=== PATIENT | male | born 1935 | race Caucasian/White ===

== ENCOUNTER 2017-05-09 11:00 | Inpatient (IN) | payer MEDICARE ==
[~2017-05-09] VITALS: Ht 182.9 cm; Wt 81.3 kg
[~2017-05-09 11:00] MED LIST: GABAPENTIN300 MG PO; HYDROCHLOROTHIA25 MG PO; NIFEDIPINE ER30 M1 PO; NORCO 10-325 T1 EACH PO; POTASSIUM CHLO10 ME1 PO; SIMVASTATIN40 MG PO; TRAZODONE HCL50 MG PO
--- OUTSIDE RECORDS SUMMARY | 2017-05-09 11:02 | XMS REPORT ---
Author Author [facility] Address Unknown Phone Unavailable Care Team Providers Care Harvesting Supervisor Name Role Phone PRINCE PADILLA Unavailable Unavailable Problems This patient has no known problems. Allergies, Adverse Reactions, Alerts This patient has no known allergies or adverse reactions. Medications This patient has no known medications. Results Test Description Test Time Test Comments Text Results Atomic Results Result Comments CT, BRAIN, WITHOUT CONTRAST 2017-01-23 15:19:00 Reason for exam:-> headacheWhat is the patient's sedation requirement?->No Sedation FINAL REPORT CT head without contrast 01/23/2017 3:17 PM CLINICAL HISTORY: headachetrauma TECHNIQUE: Axial noncontrast CT images through the head were obtained. This examination was performed according to our departmental dose optimization program, which includes automated exposure control, adjustment of the mA and/or kV according to patient size, and/or use of iterated reconstruction technique. COMPARISON: None available FINDINGS: There is no hemorrhage, extra-axial collection, mass, or midline shift. 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 There is mild microvascular ischemia in the supratentorial white matter. There is atherosclerotic calcification of the intracranial arterial vasculature. There is generalized parenchymal volume loss. The visualized paranasal sinuses and mastoid air cells are well aerated. The skull is intact. IMPRESSION: No intracranial hemorrhage or mass effect. Chronic appearing findings as discussed. If concern for acute pathology persists, further evaluation with MRI is recommended. Signed: Raffi Laguna Verified Date/Time: 01/23/2017 15:19:20 Reading Location: [facility] C013V Neuro Reading Room , HAND, 3 VIEWS, RIGHT 2017-01-23 14:12:00 Reason for exam:->traumaShould this be performed at the bedside?->No FINAL REPORT INDICATION:Right hand pain after fall. COMPARISON: None. TECHNIQUE: Right hand radiograph three views. FINDINGS / IMPRESSION:No fracture or malalignment is demonstrated. In the soft tissues of the distal thumb there is a 2 mm metallic densities suspicious for foreign body. Joint space loss with mild osteophytosis is noted at the first CMC joint, STT joint, and long finger DIP joint. Signed: Geraldo Mac MDReport Verified Date/Time: 01/23/2017 14:12:23 Reading Location: [facility] C013X Ortho Consult Reading Room , KNEE, COMPLETE (4 VIEWS), LEFT 2017-01-23 14:01:00 Reason for exam:-> FALLShould this be performed at the bedside?->No FINAL REPORT Left femur dated 01/23/2017 Clinical Information: trauma COMMENT: 4 views of the right femur were submitted for interpretation. The right femur is intact. Degenerative changes are seen in the right. The soft tissue of the right thigh is normal. There is diffuse vessel calcification involving the right femoral and popliteal arteries. IMPRESSION: No fracture in the right femur. Left knee dated 01/23/2017 Comment: 4 views of the left knee were submitted for interpretation. No fracture, dislocation, or subluxation seen in the left knee. Mild degenerative changes in the left knee with marginal osteophyte formation. No joint or suprapatellar effusion present. Prepatellar subcutaneous soft tissue emphysema is noted. There is vascular calcification involving the popliteal artery. Impression: Prepatellar subcutaneous soft tissue edema. Left hand dated 01/23/2017 Clinical Information: trauma Comment: 5 views of the left hand were submitted for interpretation. The scaphoid is small in caliber and sclerotic in appearance. There is widening of the scapholunate space. There is generalized osteopenia. Old fracture seen involving the left fifth metacarpal. Soft tissue of the left hand is unremarkable. No soft tissue laceration or radiopaque foreign body noted. Impression: Small sclerotic scaphoid and widening of the scapholunate space suggestive of prior trauma. Pelvis dated 01/23/2017 Comment: Single frontal view has demonstrated intact sacrum, ilium, ischium, and pubic bones. The SI and hip joints are well maintained bilaterally. Impression: No fracture in the pelvis. Signed: Contreras Sahu Verified Date/Time: 01/23/2017 14:01:34 Reading Location: [facility] C013Y CT Body Reading Room , FEMUR, MIN. 2 VIEWS, RIGHT 2017-01-23 14:01:00 Reason for exam:-> traumaShould this be performed at the bedside?->No FINAL REPORT Left femur dated 01/23/2017 Clinical Information: trauma COMMENT: 4 views of the right femur were submitted for interpretation. The right femur is intact. Degenerative changes are seen in the right. The soft tissue of the right thigh is normal. There is diffuse vessel calcification involving the right femoral and popliteal arteries. IMPRESSION: No fracture in the right femur. Left knee dated 01/23/2017 Comment: 4 views of the left knee were submitted for interpretation. No fracture, dislocation, or subluxation seen in the left knee. Mild degenerative changes in the left knee with marginal osteophyte formation. No joint or suprapatellar effusion present. Prepatellar subcutaneous soft tissue emphysema is noted. There is vascular calcification involving the popliteal artery. Impression: Prepatellar subcutaneous soft tissue edema. Left hand dated 01/23/2017 Clinical Information: trauma Comment: 5 views of the left hand were submitted for interpretation. The scaphoid is small in caliber and sclerotic in appearance. There is widening of the scapholunate space. There is generalized osteopenia. Old fracture seen involving the left fifth metacarpal. Soft tissue of the left hand is unremarkable. No soft tissue laceration or radiopaque foreign body noted. Impression: Small sclerotic scaphoid and widening of the scapholunate space suggestive of prior trauma. Pelvis dated 01/23/2017 Comment: Single frontal view has demonstrated intact sacrum, ilium, ischium, and pubic bones. The SI and hip joints are well maintained bilaterally. Impression: No fracture in the pelvis. Signed: Contreras Sahuort Verified Date/Time: 01/23/2017 14:01:34 Reading Location: [facility] C013Y CT Body Reading Room , PELVIS, 1 OR 2 VIEWS 2017-01-23 14:01:00 Reason for exam:->FALLShould this be performed at the bedside?->No FINAL REPORT Left femur dated 01/23/2017 Clinical Information: trauma COMMENT: 4 views of the right femur were submitted for interpretation. The right femur is intact. Degenerative changes are seen in the right. The soft tissue of the right thigh is normal. There is diffuse vessel calcification involving the right femoral and popliteal arteries. IMPRESSION: No fracture in the right femur. Left knee dated 01/23/2017 Comment: 4 views of the left knee were submitted for interpretation. No fracture, dislocation, or subluxation seen in the left knee. Mild degenerative changes in the left knee with marginal osteophyte formation. No joint or suprapatellar effusion present. Prepatellar subcutaneous soft tissue emphysema is noted. There is vascular calcification involving the popliteal artery. Impression: Prepatellar subcutaneous soft tissue edema. Left hand dated 01/23/2017 Clinical Information: trauma Comment: 5 views of the left hand were submitted for interpretation. The scaphoid is small in caliber and sclerotic in appearance. There is widening of the scapholunate space. There is generalized osteopenia. Old fracture seen involving the left fifth metacarpal. Soft tissue of the left hand is unremarkable. No soft tissue laceration or radiopaque foreign body noted. Impression: Small sclerotic scaphoid and widening of the scapholunate space suggestive of prior trauma. Pelvis dated Comment: Single frontal view has demonstrated intact sacrum, ilium, ischium, and pubic bones. The SI and hip joints are well maintained bilaterally. Impression: No fracture in the pelvis. Signed: Contreras Sahu MDReport Verified Date/Time: 01/23/2017 14:01:34 Reading Location: [facility] C013Y CT Body Reading Room , HAND, 3 VIEWS, LEFT 2017-01-23 14:01:00 Reason for exam:->FALL FINAL REPORT Left femur dated 01/23/2017 Clinical Information : trauma COMMENT: 4 views of the right femur were submitted for interpretation. The right femur is intact. Degenerative changes are seen in the right. The soft tissue of the right thigh is normal. There is diffuse vessel calcification involving the right femoral and popliteal arteries. IMPRESSION: No fracture in the right femur. Left knee dated 01/23/2017 Comment: 4 views of the left knee were submitted for interpretation. No fracture, dislocation, or subluxation seen in the left knee. Mild degenerative changes in the left knee with marginal osteophyte formation. No joint or suprapatellar effusion present. Prepatellar subcutaneous soft tissue emphysema is noted. There is vascular calcification involving the popliteal artery. Impression: Prepatellar subcutaneous soft tissue edema. Left hand dated 01/23/2017 Clinical Information: trauma Comment: 5 views of the left hand were submitted for interpretation. The scaphoid is small in caliber and sclerotic in appearance. There is widening of the scapholunate space. There is generalized osteopenia. Old fracture seen involving the left fifth metacarpal. Soft tissue of the left hand is unremarkable. No soft tissue laceration or radiopaque foreign body noted. Impression: Small sclerotic scaphoid and widening of the scapholunate space suggestive of prior trauma. Pelvis dated 01/23/2017 Comment: Single frontal view has demonstrated intact sacrum, ilium, ischium, and pubic bones. The SI and hip joints are well maintained bilaterally. Impression: No fracture in the pelvis. Signed: Contreras Sahu MDRort Verified Date/Time: 01/23/2017 14:01:34 Reading Location: [address] Body Reading Room C METABOLIC PANEL 2016-06-10 05:51:00 SODIUM (BEAKER) (test payo=141) 135 meq/L 136-145 POTASSIUM (BEAKER) (test iqnd=815) 4.5 meq/L 3.5-5.1 CHLORIDE (BEAKER) (test gfvc=156) 101 meq/L 98-107 CO2 (BEAKER) (test eywv=995) 26 meq/L 22-29 BLOOD UREA NITROGEN (BEAKER) (test fgyy=897) 14 mg/dL 7-21 CREATININE (BEAKER) (test qwyl=682) 0.73 mg/dL 0.57-1.25 GLUCOSE RANDOM (BEAKER) (test ukhp=509) 109 mg/dL 70-105 CALCIUM (BEAKER) (test yeue=798) 8.5 mg/dL 8.4-10.2 EGFR (BEAKER) (test harx=1358) 104 mL/min/1.73 sq m ESTIMATED GFR IS NOT ACCURATE CREATININE CLEARANCE IN PREDICTING GLOMERULAR FILTRATION RATE. ESTIMATED GFR IS NOT APPLICABLE FOR DIALYSIS PATIENTS. CBC (HEMOGRAM ONLY)2016-06-09 10:41:00* Test Item Value Reference Range Comments WHITE BLOOD CELL COUNT (BEAKER) (test tqax=143) 85.7 K/ L 4.0-10.0 RED BLOOD CELL COUNT (BEAKER) (test htiu=195) 3.29 M/ L 4.20-5.80 HEMOGLOBIN (BEAKER) (test beys=037) 10.0 GM/DL 13.0-16.8 HEMATOCRIT (BEAKER) (test fbpr=170) 32.0 % 40.0-50.0 MEAN CORPUSCULAR VOLUME (BEAKER) (test ygbw=364) 97.2 fL 82.0-98.0 MEAN CORPUSCULAR HEMOGLOBIN (BEAKER) (test vxkg=525) 30.5 pg 27.0-33.0 MEAN CORPUSCULAR HEMOGLOBIN CONC (BEAKER) (test fdsk=534) 31.3 GM/DL 32.0- 36.0 RED CELL DISTRIBUTION WIDTH (BEAKER) (test kisj=494) 16.1 % 10.3-14.2 PLATELET COUNT (BEAKER) (test jogn=020) 172 K/CU MM 150-430 MEAN PLATELET VOLUME (BEAKER) (test cajs=101) 6.9 fL 6.5-10.5 NUCLEATED RED BLOOD CELLS (BEAKER) (test xbrv=510) 0 /100 WBC 0-0 0.000.560.900.000.000.400.000.000.000.000.000.000.900.000.002.320.000.000.000.00 0.000.000.800.000.002.550.000.000.000.000.000.000.800.000.000.160.000.000.000.00 0.000.000.900.000.001.930.000.000.000.000.000.000.900.000.001.520.000.00[facility] MET[facility] [id number] 05:49:00* Test Item Value Reference Range Comments SODIUM (BEAKER) (test dnkn=867) 132 meq/L 136-145 POTASSIUM (BEAKER) (test evxh=440) 4.8 meq/L 3.5-5.1 CHLORIDE (BEAKER) (test qwdd=845) 100 meq/L 98-107 CO2 (BEAKER) (test utmv=692) 22 meq/L 22-29 BLOOD UREA NITROGEN (BEAKER) (test mzio=899) 9 mg/dL 7-21 CREATININE (BEAKER) (test aygo=702) 0.72 mg/dL 0.57-1.25 GLUCOSE RANDOM (BEAKER) (test dbiy=316) 122 mg/dL 70-105 CALCIUM (BEAKER) (test tcuu=993) 8.3 mg/dL 8.4-10.2 EGFR (BEAKER) (test denf=5101) 105 mL/min/1.73 sq m ESTIMATED GFR IS NOT ACCURATE CREATININE CLEARANCE IN PREDICTING GLOMERULAR FILTRATION RATE. ESTIMATED GFR IS NOT APPLICABLE FOR DIALYSIS PATIENTS. CBC (HEMOGRAM ONLY)2016-06-08 08:35:00* Test Item Value Reference Range Comments WHITE BLOOD CELL COUNT (BEAKER) (test ewql=010) 102.0 K/ L 4.0-10.0 RED BLOOD CELL COUNT (BEAKER) (test ocqm=631) 3.89 M/ L 4.20-5.80 HEMOGLOBIN (BEAKER) (test ozcc=852) 11.3 GM/DL 13.0-16.8 HEMATOCRIT (BEAKER) (test hahf=472) 37.8 % 40.0-50.0 MEAN CORPUSCULAR VOLUME (BEAKER) (test zfhn=799) 97.1 fL 82.0-98.0 MEAN CORPUSCULAR HEMOGLOBIN (BEAKER) (test qqgt=768) 29.0 pg 27.0-33.0 MEAN CORPUSCULAR HEMOGLOBIN CONC (BEAKER) (test jwax=073) 29.8 GM/DL 32.0- 36.0 RED CELL DISTRIBUTION WIDTH (BEAKER) (test soae=060) 15.6 % 10.3-14.2 PLATELET COUNT (BEAKER) (test jhrc=106) 151 K/CU MM 150-430 MEAN PLATELET VOLUME (BEAKER) (test bcfg=273) 7.0 fL 6.5-10.5 NUCLEATED RED BLOOD CELLS (BEAKER) (test ovgs=603) 0 /100 WBC 0-0 0.000.900.900.000.001.300.000.000.000.000.000.900.900.000.000.000.000.00BASIC METABOLIC [id number] 05:46:00* Test Item Value Reference Range Comments SODIUM (BEAKER) (test lrmx=918) 131 meq/L 136-145 POTASSIUM (BEAKER) (test gtkm=744) 5.0 meq/L 3.5-5.1 Specimen slightly hemolyzed CHLORIDE (BEAKER) (test hvfo=906) 99 meq/L 98-107 CO2 (BEAKER) (test xluy=150) 24 meq/L 22-29 BLOOD UREA NITROGEN (BEAKER) (test wkcf=697) 7 mg/dL 7-21 CREATININE (BEAKER) (test lzov=616) 0.73 mg/dL 0.57-1.25 Specimen slightly hemolyzed GLUCOSE RANDOM (BEAKER) (test iyrn=059) 183 mg/dL 70-105 CALCIUM (BEAKER) (test zvyh=852) 8.9 mg/dL 8.4-10.2 EGFR (BEAKER) (test ulem=0159) 104 mL/min/1.73 sq m ESTIMATED GFR IS NOT ACCURATE CREATININE CLEARANCE IN PREDICTING GLOMERULAR FILTRATION RATE. ESTIMATED GFR IS NOT APPLICABLE FOR DIALYSIS PATIENTS. CBC (HEMOGRAM ONLY)2016-06-07 09:34:00* Test Item Value Reference Range Comments WHITE BLOOD CELL COUNT (BEAKER) (test hody=019) 89.0 K/ L 4.0-10.0 RED BLOOD CELL COUNT (BEAKER) (test fekj=971) 3.41 M/ L 4.20-5.80 HEMOGLOBIN (BEAKER) (test arlj=900) 10.6 GM/DL 13.0-16.8 HEMATOCRIT (BEAKER) (test remc=353) 32.9 % 40.0-50.0 MEAN CORPUSCULAR VOLUME (BEAKER) (test tqgl=925) 96.5 fL 82.0-98.0 MEAN CORPUSCULAR HEMOGLOBIN (BEAKER) (test yvky=073) 31.1 pg 27.0-33.0 MEAN CORPUSCULAR HEMOGLOBIN CONC (BEAKER) (test ulsm=888) 32.2 GM/DL 32.0- 36.0 RED CELL DISTRIBUTION WIDTH (BEAKER) (test bnih=221) 15.3 % 10.3-14.2 PLATELET COUNT (BEAKER) (test whgl=020) 136 K/CU MM 150-430 MEAN PLATELET VOLUME (BEAKER) (test kwnv=510) 6.8 fL 6.5-10.5 NUCLEATED RED BLOOD CELLS (BEAKER) (test rode=288) 0 /100 WBC 0-0 0.000.800.000.001.690.000.000.000.000.000.000.800.000.002.220.000.000.000.000.00 0.000.900.000.000.000.000.000.000.000.000.000.900.000.000.000.000.00BASIC METABOLIC [id number] 05:28:00* Test Item Value Reference Range Comments SODIUM (BEAKER) (test krif=450) 132 meq/L 136-145 POTASSIUM (BEAKER) (test xijr=380) 4.9 meq/L 3.5-5.1 CHLORIDE (BEAKER) (test kult=090) 100 meq/L 98-107 CO2 (BEAKER) (test qfnt=251) 25 meq/L 22-29 BLOOD UREA NITROGEN (BEAKER) (test tcee=922) 11 mg/dL 7-21 CREATININE (BEAKER) (test kbwh=047) 0.82 mg/dL 0.57-1.25 GLUCOSE RANDOM (BEAKER) (test lveu=188) 152 mg/dL 70-105 CALCIUM (BEAKER) (test pqam=033) 8.3 mg/dL 8.4-10.2 EGFR (BEAKER) (test knuh=1415) 91 mL/min/1.73 sq m ESTIMATED GFR IS NOT ACCURATE CREATININE CLEARANCE IN PREDICTING GLOMERULAR FILTRATION RATE. ESTIMATED GFR IS NOT APPLICABLE FOR DIALYSIS PATIENTS. HEMOGLOBIN AND [id number] 17:06:00* Test Item Value Reference Range Comments HEMOGLOBIN (BEAKER) (test dhyb=398) 11.0 GM/DL 13.0-16.8 HEMATOCRIT (BEAKER) (test oxev=076) 34.6 % 40.0-50.0 URINALYSIS W/ [id number] 15:13:00* Test Item Value Reference Range Comments COLOR (BEAKER) (test wgzm=644) Yellow CLARITY (BEAKER) (test hxhy=476) Clear SPECIFIC GRAVITY UA (BEAKER) (test wniq=754) 1.011 1.001-1.035 PH UA (BEAKER) (test msai=494) 7.0 5.0-8.0 PROTEIN UA (BEAKER) (test fixq=112) Negative Negative GLUCOSE UA (BEAKER) (test zioi=002) Negative Negative KETONES UA (BEAKER) (test rzcc=900) Negative Negative BILIRUBIN UA (BEAKER) (test inxg=836) Negative Negative BLOOD UA (BEAKER) (test qvvm=472) Negative Negative NITRITE UA (BEAKER) (test zzvs=386) Negative Negative LEUKOCYTE ESTERASE UA (BEAKER) (test jogc=443) Negative Negative UROBILINOGEN UA (BEAKER) (test pzvp=033) 0.2 mg/dL 0.2-1.0 RBC UA (BEAKER) (test amqr=785) 3 /HPF WBC UA (BEAKER) (test zcxf=514) 0 /HPF SOURCE(BEAKER) (test swoi=0957) Urine, Clean Catch CBC W/PLT COUNT & AUTO [id number] 14:23:00* Test Item Value Reference Range Comments WHITE BLOOD CELL COUNT (BEAKER) (test pbna=833) 104.0 K/ L 4.0-10.0 RED BLOOD CELL COUNT (BEAKER) (test ujsh=016) 3.64 M/ L 4.20-5.80 HEMOGLOBIN (BEAKER) (test ntio=324) 11.4 GM/DL 13.0-16.8 HEMATOCRIT (BEAKER) (test hwrj=858) 34.5 % 40.0-50.0 MEAN CORPUSCULAR VOLUME (BEAKER) (test ytor=871) 94.9 fL 82.0-98.0 MEAN CORPUSCULAR HEMOGLOBIN (BEAKER) (test pdjp=230) 31.2 pg 27.0-33.0 MEAN CORPUSCULAR HEMOGLOBIN CONC (BEAKER) (test dsib=415) 32.9 GM/DL 32.0- 36.0 RED CELL DISTRIBUTION WIDTH (BEAKER) (test qwlr=355) 15.0 % 10.3-14.2 PLATELET COUNT (BEAKER) (test zuxr=911) 158 K/CU MM 150-430 MEAN PLATELET VOLUME (BEAKER) (test inet=982) 6.9 fL 6.5-10.5 NUCLEATED RED BLOOD CELLS (BEAKER) (test pepp=127) 0 /100 WBC 0-0 0.000.900.900.000.001.220.000.000.000.000.000.000.900.000.001.130.000.000.000.00 0.000.000.900.000.001.580.000.000.000.000.000.000.900.000.001.600.000.00 (MANUAL DIFFERENTIAL)2016-06-06 14:23:00* Test Item Value Reference Range Comments NEUTROPHILS - REL (DIFF) (BEAKER) (test lnaw=9980) 5 % LYMPHOCYTES - REL (DIFF) (BEAKER) (test vbun=7576) 93 % MONOCYTES - REL (DIFF) (BEAKER) (test rcbt=9595) 1 % EOSINOPHILS - REL (DIFF) (BEAKER) (test ipfp=2325) 1 % NEUTROPHILS - ABS (DIFF) (BEAKER) (test ruja=1738) 5.20 K/ L 1.80-8.00 LYMPHOCYTES - ABS (DIFF) (BEAKER) (test tont=5582) 96.72 K/ L 1.48-4.50 MONOCYTES - ABS (DIFF) (BEAKER) (test utwy=9043) 1.04 K/ L 0.00-1.30 EOSINOPHILS - ABS (DIFF) (BEAKER) (test sopb=3797) 1.04 K/ L 0.00-0.50 TOTAL COUNTED (BEAKER) (test xkel=3186) 100 PLT MORPHOLOGY (BEAKER) (test mhsf=455) Normal RBC MORPHOLOGY (BEAKER) (test szhl=407) Normal ATYPICAL LYMPHS(BEAKER) (test ymzr=4679) Present SMUDGE CELLS (BEAKER) (test khbs=1019) Present BASIC METABOLIC [id number] 13:21:00* Test Item Value Reference Range Comments SODIUM (BEAKER) (test lbtj=222) 136 meq/L 136-145 POTASSIUM (BEAKER) (test yova=519) 4.5 meq/L 3.5-5.1 CHLORIDE (BEAKER) (test poot=767) 100 meq/L 98-107 CO2 (BEAKER) (test vbbh=875) 25 meq/L 22-29 BLOOD UREA NITROGEN (BEAKER) (test oful=989) 14 mg/dL 7-21 CREATININE (BEAKER) (test lqno=987) 0.91 mg/dL 0.57-1.25 GLUCOSE RANDOM (BEAKER) (test cfcn=475) 113 mg/dL 70-105 CALCIUM (BEAKER) (test mmji=214) 9.3 mg/dL 8.4-10.2 EGFR (BEAKER) (test pbvy=8372) 80 mL/min/1.73 sq m ESTIMATED GFR IS NOT ACCURATE CREATININE CLEARANCE IN PREDICTING GLOMERULAR FILTRATION RATE. ESTIMATED GFR IS NOT APPLICABLE FOR DIALYSIS PATIENTS.
[2017-05-09] MEDS ORDERED: MORPHINE SULFATE 2 MG/ML SYR IV STA ×2 (11:38→20:31)
[2017-05-09] MEDS ORDERED: ONDANSETRON HCL INJ 2 MG/ML VIAL IV STA (11:38)
[2017-05-09 11:58] LABS: HEMATOCRIT 31.3 % (38.2-49.6); HEMOGLOBIN 8.7 g/dL (14.0-18.0); LYMPHOCYTES # (AUTO) 96.7 (1.0-3.2); LYMPHOCYTES % 94.8 % (18.0-39.1); MEAN CORPUSCULAR HGB CONC 27.8 g/dL (31-35); MEAN CORPUSCULAR VOLUME 93.4 fL (81-99); MONOCYTES # (AUTO) 0.1 (0.2-0.8); MONOCYTES % 0.1 % (4.4-11.3); PLATELET COUNT 296 x10e3/uL (140-360); RED BLOOD COUNT 3.35 x10e6/uL (4.3-5.7); RED CELL DISTRIBUTION WIDTH 16.7 % (11.7-14.4)
[2017-05-09 12:05] LABS: INR 1.23; PARTIAL THROMBOPLASTIN TIME 26.7 seconds (23.8-35.5); PROTHROMBIN TIME 14.6 seconds (11.9-14.5)
[2017-05-09 12:13] LABS: ALANINE AMINOTRANSFERASE 17 IU/L (0-55); ALBUMIN 3.7 g/dL (3.5-5.0); ALBUMIN/GLOBULIN RATIO 1.5 (0.8-2.0); ALKALINE PHOSPHATASE 118 IU/L (40-150); ANION GAP 12.7 mmol/L (8-16); BLOOD UREA NITROGEN 15 mg/dL (7-26); BUN/CREATININE RATIO 19 (6-25); CALCIUM 8.8 mg/dL (8.4-10.2); CARBON DIOXIDE 27 mmol/L (22-29); CHLORIDE 105 mmol/L (98-107); CREATINE KINASE 110 IU/L (30-200); CREATININE, SERUM 0.78 mg/dL (0.72-1.25); EST GLOMERULAR FILTRATION RATE > 60 ML/MIN (60-); GLUCOSE 121 mg/dL (74-118); POTASSIUM 3.7 mmol/L (3.5-5.1); SODIUM 141 mmol/L (136-145)
[2017-05-09 12:17] LABS: BILIRUBIN,URINE NEGATIVE (NEGATIVE); CLARITY,URINE CLEAR (CLEAR); COLOR,URINE YELLOW (YELLOW); KETONES,URINE NEGATIVE (NEGATIVE); LEUKOCYTE ESTERASE ,URINE NEGATIVE (NEGATIVE); NITRITE,URINE NEGATIVE (NEGATIVE); PROTEIN,URINE DIPSTICK 1+ (NEGATIVE); URINE UROBILINOGEN 4 mg/dL (0.2 - 1)
[2017-05-09 12:34] LABS: WBC,URINE (MAN) 0-5 /HPF (0-5)
--- NOTE | 2017-05-09 12:34 | Diagnostic Imaging Report ---
PROCEDURE: CHEST SINGLE (PORTABLE) 1207 hrs. COMPARISON: Chest x-ray 09/20/14. INDICATIONS: BILATERAL LEG PAIN/SWELLING. TESTICULAR SWELLING FINDINGS: LUNGS: The bilateral airspace opacities are present, right lung more so than the left. The intrapulmonary vasculature is normal. PLEURA: There is blunting of the left lateral costophrenic angle. No pneumothorax. HEART \T\ MEDIASTINUM: The heart top normal in size. There is bilateral hilar prominence, particularly the right lung. BONES \T\ SOFT TISSUES: No lytic or blastic lesions CONCLUSION: Prominent right hilum and patchy airspace opacities in the lungs, right more so than the left. This could represent malignancy or an infectious/inflammatory process. Consider further evaluation with CT of the chest with intravenous contrast. Small left pleural effusion. Dictated by: Luz Maria Ford M.D. on 05/09/2017 at 12:34 Electronically approved by: Luz Maria Ford M.D. on 05/09/2017 at 12:34
[2017-05-09 12:35] LABS: BACTERIA,URINE RARE /HPF; EPITHELIAL CELLS,URINE RARE /LPF
[2017-05-09 13:12] LABS: LYMPHOCYTES % (MANUAL) 92 % (19-48); NEUTROPHILS % (MANUAL) 5 % (40-74)
[2017-05-09 13:13] LABS: HOWELL-JOLLY BODIES FEW; HYPOCHROMASIA MODERATE; PLATELET ESTIMATE ADEQUATE; PLATELET MORPHOLOGY COMMENT FEW LARGE; POIKILOCYTOSIS SLIGHT; RBC MORPHOLOGY COMMENT ABNORMAL
[2017-05-09 13:14] LABS: ANISOCYTOSIS MODERATE
--- NOTE | 2017-05-09 14:22 | Diagnostic Imaging Report ---
PROCEDURE:CT ABDOMEN AND PELVIS WITH CONTRAST COMPARISON:None. INDICATIONS:LOWER ABDOMINAL PAIN TECHNIQUE: Multidetector CT scanning of the abdomen and pelvis was performed after the administration of 100 cc of nonionic contrast. Coronal and sagittal reformations were obtained. Routine protocol performed. FINDINGS: There is beam hardening artifact across the upper abdomen from the patient's arms. Lung bases: Posterior layering pleural effusions measure 5.3 cm on the right and 3.4 cm on the left. There is bibasilar atelectasis. Small foci of pneumonia cannot be excluded. The heart is mildly enlarged. Surgical clips at the GE junction are present. Liver: There is artifact across the dome from the patient's arms. No mass. The portal vein is patent and measures 16 mm in diameter Biliary: The gallbladder is present and grossly normal in appearance. No biliary ductal dilatation. Spleen: Normal size and attenuation without mass Pancreas: Mildly atrophic. No mass or ductal dilatation. Adrenal Glands: No mass Kidneys: Symmetric enhancement. No hydronephrosis. No enhancing mass. Gastrointestinal: Small gastric diverticulum at the fundus. Partial gastrectomy has been performed. There is particulate material in the stomach and also the efferent limb of small bowel. The efferent limb is distended to 6.5 cm. More distal to this is an enteroenterostomy distended with fluid to a diameter of 4.5 cm. There is a knuckle of small bowel that invaginates the inferior aspect of this dilated small bowel loop mimicking intussusception (coronal image 29). Mid and distal small bowel loops are normal in diameter with normal wall thickness. Moderate amount of stool in the large bowel. There are chain sutures in the right colon from primary ileocolic anastomosis. Large bowel brown are not thickened. No pericolonic inflammation. Vasculature: The are calcifications throughout the aorta. No aneurysmal dilatation. Lymph nodes: Paracaval lymph nodes measure 2.2 x 2.6 cm. A left periaortic lymph node measures 2.5 x 2.2 cm. Lymph nodes along the iliac chains are enlarged measuring up to 2.5 cm. There is bulky bilateral inguinal lymphadenopathy with lymph nodes measuring up to 4.7 x 2.6 cm. There are no enlarged mesenteric lymph nodes. Peritoneum/Retroperitoneum: No evidence of free fluid or fluid collection. Bladder: Collapsed around a [place] catheter. No ureteral dilatation. Reproductive organs: Unremarkable . Musculoskeletal: There are mild degenerative changes of the spine without compression deformities or listhesis. There is mild dextroscoliosis of the lumbar spine. There is enlargement and permeative appearance of the posterior right 11th rib without associated fracture. Soft tissues: Marked scrotal edema and diffuse subcutaneous edema of the lower abdomen and pelvis. CONCLUSION: 1. Significant retroperitoneal and inguinal lymphadenopathy of unknown etiology. No splenomegaly. Lymphoma cannot be excluded. Inguinal lymph nodes are large enough for biopsy. Permeative lesion in a right rib is concerning for neoplastic process. 2. Multiple bowel surgeries with patulous small bowel loops in left brittnee-abdomen. One small bowel loop is draped over adjacent normal-appearing small bowel loop. This does not meet the classic definition of intussusception. No evidence of bowel obstruction. 3. Large right and moderate left pleural effusions. 4. Diffuse subcutaneous edema particularly in the pelvis and scrotum. 5. Portal hypertension without CT evidence of cirrhosis. Dictated by: Luz Maria Ford M.D. on 05/09/2017 at 14:22 Electronically approved by: Luz Maria Ford M.D. on 05/09/2017 at 14:22
[2017-05-09] MEDS ORDERED: MORPHINE SULFATE 2 MG/ML SYR IV ONE (14:24)
[2017-05-09] MEDS ORDERED: ONDANSETRON HCL INJ 2 MG/ML VIAL IV ONE (14:24)
--- NOTE | 2017-05-09 14:27 | Diagnostic Imaging Report ---
PROCEDURE:X-RAY LEFT FOOT, COMPLETE COMPARISON:None. INDICATIONS:FOOT WOUND FINDINGS: The area of wound was not indicated or marked. The first and second toes overlap. There is marked hallux valgus. Focal cortical thickening of the mid diaphysis of the second metatarsal is suggestive of a healed fracture deformity. No evidence of acute fracture of the forefoot. Midfoot is intact and normal in appearance. No fracture or dislocation of the hindfoot. Soft tissues: Soft tissue swelling at the dorsum of the foot at the level of the metatarsals. No radiopaque foreign bodies in the soft tissues. CONCLUSION: Compromised study as described above. No conclusive evidence of osteomyelitis. Hallux valgus. Healed fracture deformity of the second metatarsal. Dictated by: Luz Maria Ford M.D. on 05/09/2017 at 14:26 Electronically approved by: Luz Maria Ford M.D. on 05/09/2017 at 14:26
[2017-05-09] MEDS ORDERED: FUROSEMIDE INJ 10 MG/ML 4 ML VIAL IV ONE (15:00)
[2017-05-09] MEDS ORDERED: HYDRALAZINE HCL 20 MG/ML VIAL IV PRN (17:30)
[2017-05-09] MEDS: FAMOTIDINE 20 MG/2 ML VIAL IV SCH (18:00)
[2017-05-09] MEDS ORDERED: MORPHINE SULFATE 2 MG/ML SYR IV PRN (18:45)
[2017-05-09 18:46] VITALS: BP 190/91
[2017-05-09 20:00] VITALS: BP 155/86
[2017-05-09] MEDS: IPRATROPIUM BROMIDE 0.02% 2.5 ML NEB NEB SCH ×2 (20:10→23:20)
[2017-05-09] MEDS ORDERED: IOPAMIDOL 370 MG/ML 200 ML INFUS..BTL INJ ONE (20:30)
[2017-05-09] MEDS ORDERED: SODIUM CHLORIDE 0.9% 50ML 50 ML ONE (20:30)
[2017-05-09] MEDS ORDERED: HEPARIN SOD (PORCINE) 5,000 UNIT/ML VIAL SC SCH (21:00)
[2017-05-09 23:45] VITALS: BP 155/86
[2017-05-10] VITALS (7 sets, daily range): BP systolic 135–177; BP diastolic 72–107
[2017-05-10] MEDS: MORPHINE SULFATE 2 MG/ML SYR IV PRN ×2 (00:24→04:48)
[2017-05-10] MEDS ORDERED: ONDANSETRON HCL INJ 2 MG/ML VIAL IV PRN (03:15)
[2017-05-10] MEDS: IPRATROPIUM BROMIDE 0.02% 2.5 ML NEB NEB SCH ×6 (03:15→22:00)
--- NOTE | 2017-05-10 04:05 | Consultation ---
DATE OF CONSULTATION: May 10, 2017 PULMONARY MEDICINE CONSULTATION REFERRING SOURCE: Mc COVERING PHYSICIAN: Dr. James Harman. HISTORY: Mr. Rodas is a pleasant 81-year-old gentleman with shortness of breath. Patient with [facility] visit due to increasing leg edema. Patient with edema of the scrotum as well. He is having more trouble walking. While symptoms have been going on for about 2 weeks, it has accelerated over last 3 days. He is developing sharp pain due to stretching. Patient came to the emergency room. On exam, he is seen to have the edema of the lower body especially. He had some crackles in the lungs. Due to shortness of breath, he required increasing amounts of oxygen. He was transiently placed on 15 L per minute of oxygen and then later on placed on nonrebreather mask. Chest radiography demonstrates bibasilar opacity as well as right greater than left pleural effusion. Patient subsequently had CT chest that demonstrates enlarged right-sided pleural effusion as well as left moderate-sized pleural effusion as well as possible opacities that cannot be ruled out as there was abdominal CT that only had lower thoracic cuts. Patient with portal hypertension without CT evidence of cirrhosis on that abdominal CT. He also had a lot of lymphadenopathy in the abdomen and pelvic area. He is known to have diagnosis of chronic CLL. He was a minimal smoker in his youth. He did grow up with wood and coal burning stoves until he was age 21, but there was good ventilation for these devices. Patient with allergies, but no definite diagnosis of asthma. I am consulted. PAST MEDICAL HISTORY 1. Hypertension. 2. Dyslipidemia. 3. Neck pain. 4. CLL. 5. Intermittent allergies. MEDICATIONS: List reviewed per the electronic record. ALLERGIES: NO KNOWN DRUG ALLERGIES. SOCIAL HISTORY: No alcohol, no drugs. Patient smoked from age 21 to 27, 1 pack per day. 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 He currently ambulates using a cane with exercise tolerance about 1 home distance. He lives with his . FAMILY HISTORY: Noncontributory. REVIEW OF SYSTEMS: Difficult to get due to early dyspnea. PHYSICAL EXAMINATION VITAL SIGNS: Include heart rate in the 100s and 110s often. Blood pressure sustained to mildly elevated with the example of blood pressure being 191/91. Currently, switched back to 95% oxygen saturation with 4 L per minute nasal cannula. GENERAL: Trouble completing full sentences. Slow affect. Slow latency of thought. HEENT: Normocephalic, atraumatic. NECK: Supple. Throat is midline. LUNGS: Bilateral air entry is good, [id number] wheezing, a few rhonchi. CARDIOVASCULAR: S1, S2. No murmurs, rubs or gallops. ABDOMEN: Soft, nontender. EXTREMITIES: No clubbing. No cyanosis. There is 2+ edema. INTEGUMENT: No rash. No purpura. There is rubor to the bilateral lower extremities. LABS: 3.7 potassium, 15 BUN, 0.8 creatinine, 27 bicarbonate. 102 white count with 5% neutrophils, 92% lymphocytes, 31 hematocrit, 296,000 platelets. BNP is 870. Patient with LFTs mostly unremarkable and they include albumin of 3.7. INR is 1.23. Chest radiography: As above. IMPRESSION 1. Fluid overload. 2. Abnormal chest radiography, suggestive of congestive heart failure. This diagnosis has not been established in the past, will need confirmation. 3. Allergies. 4. Treat for possible asthma. 5. History of hypertension. 6. Dyslipidemia. 7. History of chronic lymphocytic leukemia. 8. Functional immunosuppression. 9. Treat for possible pneumonia. 10. Pleural effusions, substantial. PLAN: At this time, we recommend to get thoracentesis. Treatment with antibiotics for possible pneumonia or sepsis is indicated as we do not have a strong appreciating history of chronic congestive heart failure. Echocardiogram is warranted. Treat as possible asthma exacerbation with initial steroids, but then will rapidly come off. Given his immunosuppression, will need to rely on inhaled corticosteroids. Bronchodilators continue. Patient is recommended for outpatient pulmonary function testing. Afterward, aggressive therapy is also indicated to maintain his strength as well to maintain appropriate vaccines. I thank you very much, Dr. Harman and Dr. Larkin, for allowing me the chance to participate in the care of Mr. Rodas. Do not hesitate to contact me if I can help in any way. Job#: [id number] LILIAN SORTO
[2017-05-10] MEDS: CEFTRIAXONE SOD 1 GM VIAL IV SCH (04:26)
[2017-05-10] MEDS ORDERED: SODIUM CHLORIDE 0.9% 250ML 250 ML ONE (04:48)
[2017-05-10] MEDS: DOXYCYCLINE 100MG/NS 100ML 100 ML IV SCH ×2 (05:00→17:14)
[2017-05-10] MEDS: FAMOTIDINE 20 MG/2 ML VIAL IV SCH ×2 (06:14→17:14)
[2017-05-10 06:50] LABS: HEMATOCRIT 30.4 % (38.2-49.6); HEMOGLOBIN 8.6 g/dL (14.0-18.0); LYMPHOCYTES # (AUTO) 100.2 (1.0-3.2); LYMPHOCYTES % 92.7 % (18.0-39.1); MEAN CORPUSCULAR HGB CONC 28.3 g/dL (31-35); MEAN CORPUSCULAR VOLUME 91.8 fL (81-99); MONOCYTES # (AUTO) 0.2 (0.2-0.8); MONOCYTES % 0.2 % (4.4-11.3); NEUTROPHILS # (AUTO) 7.5 (2.1-6.9); NEUTROPHILS % 6.9 % (38.7-80.0); PLATELET COUNT 250 x10e3/uL (140-360); RED BLOOD COUNT 3.31 x10e6/uL (4.3-5.7); RED CELL DISTRIBUTION WIDTH 16.8 % (11.7-14.4)
[2017-05-10 07:16] LABS: ALANINE AMINOTRANSFERASE 18 IU/L (0-55); ALBUMIN 3.1 g/dL (3.5-5.0); ALBUMIN/GLOBULIN RATIO 1.4 (0.8-2.0); ALKALINE PHOSPHATASE 97 IU/L (40-150); ANION GAP 14.7 mmol/L (8-16); BLOOD UREA NITROGEN 17 mg/dL (7-26); BUN/CREATININE RATIO 24 (6-25); CALCIUM 7.9 mg/dL (8.4-10.2); CARBON DIOXIDE 26 mmol/L (22-29); CHLORIDE 103 mmol/L (98-107); CREATININE, SERUM 0.72 mg/dL (0.72-1.25); EST GLOMERULAR FILTRATION RATE > 60 ML/MIN (60-); GLUCOSE 129 mg/dL (74-118); POTASSIUM 3.7 mmol/L (3.5-5.1); SODIUM 140 mmol/L (136-145)
[2017-05-10] MEDS: BUDESONIDE 0.5MG/2 ML NEB INH SCH ×2 (08:20→18:55)
[2017-05-10 08:58] LABS: LYMPHOCYTES % (MANUAL) 94 % (19-48); NEUTROPHILS % (MANUAL) 6 % (40-74)
[2017-05-10 09:00] LABS: PLATELET ESTIMATE ADEQUATE; PLATELET MORPHOLOGY COMMENT NORMAL; SMUDGE CELLS MODERATE
[2017-05-10 09:01] LABS: RBC MORPHOLOGY COMMENT ABNORMAL
[2017-05-10 09:02] LABS: ANISOCYTOSIS MODERATE; HYPOCHROMASIA SLIGHT; POIKILOCYTOSIS SLIGHT
--- NOTE | 2017-05-10 12:16 | Diagnostic Imaging Report ---
PROCEDURE:CHEST SINGLE (PORTABLE) TECHNIQUE:Portable upright AP chest INDICATION:Status post right thoracentesis COMPARISON:Patients [facility], DX, CHEST SINGLE (PORTABLE), 05/09/2017, 12:07. FINDINGS: See conclusion. CONCLUSION: 1. Interval resolution of right pleural effusion. No pneumothorax. 2. Unchanged pulmonary edema. Moderate left pleural effusion. 3. Stable cardiomediastinal silhouette, with cardiomegaly and central vascular enlargement. 4. Intact skeleton. Dictated by: Joselito Miguel M.D. on 05/10/2017 at 12:16 Electronically approved by: Joselito Miguel M.D. on 05/10/2017 at 12:16
--- NOTE | 2017-05-10 12:20 | Diagnostic Imaging Report ---
Ultrasound-guided Thoracentesis 05/10/2017 Pre-Procedure Diagnosis: Respiratory insufficiency; right pleural effusion Post-procedure Diagnosis:Respiratory insufficiency; right pleural effusion Education And Development Manager: Skip Miguel Dance Studio Manager: None Sedation: None. 1% lidocaine local anesthesia. Estimate blood loss: <5 mL Blood administered: None Complications: None Implants/Grafts: None Specimen: 1150 mL serous pleural fluid. Procedure: Informed consent was obtained and the patient positioned left decubitus in the ultrasound suite. A timeout was performed, followed by preliminary ultrasound of the chest. The back was prepped and draped in standard sterile fashion. Using real-time ultrasound guidance a 5-Dutch one-step centesis needle was advanced into the right thoracic cavity. An image was stored in the electronic medical record. 1150 mL serous fluid was aspirated. At the end of the procedure the catheter was removed and a sterile dressing applied. The patient tolerated the procedure well. No complications. Findings: Large volume right effusion. Impression: Successful ultrasound-guided right thoracentesis with removal of 1150 mL of fluid. Samples were submitted for evaluation if requested by the referring clinician. This report was generated with voice-recognition technology. Errors in electric knife operator can occur. Please interpret accordingly and contact a radiologist if there are any questions regarding the report. Signed by: Dr. Joselito Miguel M.D. on 05/10/2017 12:17 PM
--- NOTE | 2017-05-10 12:20 | Diagnostic Imaging Report ---
Ultrasound-guided Thoracentesis 05/10/2017 Pre-Procedure Diagnosis: Respiratory insufficiency; right pleural effusion Post-procedure Diagnosis:Respiratory insufficiency; right pleural effusion Pharmacy Clerk: Skip Miguel Electro Winning Operator: None Sedation: None. 1% lidocaine local anesthesia. Estimate blood loss: <5 mL Blood administered: None Complications: None Implants/Grafts: None Specimen: 1150 mL serous pleural fluid. Procedure: Informed consent was obtained and the patient positioned left decubitus in the ultrasound suite. A timeout was performed, followed by preliminary ultrasound of the chest. The back was prepped and draped in standard sterile fashion. Using real-time ultrasound guidance a 5-Barb[place] one-step centesis needle was advanced into the right thoracic cavity. An image was stored in the electronic medical record. 1150 mL serous fluid was aspirated. At the end of the procedure the catheter was removed and a sterile dressing applied. The patient tolerated the procedure well. No complications. Findings: Large volume right effusion. Impression: Successful ultrasound-guided right thoracentesis with removal of 1150 mL of fluid. Samples were submitted for evaluation if requested by the referring clinician. This report was generated with voice-recognition technology. Errors in hat cone inspector can occur. Please interpret accordingly and contact a radiologist if there are any questions regarding the report. Signed by: Dr. Joselito Miguel M.D. on 05/10/2017 12:17 PM
[2017-05-10 14:06] LABS: BODY FLUID APPEARANCE SL.CLOUDY; BODY FLUID COLOR YELLOW; BODY FLUID TYPE PLEURAL
[2017-05-10 14:19] LABS: RBC,BODY FLUID 287 cells/uL; WBC,BODY FLUID 32 cells/uL
[2017-05-10 16:57] LABS: EOSINOPHILS,BODY FLUID 2 %; LYMPHOCYTES,BODY FLUID 70 %; MONO/MACROPHG,BODY FLUID 1 %; NEUTROPHILS,BODY FLUID 27 %
[2017-05-10] MEDS: HYDROCODONE/APAP 10MG-325MG TAB PO PRN (17:00)
[2017-05-10] MEDS: TRAZODONE HCL 50 MG TAB PO SCH (20:29)
[2017-05-11] VITALS (8 sets, daily range): BP systolic 139–157; BP diastolic 77–88
[2017-05-11] MEDS: IPRATROPIUM BROMIDE 0.02% 2.5 ML NEB NEB SCH ×6 (02:00→23:00)
[2017-05-11] MEDS: CEFTRIAXONE SOD 1 GM VIAL IV SCH (03:53)
[2017-05-11] MEDS: DOXYCYCLINE 100MG/NS 100ML 100 ML IV SCH ×2 (03:53→14:48)
[2017-05-11] MEDS: HYDROCODONE/APAP 10MG-325MG TAB PO PRN ×4 (03:57→19:18)
[2017-05-11] MEDS: FAMOTIDINE 20 MG/2 ML VIAL IV SCH ×2 (05:26→17:00)
[2017-05-11 06:53] LABS: HEMATOCRIT 26.2 % (38.2-49.6); LYMPHOCYTES # (AUTO) 78.4 (1.0-3.2); LYMPHOCYTES % 93.4 % (18.0-39.1); MEAN CORPUSCULAR HEMOGLOBIN 26.1 pg (28-32); MONOCYTES # (AUTO) 0.1 (0.2-0.8); MONOCYTES % 0.2 % (4.4-11.3); NEUTROPHILS # (AUTO) 5.3 (2.1-6.9); NEUTROPHILS % 6.2 % (38.7-80.0); PLATELET COUNT 192 x10e3/uL (140-360); RED BLOOD COUNT 2.91 x10e6/uL (4.3-5.7); RED CELL DISTRIBUTION WIDTH 16.5 % (11.7-14.4)
[2017-05-11] MEDS: BUDESONIDE 0.5MG/2 ML NEB INH SCH ×2 (07:00→19:15)
[2017-05-11 07:02] LABS: HEMOGLOBIN 7.6 g/dL (14.0-18.0)
[2017-05-11 07:08] LABS: ANION GAP 10.8 mmol/L (8-16); BLOOD UREA NITROGEN 19 mg/dL (7-26); BUN/CREATININE RATIO 27 (6-25); CARBON DIOXIDE 29 mmol/L (22-29); CHLORIDE 101 mmol/L (98-107); CREATININE, SERUM 0.71 mg/dL (0.72-1.25); EST GLOMERULAR FILTRATION RATE > 60 ML/MIN (60-); GLUCOSE 122 mg/dL (74-118); POTASSIUM 3.8 mmol/L (3.5-5.1); SODIUM 137 mmol/L (136-145)
[2017-05-11 08:51] LABS: LYMPHOCYTES % (MANUAL) 89 % (19-48); NEUTROPHILS % (MANUAL) 11 % (40-74)
[2017-05-11 08:54] LABS: PLATELET ESTIMATE ADEQUATE; PLATELET MORPHOLOGY COMMENT NORMAL
[2017-05-11 08:56] LABS: RBC MORPHOLOGY COMMENT ABNORMAL
[2017-05-11 08:57] LABS: ANISOCYTOSIS MARKED; HYPOCHROMASIA SLIGHT; POIKILOCYTOSIS SLIGHT
[2017-05-11 09:04] LABS: SMUDGE CELLS MANY
[2017-05-11] MEDS ORDERED: POTASSIUM CHLORIDE 20 MEQ TAB CR PO STA (12:56)
[2017-05-11] MEDS: FUROSEMIDE INJ 10 MG/ML 4 ML VIAL IV SCH ×2 (13:36→21:38)
--- NOTE | 2017-05-11 15:11 | Progress Note ---
DATE: May 11, 2017 PULMONARY MEDICINE PROGRESS NOTE SUBJECTIVE: Mr. Rodas was seen and examined at bedside. He continues to have some intermittent cough. He was not able to mobilize very well as therapy has not come in yet. However, echocardiogram showed 20% to 25% LVEF with moderate mitral regurgitation. He was not known in the past to have heart issues. The patient furthermore on thoracentesis had 1.15 L removed from the right lung pleural space with total protein 1.3 and LDH pending. Currently, 99% oxygen saturation on 4 L per minute. REVIEW OF SYSTEMS: No headaches, no rash. PHYSICAL EXAMINATION VITAL SIGNS: Afebrile. Vital signs noted per electronic record. GENERAL: In no acute distress, alert and calm. HEENT: Normocephalic, atraumatic. NECK: Supple. Throat is midline. LUNGS: Bilateral air entry, a few rhonchi, decreased breath sounds at bases. CARDIOVASCULAR: S1, S2. No murmurs, rubs or gallops. ABDOMEN: Soft, nontender. EXTREMITIES: No clubbing. No cyanosis. There is 2+ edema. INTEGUMENT: No rash. No purpura. LABS: 84 white count, 26 hematocrit, 192 platelets, 2.8 potassium, 19 BUN, 0.7 creatinine. IMPRESSION AND PLAN 1. New diagnosis of congestive heart failure. 2. Pleural effusions under evaluation, but initial study suggests transudate. 3. Treat for possible pneumonia. 4. Chronic lymphocytic leukemia with presumptive immunosuppressed state. 5. Mild tachycardia at 110 beats per minute last recorded. Check another EKG. Primary doctor to assume care of what is expected to be heart problems now that more information is coming in. Start diuresis. Give potassium supplement. Will follow along closely. DVT prophylaxis will be continued. Job#: [id number]
[2017-05-11] MEDS ORDERED: ENOXAPARIN SOD INJ 40 MG/0.4 ML SYR SC SCH (17:00)
[2017-05-11] MEDS: TRAZODONE HCL 50 MG TAB PO SCH (21:38)
[2017-05-11] MEDS: HEPARIN SOD (PORCINE) 5,000 UNIT/ML VIAL SC SCH (21:38)
[2017-05-12] VITALS (7 sets, daily range): BP systolic 126–155; BP diastolic 67–85
[2017-05-12] MEDS: HYDROCODONE/APAP 10MG-325MG TAB PO PRN ×4 (00:46→17:02)
[2017-05-12] MEDS: IPRATROPIUM BROMIDE 0.02% 2.5 ML NEB NEB SCH ×5 (02:10→19:40)
[2017-05-12] MEDS: DOXYCYCLINE 100MG/NS 100ML 100 ML IV SCH (04:15)
[2017-05-12] MEDS: CEFTRIAXONE SOD 1 GM VIAL IV SCH (04:15)
[2017-05-12] MEDS: FAMOTIDINE 20 MG/2 ML VIAL IV SCH (05:51)
[2017-05-12 06:47] LABS: EOSINOPHILS # (AUTO) 0.1 (0.0-0.4); EOSINOPHILS % 0.1 % (0.0-6.0); LYMPHOCYTES # (AUTO) 87.4 (1.0-3.2); LYMPHOCYTES % 94.3 % (18.0-39.1); MEAN CORPUSCULAR HEMOGLOBIN 26.2 pg (28-32); MEAN CORPUSCULAR HGB CONC 29.4 g/dL (31-35); MEAN CORPUSCULAR VOLUME 89.4 fL (81-99); MONOCYTES # (AUTO) 0.2 (0.2-0.8); MONOCYTES % 0.2 % (4.4-11.3); NEUTROPHILS # (AUTO) 4.8 (2.1-6.9); NEUTROPHILS % 5.3 % (38.7-80.0); PLATELET COUNT 196 x10e3/uL (140-360); RED BLOOD COUNT 3.01 x10e6/uL (4.3-5.7); RED CELL DISTRIBUTION WIDTH 16.7 % (11.7-14.4)
[2017-05-12 06:55] LABS: HEMATOCRIT 26.9 % (38.2-49.6); HEMOGLOBIN 7.9 g/dL (14.0-18.0)
--- NOTE | 2017-05-12 06:56 | Diagnostic Imaging Report ---
CHEST SINGLE (PORTABLE), 05/12/2017 5:00 AM Technique: CHEST SINGLE (PORTABLE) Comparison: None available. Clinical history: CHF Findings: See Impression. Chronic appearing right humeral deformity. Impression: Diffuse bilateral opacities, favor edema with bibasilar atelectasis and moderate effusions. Cardiomediastinal silhouette is obscured. Signed by: Dr Kim Casas MD on 05/12/2017 6:53 AM
[2017-05-12] MEDS: BUDESONIDE 0.5MG/2 ML NEB INH SCH ×2 (07:00→19:40)
[2017-05-12 07:18] LABS: ALANINE AMINOTRANSFERASE 10 IU/L (0-55); ALBUMIN 2.8 g/dL (3.5-5.0); ALBUMIN/GLOBULIN RATIO 1.3 (0.8-2.0); ALKALINE PHOSPHATASE 75 IU/L (40-150); ANION GAP 10.4 mmol/L (8-16); BLOOD UREA NITROGEN 16 mg/dL (7-26); BUN/CREATININE RATIO 22 (6-25); CALCIUM 7.8 mg/dL (8.4-10.2); CARBON DIOXIDE 34 mmol/L (22-29); CHLORIDE 96 mmol/L (98-107); CREATININE, SERUM 0.72 mg/dL (0.72-1.25); EST GLOMERULAR FILTRATION RATE > 60 ML/MIN (60-); GLUCOSE 118 mg/dL (74-118); MAGNESIUM 1.4 MG/DL (1.3-2.1); POTASSIUM 3.4 mmol/L (3.5-5.1); SODIUM 137 mmol/L (136-145)
[2017-05-12 08:03] LABS: LYMPHOCYTES % (MANUAL) 91 % (19-48); NEUTROPHILS % (MANUAL) 9 % (40-74)
[2017-05-12 08:04] LABS: ANISOCYTOSIS SLIGHT; PLATELET ESTIMATE ADEQUATE; RBC MORPHOLOGY COMMENT ABNORMAL
[2017-05-12 08:05] LABS: ELLIPTOCYTE, RBC SLIGHT
[2017-05-12 08:07] LABS: SMUDGE CELLS MANY
[2017-05-12] MEDS: FUROSEMIDE INJ 10 MG/ML 4 ML VIAL IV SCH (08:22)
[2017-05-12] MEDS: HEPARIN SOD (PORCINE) 5,000 UNIT/ML VIAL SC SCH ×2 (08:29→22:37)
[2017-05-12] MEDS ORDERED: POTASSIUM CHLORIDE 20 MEQ TAB CR PO STA (10:28)
[2017-05-12] MEDS ORDERED: MAGNESIUM SULF 1GRAM/DEXTROSE 100 ML IV ONE (10:30)
[2017-05-12] MEDS ORDERED: MAGNESIUM SULFATE 2GM/50ML 50 ML IV ONE (16:15)
[2017-05-12] MEDS ORDERED: METOLAZONE 5 MG TAB PO ONE (16:30)
[2017-05-12] MEDS ORDERED: FUROSEMIDE INJ 10 MG/ML 4 ML VIAL IV ONE (16:30)
[2017-05-12] MEDS ORDERED: POTASSIUM CHLORIDE 20 MEQ TAB CR PO ONE (16:40)
[2017-05-12] MEDS: CARVEDILOL 3.125 MG TAB PO SCH (16:52)
[2017-05-12] MEDS: SPIRONOLACTONE 25 MG TAB PO SCH (17:02)
--- NOTE | 2017-05-12 17:12 | Consultation ---
DATE OF CONSULTATION: May 12, 2017 CARDIOLOGY CONSULTATION REASON FOR CONSULTATION: Congestive heart failure. HISTORY OF PRESENT ILLNESS: Mr. Rodas is an 81-year-old, pleasant gentleman with a past medical history of chronic lymphocytic leukemia. He states he was diagnosed years ago and does not sound to be undergoing any chemotherapy or radiation therapy. He is followed by Dr. Mccormick for hem-onc purposes. His other history includes hypertension, hyperlipidemia, questionable COPD, and questionable cirrhosis. He reports that he was in his usual state of health up until earlier this year where he had a large mass removal at [facility], details of which are not very clear. He has reported several weeks of worsening lower extremity edema, development of new-onset orthopnea and PND. He denies any chest pain or discomfort. He denies any history of coronary artery disease. He reports that he has dyspnea at rest. He came in initially with hypoxic respiratory failure and was initially placed on high-flow oxygen and nonrebreather mask. He was noted to have severe enlarged bilateral pleural effusions and underwent right diagnostic and therapeutic thoracentesis, showing transudative fluid. He was evaluated with lower extremity venous duplex, which showed no signs of DVT for his edema. However, his echocardiogram revealed an EF of about 30% with moderate mitral regurgitation. Cardiology was consulted for further care and management. PAST MEDICAL HISTORY 1. Hypertension. 2. Hyperlipidemia. 3. Chronic lymphocytic leukemia diagnosed many years ago, followed by Dr. Mccormick. According to him, it does not sound like he has gotten therapy for it. PAST SURGICAL HISTORY: History of hernia with ex-lap scar. FAMILY HISTORY: Mother in her 80s due to "old age." Father in his 80s from a massive heart attack. SOCIAL HISTORY: He is a former smoker, quit years ago, apparently about 6-year smoking history. Denies any alcohol or illicit drug use. ALLERGIES: NO KNOWN DRUG ALLERGIES. HOME MEDICATIONS: Include: 1. Hydrochlorothiazide 25 mg daily. 2. [place] 10 per 325 mg q.6 h. p.r.n. 3. Nifedipine 30 mg daily. 4. Potassium chloride 10 mEq daily. 5. Zocor 40 mg nightly. 6. Trazodone 50 mg nightly. REVIEW OF SYSTEMS: Of note he is a very poor historian, and it is very difficult to ascertain history. GENERAL: Positive for fatigue, malaise, weight gain. HEENT: No headache, visual complaint, sore throat, stuffy nose. RESPIRATORY: Positive for nonproductive cough, worsening exertional dyspnea and orthopnea as noted above. CARDIOVASCULAR: As per HPI. Denies any palpitations, syncope, near syncope. GI: Positive for constipation and decreased appetite. No bright red blood per rectum, melena or hematemesis. : He does report dysuria and changes in his urinary stream MUSCULOSKELETAL: Positive for lower back pain and leg swelling. HEMATOLOGY: Positive for CLL and anemia. ENDOCRINE: Denies any diabetes, heat or cold intolerance. NEUROLOGIC: Denies any focal weakness, numbness, tingling, seizures, headache, TIA or stroke. OTHER: Remainder of the review of systems negative or otherwise mentioned. PHYSICAL EXAMINATION VITALS: Height 72 inches, weight 179 pounds, BMI 24.3. Temperature 96.3, pulse 91, respiratory rate 18, blood pressure 138/67, O2 sat 97% on 4 L nasal cannula. GENERAL: This is a disheveled, old-appearing gentleman who looks older than his stated age. He is currently in no apparent distress. HEENT: Normocephalic and atraumatic. Pupils are equal, round and reactive to light. The extraocular movements are intact. Oropharynx is clear. NECK: There are JVD and lymphadenopathy. Faint carotid bruit bilaterally. CARDIOVASCULAR: Regular rate and rhythm. Normal S1 and S2. A 2/6 systolic murmur at the right upper sternal border and 2/6 to 3/6 systolic murmur at the left lower sternal border. LUNGS: Poor air flow and absent lung sounds one-third up the lung oconnell bilaterally. There are some crackles. ABDOMEN: Skinny. Nontender and nondistended. There is an old ex-lap scar. Normoactive bowel sounds. BACK: No costovertebral angle tenderness. EXTREMITIES: Warm with 1 to 2+ bilateral radial pulses, 1+ femoral pulses and absent pedal pulses. There is 3+ edema in the bilateral lower extremities. NEUROLOGIC: Cranial nerves II through XII are intact. Strength is 4+/5 in all 4 extremities. He appears nonfocal. LABS: White count 92.7, hemoglobin 7.9, hematocrit 27, platelets 196. Sodium 137, potassium 3.4, chloride 97, bicarb 34, BUN 16, creatinine 0.72, glucose 118, calcium 7.8, magnesium 1.4, phosphorus 3.0, AST 15, ALT 10, alk phos 75, total protein 4.9, albumin 2.8. LDH was 298. INR was 1.23. UA has 0-5 white cells. Chest x-ray today shows diffuse bilateral opacities consistent with pulmonary effusions. Echocardiogram reviewed, showing EF of 30% with moderate mitral regurgitation. EKG reviewed, revealing normal sinus rhythm, normal axis, no ST-T-wave changes concerning for ischemia. DIAGNOSES 1. Volume overload, new onset. Diagnosis of acute systolic heart failure presenting with severe volume overload in the setting of hypoalbuminemia. 2. Chronic lymphocytic leukemia seems to me fairly advanced. 3. Severe leukocytosis. 4. Severe anemia of chronic disease. 5. Hypertension. 6. Hypercholesterolemia. 7. Bilateral lower extremity edema. 8. Former smoker. 9. Questionable cirrhosis as evidenced on noninvasive imaging. PLAN/RECOMMENDATIONS 1. Agree with Coreg and lisinopril therapy for heart failure management. 2. Aggressive potassium repletion. 3. Will give a dose of metolazone and Lasix for volume optimization. 4. Strict I's and O's and daily weights. 5. Telemetry monitoring. 6. Replete magnesium. 7. Subcutaneous DVT prophylaxis. 8. Will continue to follow this patient with you. Job#: [id number]
--- NOTE | 2017-05-12 19:55 | Progress Note ---
DATE: May 12, 2017 PULMONARY MEDICINE PROGRESS NOTE SUBJECTIVE: Patient noted with negative in and out balance, 1.1 liters in, 4.7 liters out. Chest x-ray, however, is worse with significant new effusions, moderate size, especially on the right. Patient feels about the same today. No bowel movements yet. Eating some. He did not walk in, he states he was not allowed to. He sat in chair. [place] is in place. REVIEW OF SYSTEMS: No bleeding, no rash. OBJECTIVE: VITAL SIGNS: Afebrile, vital signs noted per electronic record. GENERAL: In no acute distress, alert and calm. HEENT: Normocephalic, atraumatic. NECK: Supple. Throat midline. LUNGS: Bilateral air entry, decreased moderate breath sounds at the base. Few rhonchi. CARDIOVASCULAR: S1, S2. No murmurs, rubs, or gallops. ABDOMEN: Soft, nontender. EXTREMITIES: No clubbing, no cyanosis, there is no edema. INTEGUMENT: No rash, no purpura. LABS: 92 white count, 27 hematocrit, 196,000 platelets. 3.4 potassium, 34 bicarbonate, 16 BUN, 0.7 creatinine. Albumin is 2.8. IMPRESSION AND PLAN: 1. Fluid overload. 2. New diagnosis of cardiomyopathy, systolic. 3. Possible pneumonia. 4. Chronic lymphocytic anemia. 5. Anemia of chronic disease. 6. Hypertension. 7. Hyperlipidemia. 8. Hypoalbuminemia, 2.8. 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 Patient will continue to get diuretics. They have been augmented with metolazone today. Continue cardiac medications. Treatment for pneumonia will continue. Will continue to follow the pleural effusions and will reassess if they needed to be drained at some point in near future. Hopefully, we can catch up with medical management of the fluid overload. Further cardiac workup per cardiology. Job#: [id number]
[2017-05-12] MEDS: DOXYCYCLINE HYCLATE TABLET 100 MG TAB PO SCH (22:36)
[2017-05-12] MEDS: TRAZODONE HCL 50 MG TAB PO SCH (22:45)
[2017-05-13] VITALS: BP 138/85
[2017-05-13 04:00] VITALS: BP 141/66
[2017-05-13] MEDS: CEFTRIAXONE SOD 1 GM VIAL IV SCH (04:39)
[2017-05-13] MEDS: HYDROCODONE/APAP 10MG-325MG TAB PO PRN ×5 (04:39→23:38)
--- NOTE | 2017-05-13 06:32 | Diagnostic Imaging Report ---
CHEST SINGLE (PORTABLE), 05/13/2017 5:00 AM Technique: CHEST SINGLE (PORTABLE) Comparison: 05/10/2017 Clinical history: CHF Findings: See Impression. Impression: Diffuse bilateral opacities, favor edema with bibasilar atelectasis and moderate effusions. Cardiomediastinal silhouette is partially obscured, stable. Signed by: Dr Kim Casas MD on 05/13/2017 6:28 AM
[2017-05-13] MEDS: BUDESONIDE 0.5MG/2 ML NEB INH SCH ×2 (07:42→23:25)
[2017-05-13] MEDS: IPRATROPIUM BROMIDE 0.02% 2.5 ML NEB NEB SCH ×3 (07:43→23:25)
[2017-05-13 07:49] LABS: EOSINOPHILS # (AUTO) 0.2 (0.0-0.4); EOSINOPHILS % 0.1 % (0.0-6.0); HEMATOCRIT 31.5 % (38.2-49.6); LYMPHOCYTES # (AUTO) 110.2 (1.0-3.2); LYMPHOCYTES % 95.7 % (18.0-39.1); MEAN CORPUSCULAR HEMOGLOBIN 26.1 pg (28-32); MEAN CORPUSCULAR HGB CONC 29.2 g/dL (31-35); MEAN CORPUSCULAR VOLUME 89.2 fL (81-99); MONOCYTES # (AUTO) 0.1 (0.2-0.8); MONOCYTES % 0.1 % (4.4-11.3); NEUTROPHILS # (AUTO) 4.5 (2.1-6.9); PLATELET COUNT 217 x10e3/uL (140-360); RED BLOOD COUNT 3.53 x10e6/uL (4.3-5.7)
[2017-05-13 07:54] LABS: HEMOGLOBIN 9.2 g/dL (14.0-18.0)
[2017-05-13 08:00] VITALS: BP 144/72
[2017-05-13 08:18] LABS: ALANINE AMINOTRANSFERASE 13 IU/L (0-55); ALBUMIN 2.8 g/dL (3.5-5.0); ALBUMIN/GLOBULIN RATIO 1.1 (0.8-2.0); ALKALINE PHOSPHATASE 90 IU/L (40-150); ANION GAP 12.8 mmol/L (8-16); BLOOD UREA NITROGEN 16 mg/dL (7-26); BUN/CREATININE RATIO 21 (6-25); CALCIUM 8.9 mg/dL (8.4-10.2); CARBON DIOXIDE 34 mmol/L (22-29); CHLORIDE 92 mmol/L (98-107); CREATININE, SERUM 0.78 mg/dL (0.72-1.25); EST GLOMERULAR FILTRATION RATE > 60 ML/MIN (60-); GLUCOSE 107 mg/dL (74-118); MAGNESIUM 1.9 MG/DL (1.3-2.1); POTASSIUM 3.8 mmol/L (3.5-5.1); SODIUM 135 mmol/L (136-145)
[2017-05-13] MEDS: SPIRONOLACTONE 25 MG TAB PO SCH (09:24)
[2017-05-13] MEDS: DOXYCYCLINE HYCLATE TABLET 100 MG TAB PO SCH ×2 (09:25→21:00)
[2017-05-13] MEDS: CARVEDILOL 3.125 MG TAB PO SCH ×2 (09:25→17:00)
[2017-05-13] MEDS: HEPARIN SOD (PORCINE) 5,000 UNIT/ML VIAL SC SCH ×2 (09:26→21:00)
[2017-05-13] MEDS: LISINOPRIL 2.5 MG TAB PO SCH (09:27)
[2017-05-13 10:53] LABS: EOSINOPHILS % (MANUAL) 1 % (0-7); LYMPHOCYTES % (MANUAL) 92 % (19-48); MONOCYTES % (MANUAL) 3 % (3.4-9.0); NEUTROPHILS % (MANUAL) 4 % (40-74)
[2017-05-13 10:54] LABS: SMUDGE CELLS MANY
[2017-05-13 10:55] LABS: PLATELET ESTIMATE ADEQUATE; PLATELET MORPHOLOGY COMMENT NORMAL; RBC MORPHOLOGY COMMENT ABNORMAL
[2017-05-13 10:57] LABS: ANISOCYTOSIS MODERATE; HYPOCHROMASIA SLIGHT; POIKILOCYTOSIS SLIGHT
[2017-05-13 12:00] VITALS: BP 118/69
[2017-05-13] MEDS ORDERED: POTASSIUM CHLORIDE 20 MEQ TAB CR PO STA (12:27)
[2017-05-13] MEDS ORDERED: METOLAZONE 5 MG TAB PO ONE (12:30)
[2017-05-13] MEDS ORDERED: FUROSEMIDE INJ 10 MG/ML 4 ML VIAL IV ONE (12:30)
--- NOTE | 2017-05-13 13:25 | Progress Note ---
DATE: May 13, 2017 PULMONARY MEDICINE PROGRESS NOTE SUBJECTIVE: Mr. Rodas was seen and examined at bedside. He continues to have a lot of excess fluid. Chest x-ray showed moderate to large fluid overload. Good news, the x-ray is minimally better compared to yesterday. The patient also has electrolytes mostly within normal limits for now. He is starting to eat better. He is still not mobilizing very much. REVIEW OF SYSTEMS: No headache. No bleeding. OBJECTIVE VITAL SIGNS: Afebrile, vital signs noted per electronic record. GENERAL: In no acute distress, alert and calm. HEENT: Normocephalic, atraumatic. NECK: Supple. Throat midline. LUNGS: Bilateral air entry, a few rhonchi at the base. CARDIOVASCULAR: S1, S2. No murmurs, rubs, or gallops. ABDOMEN: Soft, nontender. EXTREMITIES: No clubbing, no cyanosis. There is 2+ edema. INTEGUMENT: No rash, no purpura. LABS: 3.8 potassium, 16 BUN, 0.8 creatinine, 115 white cells, 31 hematocrit, 217 platelets. IMPRESSION AND PLAN 1. Moderate to large pleural effusion, rapidly recurred. 2. Pulmonary edema. 3. New diagnosis of systolic cardiomyopathy. 4. Possible pneumonia. 5. Chronic lymphocytic anemia. Continue current treatment. The patient will have further evaluation of x-rays. Continue diuresing. Discussed with cardiology. They will look into giving more Lasix today. Recheck blood work tomorrow. Recheck chest x-ray tomorrow. Follow up I's and O's and kidney function. Will follow closely. Job#: [id number]
[2017-05-13 20:00] VITALS: BP 106/55
[2017-05-13] MEDS: FUROSEMIDE INJ 10 MG/ML 4 ML VIAL IV SCH (21:00)
[2017-05-13] MEDS: TRAZODONE HCL 50 MG TAB PO SCH (21:00)
[2017-05-14] VITALS (8 sets, daily range): BP systolic 91–144; BP diastolic 55–84
[2017-05-14] MEDS: CEFTRIAXONE SOD 1 GM VIAL IV SCH (03:28)
--- NOTE | 2017-05-14 06:37 | Diagnostic Imaging Report ---
CHEST SINGLE (PORTABLE), 05/14/2017 5:00 AM Technique: CHEST SINGLE (PORTABLE) Comparison: 05/13/2017 Clinical history: CHF Findings: See Impression Impression: Improved bilateral opacities, favor edema/atelectasis with small effusions. Stable visualized cardiomediastinal silhouette. Signed by: Dr Kim Casas MD on 05/14/2017 6:33 AM
[2017-05-14] MEDS: IPRATROPIUM BROMIDE 0.02% 2.5 ML NEB NEB SCH ×3 (07:15→23:30)
[2017-05-14] MEDS: BUDESONIDE 0.5MG/2 ML NEB INH SCH ×2 (07:15→23:30)
[2017-05-14 07:56] LABS: EOSINOPHILS # (AUTO) 0.3 (0.0-0.4); EOSINOPHILS % 0.3 % (0.0-6.0); HEMATOCRIT 31.6 % (38.2-49.6); HEMOGLOBIN 9.3 g/dL (14.0-18.0); LYMPHOCYTES # (AUTO) 112.8 (1.0-3.2); LYMPHOCYTES % 95.4 % (18.0-39.1); MEAN CORPUSCULAR HEMOGLOBIN 25.8 pg (28-32); MEAN CORPUSCULAR HGB CONC 29.4 g/dL (31-35); MEAN CORPUSCULAR VOLUME 87.5 fL (81-99); MONOCYTES # (AUTO) 0.3 (0.2-0.8); MONOCYTES % 0.2 % (4.4-11.3); NEUTROPHILS # (AUTO) 4.6 (2.1-6.9); NEUTROPHILS % 3.9 % (38.7-80.0); PLATELET COUNT 242 x10e3/uL (140-360); RED BLOOD COUNT 3.61 x10e6/uL (4.3-5.7); RED CELL DISTRIBUTION WIDTH 17.1 % (11.7-14.4)
[2017-05-14 08:20] LABS: ALANINE AMINOTRANSFERASE 9 IU/L (0-55); ALBUMIN 2.8 g/dL (3.5-5.0); ALBUMIN/GLOBULIN RATIO 1.2 (0.8-2.0); ALKALINE PHOSPHATASE 78 IU/L (40-150); ANION GAP 13.2 mmol/L (8-16); BLOOD UREA NITROGEN 22 mg/dL (7-26); BUN/CREATININE RATIO 25 (6-25); CALCIUM 9.1 mg/dL (8.4-10.2); CARBON DIOXIDE 34 mmol/L (22-29); CHLORIDE 88 mmol/L (98-107); CREATININE, SERUM 0.89 mg/dL (0.72-1.25); EST GLOMERULAR FILTRATION RATE > 60 ML/MIN (60-); GLUCOSE 104 mg/dL (74-118); MAGNESIUM 1.4 MG/DL (1.3-2.1); POTASSIUM 4.2 mmol/L (3.5-5.1); SODIUM 131 mmol/L (136-145)
[2017-05-14] MEDS: FUROSEMIDE INJ 10 MG/ML 4 ML VIAL IV SCH (10:09)
[2017-05-14] MEDS: SPIRONOLACTONE 25 MG TAB PO SCH (10:09)
[2017-05-14] MEDS: DOXYCYCLINE HYCLATE TABLET 100 MG TAB PO SCH ×2 (10:10→20:35)
[2017-05-14] MEDS: LISINOPRIL 2.5 MG TAB PO SCH (10:10)
[2017-05-14] MEDS: CARVEDILOL 3.125 MG TAB PO SCH ×2 (10:10→17:12)
[2017-05-14] MEDS: HEPARIN SOD (PORCINE) 5,000 UNIT/ML VIAL SC SCH ×2 (10:11→20:35)
[2017-05-14] MEDS: HYDROCODONE/APAP 10MG-325MG TAB PO PRN ×3 (10:19→19:33)
[2017-05-14 10:45] LABS: LYMPHOCYTES % (MANUAL) 86 % (19-48); MONOCYTES % (MANUAL) 3 % (3.4-9.0); NEUTROPHILS % (MANUAL) 11 % (40-74)
[2017-05-14 10:46] LABS: PLATELET ESTIMATE ADEQUATE; PLATELET MORPHOLOGY COMMENT NORMAL; RBC MORPHOLOGY COMMENT NORMAL; SMUDGE CELLS MODERATE
--- NOTE | 2017-05-14 13:26 | Progress Note ---
DATE: May 14, 2017 PULMONARY MEDICINE PROGRESS NOTE SUBJECTIVE: Mr. Rodas was seen and examined at bedside. He continues to have slow progress. Oxygen saturation 98%. He is on 4 L per minute by nasal cannula. Patient with 27 L in recorded and 1.4 L out recorded. Patient continues to have slowly improving chest x-ray with improving bilateral opacity and small to moderate pleural effusions present. However, despite the moderate size effusion, he transiently went on room air oxygen more for comfort reasons out without any big change seen. REVIEW OF SYSTEMS: No bleeding. No rash. OBJECTIVE VITALS: Afebrile. Vital signs noted per electronic record. GENERAL: In no acute distress. Alert and calm. HEENT: Normocephalic and atraumatic. NECK: Supple. Throat midline. LUNGS: Bilateral air entry. Decreased breath sounds at the bases. CARDIOVASCULAR: S1 and S2. No murmurs, rubs or gallops. ABDOMEN: Soft and nontender. EXTREMITIES: No clubbing. No cyanosis. There is still 2+ edema. INTEGUMENT: No rash. No purpura. LABS: Sodium 131, potassium 4.2, BUN 22, creatinine 0.89, bicarbonate 34. White count 118, hematocrit 32 and platelets 242,000. IMPRESSION AND PLAN 1. Pulmonary edema. 2. Concomitant moderate pleural effusion, recurrent. 3. Treat for pneumonia. 4. Systolic cardiomyopathy, new diagnosis. 5. Chronic lymphocytic leukemia. 6. Allergies and possible asthma. Continue current treatment at this time. Due to the high infection risk, we appropriately moved him to budesonide inhaled rather than systemic steroids. Continue the bronchodilators. Continue cardiac optimization, including diuretics and beta blockers. The patient is on increased Lasix right now. Will follow along electrolytes closely. Blood pressure transiently went down once to the 90s. For the most part, blood pressure is handling the diuretics. Will follow along closely and continue DVT prophylaxis with heparin subcutaneous treatment. Job#: [id number] DARIN
[2017-05-14] MEDS: TRAZODONE HCL 50 MG TAB PO SCH (20:35)
[2017-05-15] VITALS (8 sets, daily range): BP systolic 103–133; BP diastolic 54–63
[2017-05-15] MEDS: HYDROCODONE/APAP 10MG-325MG TAB PO PRN ×4 (00:01→20:47)
[2017-05-15] MEDS: CEFTRIAXONE SOD 1 GM VIAL IV SCH (03:54)
[2017-05-15] MEDS: BUDESONIDE 0.5MG/2 ML NEB INH SCH ×2 (06:52→19:20)
[2017-05-15] MEDS: IPRATROPIUM BROMIDE 0.02% 2.5 ML NEB NEB SCH ×3 (06:52→23:10)
--- NOTE | 2017-05-15 06:55 | Diagnostic Imaging Report ---
CHEST SINGLE (PORTABLE), 05/15/2017 5:00 AM Technique: CHEST SINGLE (PORTABLE) Comparison: Previous day Clinical history: CHF Findings: See Impression Impression: Mildly improved bibasilar opacities, which could reflect atelectasis and/or edema with small effusions. Stable visualized cardiomediastinal silhouette. Signed by: Dr Kim Casas MD on 05/15/2017 6:51 AM
[2017-05-15] MEDS: CARVEDILOL 3.125 MG TAB PO SCH ×2 (09:01→17:46)
[2017-05-15] MEDS: SPIRONOLACTONE 25 MG TAB PO SCH (09:01)
[2017-05-15] MEDS: LISINOPRIL 2.5 MG TAB PO SCH (09:01)
[2017-05-15] MEDS: HEPARIN SOD (PORCINE) 5,000 UNIT/ML VIAL SC SCH ×2 (09:02→21:00)
[2017-05-15] MEDS: DOXYCYCLINE HYCLATE TABLET 100 MG TAB PO SCH ×2 (09:02→20:47)
[2017-05-15 10:38] LABS: EOSINOPHILS # (AUTO) 0.3 (0.0-0.4); EOSINOPHILS % 0.3 % (0.0-6.0); HEMATOCRIT 30.6 % (38.2-49.6); HEMOGLOBIN 8.7 g/dL (14.0-18.0); LYMPHOCYTES # (AUTO) 114.5 (1.0-3.2); LYMPHOCYTES % 96.9 % (18.0-39.1); MEAN CORPUSCULAR HEMOGLOBIN 25.7 pg (28-32); MEAN CORPUSCULAR HGB CONC 28.4 g/dL (31-35); MEAN CORPUSCULAR VOLUME 90.5 fL (81-99); MONOCYTES # (AUTO) 0.2 (0.2-0.8); MONOCYTES % 0.1 % (4.4-11.3); NEUTROPHILS # (AUTO) 3.1 (2.1-6.9); NEUTROPHILS % 2.6 % (38.7-80.0); PLATELET COUNT 233 x10e3/uL (140-360); RED BLOOD COUNT 3.38 x10e6/uL (4.3-5.7); RED CELL DISTRIBUTION WIDTH 17.6 % (11.7-14.4)
[2017-05-15 11:01] LABS: PHOSPHORUS 4.2 MG/DL (2.3-4.7)
[2017-05-15 11:06] LABS: ALANINE AMINOTRANSFERASE 8 IU/L (0-55); ALBUMIN 2.8 g/dL (3.5-5.0); ALBUMIN/GLOBULIN RATIO 1.2 (0.8-2.0); ALKALINE PHOSPHATASE 81 IU/L (40-150); ANION GAP 13.7 mmol/L (8-16); BLOOD UREA NITROGEN 26 mg/dL (7-26); BUN/CREATININE RATIO 25 (6-25); CALCIUM 9.1 mg/dL (8.4-10.2); CARBON DIOXIDE 32 mmol/L (22-29); CHLORIDE 90 mmol/L (98-107); CREATININE, SERUM 1.04 mg/dL (0.72-1.25); EST GLOMERULAR FILTRATION RATE > 60 ML/MIN (60-); GLUCOSE 193 mg/dL (74-118); POTASSIUM 3.7 mmol/L (3.5-5.1); SODIUM 132 mmol/L (136-145)
[2017-05-15] MEDS ORDERED: POTASSIUM CHLORIDE 20 MEQ TAB CR PO SCH (14:03)
[2017-05-15 14:13] LABS: LYMPHOCYTES % (MANUAL) 96 % (19-48); MONOCYTES % (MANUAL) 1 % (3.4-9.0); NEUTROPHILS % (MANUAL) 3 % (40-74); PLATELET ESTIMATE ADEQUATE; PLATELET MORPHOLOGY COMMENT NORMAL; SMUDGE CELLS MODERATE
[2017-05-15 14:29] LABS: MAGNESIUM 1.6 MG/DL (1.3-2.1)
[2017-05-15] MEDS: FUROSEMIDE 40 MG TAB PO SCH (14:58)
--- NOTE | 2017-05-15 14:58 | Progress Note ---
DATE: May 15, 2017 PULMONARY MEDICINE PROGRESS NOTE SUBJECTIVE: Mr. Rodas was seen and examined at bedside. He continues to have slow improvement. Having bowel movements. He is eating better. He is on room air oxygen. [place] in place and he is diuresing. Recorded 0.9 L in and 3.1 L out recorded from yesterday. Patient continues on Lasix at this time. Creatinine remains stable mostly with 1 for now. Chest x-ray once again shows improvement in the lungs. REVIEW OF SYSTEMS: No bleeding. No double vision. OBJECTIVE VITALS: Afebrile. Vital signs noted per electronic record. GENERAL: In no acute distress. Alert and calm. HEENT: Normocephalic and atraumatic. NECK: Supple. Throat midline. LUNGS: Bilateral air entry. Decreased breath sounds at the base. Rare rhonchi. CARDIOVASCULAR: S1 and S2. No murmurs, rubs or gallops. ABDOMEN: Soft and nontender. EXTREMITIES: No clubbing. No cyanosis. There is decreasing 1-2+ edema. INTEGUMENT: No rash. No purpura. LABS: Potassium 3.7, BUN 26, creatinine 1. White count 118, hematocrit 31, and platelets 233,000. IMPRESSION AND PLAN 1. Pulmonary edema. 2. New diagnosis of systolic cardiomyopathy. 3. Possible pneumonia. 4. Pleural effusions. 5. History of chronic lymphocytic leukemia. At this time, will continue to get the patient a negative balance. Diuretics were decreased, but nevertheless, they are being continued. Will follow along closely. An additional amount of potassium was given today. Repeat chest x-ray in the morning. Repeat electrolytes in the morning. As long as the patient continues to diurese well, he will not need thoracentesis most likely. Will follow along closely. Job#: [id number] DARIN
[2017-05-15] MEDS: TRAZODONE HCL 50 MG TAB PO SCH (20:47)
[2017-05-16] VITALS: BP_SYST 102; BP_SYST 133; BP_DIAS 54; BP_DIAS 58
[2017-05-16 04:00] VITALS: BP 123/60
[2017-05-16] MEDS: CEFTRIAXONE SOD 1 GM VIAL IV SCH (04:50)
--- NOTE | 2017-05-16 06:24 | Diagnostic Imaging Report ---
CHEST SINGLE (PORTABLE), 05/16/2017 5:00 AM Technique: CHEST SINGLE (PORTABLE) Comparison: Previous day Clinical history: CHF Findings: See Impression Impression: Mildly improved bibasilar opacities, likely atelectasis with small effusions. Stable visualized cardiomediastinal silhouette. Signed by: Dr Kim Casas MD on 05/16/2017 6:20 AM
[2017-05-16] MEDS: IPRATROPIUM BROMIDE 0.02% 2.5 ML NEB NEB SCH ×2 (07:00→12:56)
[2017-05-16] MEDS: BUDESONIDE 0.5MG/2 ML NEB INH SCH (07:00)
[2017-05-16 07:10] VITALS: BP_SYST 107; BP_SYST 118; BP_DIAS 57; BP_DIAS 73
[2017-05-16 07:17] LABS: EOSINOPHILS # (AUTO) 0.3 (0.0-0.4); EOSINOPHILS % 0.3 % (0.0-6.0); HEMATOCRIT 32.9 % (38.2-49.6); HEMOGLOBIN 9.5 g/dL (14.0-18.0); LYMPHOCYTES # (AUTO) 123.3 (1.0-3.2); LYMPHOCYTES % 97.1 % (18.0-39.1); MEAN CORPUSCULAR HEMOGLOBIN 25.9 pg (28-32); MEAN CORPUSCULAR HGB CONC 28.9 g/dL (31-35); MEAN CORPUSCULAR VOLUME 89.6 fL (81-99); MONOCYTES # (AUTO) 0.2 (0.2-0.8); MONOCYTES % 0.1 % (4.4-11.3); NEUTROPHILS % 2.4 % (38.7-80.0); PLATELET COUNT 225 x10e3/uL (140-360); RED BLOOD COUNT 3.67 x10e6/uL (4.3-5.7); RED CELL DISTRIBUTION WIDTH 17.7 % (11.7-14.4)
[2017-05-16 07:33] LABS: BLOOD UREA NITROGEN 28 mg/dL (7-26); BUN/CREATININE RATIO 31 (6-25); CALCIUM 9.3 mg/dL (8.4-10.2); CARBON DIOXIDE 27 mmol/L (22-29); CHLORIDE 94 mmol/L (98-107); CREATININE, SERUM 0.91 mg/dL (0.72-1.25); EST GLOMERULAR FILTRATION RATE > 60 ML/MIN (60-); GLUCOSE 93 mg/dL (74-118); MAGNESIUM 1.7 MG/DL (1.3-2.1); SODIUM 132 mmol/L (136-145)
[2017-05-16 07:38] VITALS: BP 107/57
[2017-05-16] MEDS: CARVEDILOL 3.125 MG TAB PO SCH ×2 (09:25→17:41)
[2017-05-16] MEDS: SPIRONOLACTONE 25 MG TAB PO SCH (09:25)
[2017-05-16] MEDS: HYDROCODONE/APAP 10MG-325MG TAB PO PRN ×2 (09:25→13:29)
[2017-05-16] MEDS: FUROSEMIDE 40 MG TAB PO SCH (09:25)
[2017-05-16] MEDS: LISINOPRIL 2.5 MG TAB PO SCH (09:25)
[2017-05-16] MEDS: DOXYCYCLINE HYCLATE TABLET 100 MG TAB PO SCH (09:25)
[2017-05-16] MEDS: HEPARIN SOD (PORCINE) 5,000 UNIT/ML VIAL SC SCH (09:26)
[2017-05-16 09:41] LABS: EOSINOPHILS % (MANUAL) 1 % (0-7); LYMPHOCYTES % (MANUAL) 98 % (19-48); NEUTROPHILS % (MANUAL) 1 % (40-74)
[2017-05-16 09:42] LABS: ANISOCYTOSIS SLIGHT; HYPOCHROMASIA SLIGHT; PLATELET ESTIMATE ADEQUATE; PLATELET MORPHOLOGY COMMENT NORMAL; RBC MORPHOLOGY COMMENT NORMAL; SMUDGE CELLS MANY
[2017-05-16 11:35] VITALS: BP 118/73
--- NOTE | 2017-05-16 12:47 | Discharge Summary ---
PRIMARY CARE DOCTOR: Daron Chavira MD FINAL DIAGNOSIS: Acute systolic congestive heart failure. SECONDARY DIAGNOSES 1. Chronic lymphocytic leukemia. 2. Uncontrolled hypertension, resolved. 3. Chronic anemia, stable. 4. Bilateral leg swelling due to severely enlarged groin lymphadenopathy. No deep vein thrombosis. CONSULTANTS 1. Dr. Álvarez, pulmonology. 2. Dr. Fall, cardiology. PROCEDURES/STUDIES PERFORMED 1. Bilateral lower extremity venous Doppler was negative for DVT. 2. CT of the abdomen and pelvis. 3. Thoracentesis. HISTORY: Per [facility]. HOSPITAL COURSE: The patient was admitted. The patient was diuresed aggressively. Also, a right-sided thoracentesis was done, which revealed transudative pleural effusion. Echocardiogram showed EF of 20% to 25%. Currently, the patient is doing much better now. As far as his CLL, Dr. Isaacs was consulted. However, he was [place]. Dr. Damian Harman was covering. According to the nurse, Dr. Damian Harman saw the patient, and no recommendation was indicated for his severe leukocytosis of 100. However, I do not see a formal note in the chart. I discussed with Dr. Fall and Dr. Álvarez. We will go ahead and send him to [facility] for debility. He needs skilled physical therapy. CONDITION ON DISCHARGE: Stable. DISCHARGE MEDICATIONS: Please see medication reconciliation form. The patient was seen and examined today. It took 35 minutes total to discharge this patient. CHERYL HARMAN M.D. Job#: [id number] cc:DARON CHAVIRA MD
--- NOTE | 2017-05-16 12:55 | Progress Note ---
DATE: May 16, 2017 PULMONARY MEDICINE PROGRESS NOTE SUBJECTIVE: Mr. Rodas was seen and examined at bedside. He continues to have suggestion of steady improvement. The patient is without fever. Currently on 4 L of nasal cannula oxygen flow with 100% oxygen saturation. Limited ins and outs, 0.13 L in and 2.4 L out recorded. Bowel movement times 1. The patient was converted to oral Lasix yesterday. REVIEW OF SYSTEMS: No headache. No rash. OBJECTIVE VITALS: Afebrile. Vital signs noted per electronic record. GENERAL: In no acute distress. Alert, calm, pleasant. HEENT: Normocephalic and atraumatic. NECK: Supple. Throat midline. LUNGS: Bilateral air entry. Decreased breath sounds at the base. A few crackles. CARDIOVASCULAR: S1 and S2. No murmurs, rubs or gallops. ABDOMEN: Soft and nontender. EXTREMITIES: No clubbing, no cyanosis, 2+ edema. INTEGUMENT: No rash. No purpura. LABS: 127 white count, 33 hematocrit, 225 platelets, 4.0 potassium, 27 bicarbonate, 20 BUN, 0.9 creatinine, magnesium 1.7. BNP 351. Chest x-ray with mildly improved vascular opacities once again. IMPRESSION AND PLAN 1. Pneumonia. 2. Fluid overload. 3. Enlarging pleural effusions. 4. Systolic cardiomyopathy. At this time, we will continue current treatment. The patient still has need for more diuresis. He will be arranged for retirement facility so he can get rehab at the same time. We will follow along closely. Continue to follow up intermittent electrolytes. Treatment with cardiology regarding the cardiomyopathy that has been newly diagnosed. Continue bronchodilators. Will follow along closely. Job#: [id number]
[2017-05-16 15:37] VITALS: BP 116/57
== END 2017-05-16 18:48 | DRG 291 ==
LOC: ER 11:00 → ERHOLD 14:10 → MED/SURG3 17:58
PROVIDERS: ADMIT Internal Medicine; ATTEND Internal Medicine
PROC: 0W993ZX Drainage of Right Pleural Cavity, Percutaneous Approach, Diagnostic (ICD-10-PCS; principal; 2017-05-10)
DX: I11.0 Hypertensive heart disease with heart failure (principal); J18.9 Pneumonia, unspecified organism; J96.91 Respiratory failure, unspecified with hypoxia; J90 Pleural effusion, not elsewhere classified; K76.6 Portal hypertension; D80.1 Nonfamilial hypogammaglobulinemia; C91.10 Chronic lymphocytic leukemia of B-cell type not having achieved remission; K74.60 Unspecified cirrhosis of liver; I50.21 Acute systolic (congestive) heart failure; D63.0 Anemia in neoplastic disease; Z87.891 Personal history of nicotine dependence; E78.5 Hyperlipidemia, unspecified; Z66 Do not resuscitate; T78.49XA Other allergy, initial encounter; J45.909 Unspecified asthma, uncomplicated; E88.09 Other disorders of plasma-protein metabolism, not elsewhere classified; R59.1 Generalized enlarged lymph nodes; I34.0 Nonrheumatic mitral (valve) insufficiency
CPT/HCPCS: 32555; 36415; 51700; 71045; 74177; 74470; 80048; 80053; 81001; 82150; 82550; 82553; 82945; 83615; 83735; 83880; 84100; 84157; 84484; 85025; 85379; 85610; 85730; 87040; 87070; 87205; 88112; 88305; 89051; 93005; 93306; 93970; 94640; 96372; 96376; 97139; 99284; J0360; J0696; J1644; J1940; J2270; J2405; J3475; J7050; Q9967

== ENCOUNTER 2017-06-12 14:56 | Inpatient (IN) | payer MEDICARE ==
[~2017-06-12] VITALS: Ht 182.9 cm; Wt 69.4 kg
--- OUTSIDE RECORDS SUMMARY | 2017-06-12 14:58 | XMS REPORT | Clinical Summary ---
Author Author [facility] Address Unknown Phone Unavailable Care Team Providers Care Trans Router Name Role Phone PCP Unavailable Allergies No Known Allergies Current Medications Prescription Sig. Disp. Refills Start End Date Status Date famotidine (PEPCID) 20 MG Take 20 mg by mouth 2 Active tablet (two) times daily. gabapentin (NEURONTIN) Take 900 mg by mouth 3 Active 300 MG capsule (three) times daily . potassium chloride Take 10 mEq by mouth Active (KLOR-CON) 10 MEQ CR daily. tablet simvastatin (ZOCOR) 40 MG Take 40 mg by mouth Active tablet nightly. traZODone (DESYREL) 50 MG Take 50 mg by mouth Active tablet nightly. donepezil (ARICEPT) 10 MG Take 10 mg by mouth Active tablet nightly. hydroCHLOROthiazide Take 25 mg by mouth Active (HYDRODIURIL) 25 MG daily. tablet NIFEdipine (ADALAT CC) 90 Take 90 mg by mouth Active MG 24 hr tablet daily. DULoxetine (CYMBALTA) 20 Take 20 mg by mouth 2 Active MG capsule (two) times daily. triamcinolone (KENALOG) Apply topically 2 (two) Active 0.1 % topical cream times daily as needed to affected area. . HYDROcodone-acetaminophen Take 1 tablet by mouth 06/12/19 Discontin (NORCO 5-325) 5-325 mg every 6 (six) hours as 17 ued per tablet needed for Pain. enoxaparin (LOVENOX) 40 Inject 0.4 mLs (40 mg 0 06/12/19 01/24/20 Discontin mg/0.4 mL Syrg total) subcutaneously 17 17 ued daily. acetaminophen-codeine Take 1-2 tablets by mouth 30 tablet 0 06/12/19 06/22/19 (TYLENOL #3) 300-30 mg every 6 (six) hours as 17 17 per tablet needed for up to 10 days. Max Daily Amount: 8 tablets tamsulosin (FLOMAX) 0.4 Take 1 capsule (0.4 mg 0 06/12/19 01/24/20 Discontin mg Cp24 24 hr capsule total) by mouth daily. 17 17 ued acetaminophen-codeine Take 1-2 tablets by mouth 11/20/19 01/24/20 Discontin (TYLENOL #3) 300-30 mg every 6 (six) hours as 17 17 ued per tablet needed for Pain. acetaminophen-codeine Take 1 tablet by mouth 20 tablet 0 01/24/20 (TYLENOL #3) 300-30 mg every 4 (four) hours as 17 17 per tablet needed for up to 10 days. Max Daily Amount: 6 tablets Active Problems Problem Noted Date Incarcerated left inguinal hernia 06/06/2016 CLL (chronic lymphocytic leukemia) ([facility]) 01/01/2015 Bronchiectasis ([facility]) 01/01/2015 COPD (chronic obstructive pulmonary disease) ([facility]) 01/01/2015 HLD (hyperlipidemia) 01/01/2015 HTN (hypertension) 01/01/2015 Weight loss, abnormal 01/01/2015 Peripheral neuropathy 01/01/2015 PVD (peripheral vascular disease) ([facility]) 01/01/2015 Spinal stenosis 01/01/2015 Fever 01/01/2015 Abscess of groin, left 01/01/2015 Encounters Date Type Specialty Care Team Description 01/23/2017 Emergency Emergency Medicine Eduardo Peraza MD Fall, initial encounter (Primary Dx);Injury of head, initial encounter;Injury of right hand, initial encounter;Injury of left knee, initial encounter;Injury of right hip, initial encounter;CLL (chronic lymphocytic leukemia) ([facility]) 06/22/2016 Orders Only Mable Styles 06/06/2016 [facility] General Internal Medicine Renny Back Incarcerated left - Encounter MD Tonny inguinal hernia (Primary 06/11/2016 Jorge A Tejeda, DO Dx) Maura Allan MD after 06/11/2016 Social History Tobacco Use Types Packs/Day Years Used Date Former Smoker Comments: quit 50 years ago Alcohol Use Drinks/Week oz/Week Comments No Sex Assigned at Date Recorded Not on file Last Filed Vital Signs Vital Sign Reading Time Taken Blood Pressure 150/80 01/23/2017 3:30 PM [facility] [employer] Pulse 72 01/23/2017 3:30 PM [facility] [employer] Temperature 37 C (98.6 F) 01/23/2017 11:24 AM [facility] [employer] Respiratory Rate 18 01/23/2017 11:24 AM [facility] [employer] Oxygen Saturation 97% 01/23/2017 3:30 PM [facility] [employer] Inhaled Oxygen - - Concentration Weight - - Height - - Body Mass Index - - Plan of Treatment Not on file Implants Implanted Type Area Mixing Technician Device Expiration Model / Identifier Date Serial / Lot Mesh Otto Flat Sht 1x4in [id number] - Mesh Left: CR BARD:DAVOL [id number] 04/27/2019 [id number] / [id number] Groin [id number] / Implanted: Qty: 1 on 06/06/2016 by [id number] Contreras Renee MD Results * CT brain without IV contrast (01/23/2017 3:00 PM) Specimen Performing Laboratory [facility] Narrative FINAL REPORT CT head without contrast 01/23/2017 3:17 PM CLINICAL HISTORY: headache trauma TECHNIQUE: Axial noncontrast CT images through the [...] with MRI is recommended. Signed: Raffi Laguna MD Report Verified Date/Time:01/23/2017 15:19:20 Reading Location: [address] Neuro Reading Room Procedure Note Interface, External Ris In - 01/23/2017 3:21 PM [facility] [employer] FINAL REPORT CT head without contrast 01/23/2017 3:17 PM CLINICAL HISTORY: headache trauma TECHNIQUE: Axial noncontrast CT images through the [...] with MRI is recommended. Signed: Raffi Laguna MD Report Verified Date/Time: 01/23/2017 15:19:20 Reading Location: [facility] C013V Neuro Reading Room * XR hand 3 views right (01/23/2017 1:45 PM) Specimen Performing Laboratory [facility] Narrative FINAL REPORT INDICATION: Right hand pain after fall. COMPARISON: None. TECHNIQUE: Right hand radiograph three views. FINDINGS / IMPRESSION: No fracture or malalignment is demonstrated. In the soft tissues of the distal thumb there is a 2 mm metallic densities suspicious for foreign body. Joint space loss with mild osteophytosis is noted at the first CMC joint, STT joint, and long finger DIP joint. Signed: Geraldo Mac MD Report Verified Date/Time:01/23/2017 14:12:23 Reading Location: [facility] B1 C013X Ortho Consult Reading Room Procedure Note Interface, External Ris In - 01/23/2017 2:56 PM [facility] [employer] FINAL REPORT INDICATION: Right hand pain after fall. COMPARISON: None. TECHNIQUE: Right hand radiograph three views. FINDINGS / IMPRESSION: No fracture or malalignment is demonstrated. In the soft tissues of the distal thumb there is a 2 mm metallic densities suspicious for foreign body. Joint space loss with mild osteophytosis is noted at the first CMC joint, STT joint, and long finger DIP joint. Signed: Geraldo Mac MD Report Verified Date/Time: 01/23/2017 14:12:23 Reading Location: [facility] C013X Ortho Consult Reading Room * XR knee complete 4 views left (01/23/2017 1:07 PM) Specimen Performing Laboratory [facility] Narrative FINAL REPORT Left femur dated 01/23/2017 Clinical [...] fracture in the pelvis. Signed: Contreras Sahu MD Report Verified Date/Time:01/23/2017 14:01:34 Reading Location: [facility] C013Y CT Body Reading Room Procedure Note Interface, External Ris In - 01/23/2017 2:03 PM [facility] [employer] FINAL REPORT Left femur dated 01/23/2017 Clinical [...] fracture in the pelvis. Signed: Contreras Sahu MD Report Verified Date/Time: 01/23/2017 14:01:34 Reading Location: [facility] B1 C013Y CT Body Reading Room * XR femur 2 views right (01/23/2017 1:07 PM) Specimen Performing Laboratory GE RIS Narrative FINAL REPORT Left femur dated 01/23/2017 Clinical [...] fracture in the pelvis. Signed: Contreras Sahu MD Report Verified Date/Time:01/23/2017 14:01:34 Reading Location: [address] Body Reading Room Procedure Note Interface, External Ris In - 01/23/2017 2:03 PM [facility] [employer] FINAL REPORT Left femur dated 01/23/2017 Clinical [...] fracture in the pelvis. Signed: Contreras Sahu MD Report Verified Date/Time: 01/23/2017 14:01:34 Reading Location: [facility] B1 C013Y CT Body Reading Room * XR hand 3 views left (01/23/2017 1:07 PM) Specimen Performing Laboratory GE RIS Narrative FINAL REPORT Left femur dated 01/23/2017 Clinical [...] fracture in the pelvis. Signed: Contreras Sahu MD Report Verified Date/Time:01/23/2017 14:01:34 Reading Location: [facility] C013Y CT Body Reading Room Procedure Note Interface, External Ris In - 01/23/2017 2:03 PM [facility] [employer] FINAL REPORT Left femur dated 01/23/2017 Clinical [...] fracture in the pelvis. Signed: Contreras Sahu MD Report Verified Date/Time: 01/23/2017 14:01:34 Reading Location: [facility] C0[facility] CT Body Reading Room * XR pelvis 1 or 2 views (01/23/2017 1:07 PM) Specimen Performing Laboratory GE RIS Narrative FINAL REPORT Left femur dated 01/23/2017 Clinical [...] fracture in the pelvis. Signed: Contreras Sahu MD Report Verified Date/Time:01/23/2017 14:01:34 Reading Location: [facility] C013Y CT Body Reading Room Procedure Note Interface, External Ris In - 01/23/2017 2:03 PM [facility] [employer] FINAL REPORT Left femur dated 01/23/2017 Clinical [...] fracture in the pelvis. Signed: Contreras Sahu MD Report Verified Date/Time: 01/23/2017 14:01:34 Reading Location: [facility] B1 C013Y CT Body Reading Room * RHYTHM STRIP - SCAN (06/14/2016 2:50 PM) after 06/11/2016
--- OUTSIDE RECORDS SUMMARY | 2017-06-12 14:59 | XMS REPORT | Continuity of Care Document ---
Author Author [facility] Organization [facility] Address [address] [place] [address] Phone Unavailable Care Team Providers Care Sr. Director Name Role Phone NO, PCP PCP Unavailable Insurance Providers Guarantor Heather Rodas Address [address] [place] [address] [facility] Medicare Advantage Policy Number [id number] Subscriber's Name Heather Rodas R Relationship 18 Self / Same As Patient Group Name RETIRED Effective Date 10 Advance Directives Directive Response Recorded Date/Time Does the patient have an advance directive? No 05/09/17 11:42pm If yes, is advance directive on file with [facility]? No 05/09/17 11:42pm If not on file with [facility] will patient provide a copy? No 05/09/17 11:42pm Do you have a Directive to Physician? No 05/09/17 11:44am Do you have a Medical Power of Casing Machine Operator? No 05/09/17 11:44am Do you have an out of hospital Do Not Resuscitate Order? No 05/09/17 11:44am Do you have any special needs we should be aware of? No 05/09/17 11:44am Do you have a support person here with you today? Yes 05/09/17 11:44am Did patient receive Notice of Privacy Practices? Yes 05/09/17 11:44am Did patient receive patient rights and responsibilities? Yes 05/09/17 11:44am Problems Medical Problem Onset Date Status Abdominal pain Unknown Alteration consciousness 09/20/2014 Acute CLL (chronic lymphocytic leukemia) Unknown Fracture of hip, closed 09/20/2014 Acute Leukocytosis Unknown Peripheral edema Unknown Medications Current Home Medications Medication Dose Units Route Directions Days Qty Instructions Start Date Gabapentin 300 Mg Capsule 300 Mg Oral Three Times A Day 60 Cap Hydrochlorothiazide 25 Mg Tablet 25 Mg Oral Daily 30 Tab Hydrocodone Bit/Acetaminophen (Bucklin 10-325 Tablet) 1 Each Tablet Oral Every 6 Hours as needed for Neck Pain Nifedipine (Nifedipine Er) 30 Mg Tab.er.24 90 Mg Oral Daily Potassium Chloride 10 Meq Tab.er.prt 10 Meq Oral Daily Simvastatin 40 Mg Tablet 40 Mg Oral Daily 30 Tab Trazodone Hcl 50 Mg Tablet 50 Mg Oral Bedtime 30 Tab Social History Social History Problem Response Recorded Date/Time Onset Date Status Hx Psychiatric Problems No 05/09/2017 11:42pm Not Applicable Not Applicable Hx Eating Disorder No 05/09/2017 11:42pm Not Applicable Not Applicable Hx Substance Use Disorder No 05/09/2017 11:42pm Not Applicable Not Applicable Hx Depression No 05/09/2017 11:42pm Not Applicable Not Applicable Hx Alcohol Use No 05/09/2017 11:42pm Not Applicable Not Applicable Hx Substance Use Treatment No 05/09/2017 11:42pm Not Applicable Not Applicable Hx Physical Abuse No 05/09/2017 11:42pm Not Applicable Not Applicable Smoking Status Start Date Stop Date Unknown if ever smoked Hospital Discharge Instructions No hospital discharge instruction information available. Plan of Care Discharge Date 05/16/17 6:48pm Disposition TRANSFER NURSING HOME Prescriptions See Medication Section Functional Status Query Response Date Recorded FUNCTIONAL STATUS . May 10, 2017 10:46am Ambulation Ability Maximum Assistance May 09, 2017 11:45pm Toileting Ability Maximum Assistance May 16, 2017 9:42am Allergies, Adverse Reactions, Alerts No known allergies. Immunizations No immunization information available. Vital Signs Acute Vital Signs Vital Response Date/Time Temperature (Fahrenheit) 96.4 degrees F (97.6 - 99.5) 05/16/2017 3:37pm Pulse Pulse Rate (adult) 82 bpm (60 - 90) 05/16/2017 3:37pm Respiratory Rate 18 bpm (12 - 24) 05/16/2017 3:37pm Blood Pressure 116/57 mm Hg 05/16/2017 3:37pm Height 6 ft 0 in 05/09/2017 6:24pm Weight 179.19 lb 05/10/2017 12:00am Body Mass Index 24.3 kg/m^2 05/11/2017 12:00am Results Laboratory Results Test Name Result Units Flags Reference Collection Date/Time Result Date/ Time Comments White Blood Count 127.00 x10e3/uL *H 4.8-10.8 05/16/2017 6:29am 2017 7:37am Results called to KWAME ALVAREZ RN at 0734 on 05/16/17 by Eric Rice. CHARITY OK. This test has been rerun and double checked for accuracy. Red Blood Count 3.67 x10e6/uL L 4.3-5.7 05/16/2017 6:29am 05/16/2017 7: 37am Hemoglobin 9.5 g/dL L 14.0-18.0 05/16/2017 6:am 05/16/2017 7:37am Hematocrit 32.9 % L 38.2-49.6 05/16/2017 6:05/16/2017 7:37am Mean Corpuscular Volume 89.6 fL 81-99 05/16/2017 6:am 05/16/2017 7: 37am Mean Corpuscular Hemoglobin 25.9 pg L 28-32 05/16/2017 6:am 2017 7:37am Mean Corpuscular Hemoglobin Concent 28.9 g/dL L 31-35 05/16/2017 6:05/16/2017 7:37am Red Cell Distribution Width 17.7 % H 11.7-14.4 05/16/2017 6:am 2017 7:37am Platelet Count 225 x10e3/uL 140-360 05/16/2017 6:am 05/16/2017 7: 37am Neutrophils (%) (Auto) 2.4 % L 38.7-80.0 05/16/2017 6:am 05/16/2017 7: 37am Lymphocytes (%) (Auto) 97.1 % H 18.0-39.1 05/16/2017 6:05/16/2017 7 :37am Monocytes (%) (Auto) 0.1 % L 4.4-11.3 05/16/2017 6:05/16/2017 7: 37am Eosinophils (%) (Auto) 0.3 % 0.0-6.0 05/16/2017 6:05/16/2017 7: 37am Basophils (%) (Auto) 0.0 % 0.0-1.0 05/16/2017 6:05/16/2017 7:37am IM GRANULOCYTES % 0.1 % 0.0-1.0 05/16/2017 6:05/16/2017 7:37am Neutrophils # (Auto) 3.0 2.1-6.9 05/16/2017 6:05/16/2017 7:37am Lymphocytes # (Auto) 123.3 H 1.0-3.2 05/16/2017 6:05/16/2017 7: 37am Monocytes # (Auto) 0.2 0.2-0.8 05/16/2017 6:05/16/2017 7:37am Eosinophils # (Auto) 0.3 0.0-0.4 05/16/2017 6:05/16/2017 7:37am Basophils # (Auto) 0.0 0.0-0.1 05/16/2017 6:05/16/2017 7:37am Absolute Immature Granulocyte (auto 0.13 x10e3/uL H 0-0.1 05/16/2017 6: 05/16/2017 7:37am Differential Total Cells Counted 100 05/16/2017 6:05/16/2017 9 :43am Neutrophils % (Manual) 1 % L 40-74 05/16/2017 6:05/16/2017 9:43am Lymphocytes % (Manual) 98 % H 19-48 05/16/2017 6:05/16/2017 9:43am Monocytes % (Manual) 1 % L 3.4-9.0 05/15/2017 10:00am 05/15/2017 2:13pm Eosinophils % (Manual) 1 % 0-7 05/16/2017 6:29am 05/16/2017 9:43am Reactive Lymphocytes 3 05/09/2017 11:35am 05/09/2017 1:14pm Smudge Cells MANY 05/16/2017 6:29am 05/16/2017 9:43am Platelet Estimate ADEQUATE 05/16/2017 6:29am 05/16/2017 9:43am Platelet Morphology Comment NORMAL 05/16/2017 6:29am 05/16/2017 9: 43am Hypochromasia SLIGHT 05/16/2017 6:29am 05/16/2017 9:43am Poikilocytosis SLIGHT 05/13/2017 7:20am 05/13/2017 10:58am Anisocytosis SLIGHT 05/16/2017 6:29am 05/16/2017 9:43am Macrocytosis SLIGHT 05/12/2017 6:31am 05/12/2017 8:07am [place] Bodies FEW 05/09/2017 11:35am 05/09/2017 1:14pm Elliptocytes SLIGHT 05/12/2017 6:31am 05/12/2017 8:07am Red Cell Morphology Comment NORMAL 05/16/2017 6:29am 05/16/2017 9: 43am Prothrombin Time 14.6 seconds H 11.9-14.5 05/09/2017 11:35am 05/09/2017 12:05pm Prothromb Time International Ratio 1.23 05/09/2017 11:35am 2017 12:05pm Oral Anticoagulant Therapy INR Values: 1. Low Intensity Therapy 1.5 - 2.0 2. Moderate Intensity Therapy 2.0 - 3.0 3. High Intensity Therapy(1) 2.5 - 3.5 4. High Intensity Therapy(2) 3.0 - 4.0 5. Panic Value INR > 5.0 Activated Partial Thromboplast Time 26.7 seconds 23.8-35.5 05/09/2017 11 :35am 05/09/2017 12:07pm D-Dimer Quantitative (PE/DVT) 1.12 ug/mLFEU H 0.00-0.45 05/09/2017 11: 35am 05/09/2017 12:18pm Urine Color YELLOW YELLOW 05/09/2017 12:01pm 05/09/2017 12:17pm Urine Clarity CLEAR CLEAR 05/09/2017 12:01pm 05/09/2017 12:17pm Urine Specific Roberts 1.025 1.010-1.025 05/09/2017 12:01pm 2017 12:17pm Urine pH 5 5 - 7 05/09/2017 12:01pm 05/09/2017 12:17pm Urine Leukocyte Esterase NEGATIVE NEGATIVE 05/09/2017 12:01pm 2017 12:17pm Urine Nitrite NEGATIVE NEGATIVE 05/09/2017 12:01pm 05/09/2017 12: 17pm Urine Protein 1+ H NEGATIVE 05/09/2017 12:01pm 05/09/2017 12:17pm Urine Glucose (UA) NEGATIVE NEGATIVE 05/09/2017 12:01pm 05/09/2017 12 :17pm Urine Ketones NEGATIVE NEGATIVE 05/09/2017 12:01pm 05/09/2017 12: 17pm Urine Urobilinogen 4 mg/dL H 0.2 - 1 05/09/2017 12:01pm 05/09/2017 12: 17pm Urine Bilirubin NEGATIVE NEGATIVE 05/09/2017 12:01pm 05/09/2017 12: 17pm Urine Blood 2+ H NEGATIVE 05/09/2017 12:01pm 05/09/2017 12:17pm Urine WBC 0-5 /HPF 0-5 05/09/2017 12:01pm 05/09/2017 12:35pm Urine RBC 6-10 /HPF H 0-5 05/09/2017 12:01pm 05/09/2017 12:35pm Urine Bacteria RARE /HPF NONE 05/09/2017 12:01pm 05/09/2017 12:35pm Urine Epithelial Cells RARE /LPF NONE 05/09/2017 12:01pm 05/09/2017 12: 35pm Sodium Level 132 mmol/L L 136-145 05/16/2017 6:29am 05/16/2017 7:34am Potassium Level 4.0 mmol/L 3.5-5.1 05/16/2017 6:29am 05/16/2017 7:34am Chloride Level 94 mmol/L L 98-107 05/16/2017 6:29am 05/16/2017 7:34am Carbon Dioxide Level 27 mmol/L 22-29 05/16/2017 6:29am 05/16/2017 7: 34am Anion Gap 15.0 mmol/L 8-16 05/16/2017 6:05/16/2017 7:34am Blood Urea Nitrogen 28 mg/dL H 7-05/16/2017 6:05/16/2017 7:34am Creatinine 0.91 mg/dL 0.72-1.25 05/16/2017 6:2905/16/2017 7:34am BUN/Creatinine Ratio 31 H 6-05/16/2017 6:05/16/2017 7:34am Estimat Glomerular Filtration Rate > 60 ML/MIN 60- 05/16/2017 6: 7:34am Ranges were taken from the National Kidney Disease Education Program and the National Kidney Foundation literature. Reference ranges: 60 or greater: Normal 16-59 (for 3 consecutive months): Chronic kidney disease 15 or less: Kidney failure Glucose Level 93 mg/dL 74-118 05/16/2017 6:05/16/2017 7:34am Calcium Level 9.3 mg/dL 8.4-10.2 05/16/2017 6:05/16/2017 7:34am Phosphorus Level 4.2 MG/DL 2.3-4.7 05/15/2017 10:00am 05/15/2017 11: 06am Magnesium Level 1.7 MG/DL 1.3-2.1 05/16/2017 6:05/16/2017 7:34am Total Bilirubin 0.4 mg/dL 0.2-1.2 05/15/2017 10:00am 05/15/2017 11: 08am Aspartate Amino Transf (AST/SGOT) 11 IU/L 5-34 05/15/2017 10:0005/15 11:08am Alanine Aminotransferase (ALT/SGPT) 8 IU/L 0-55 05/15/2017 10:00am 11:08am Lactate Dehydrogenase 298 IU/L H 125-220 05/10/2017 6:27am 05/10/2017 11 :14am Total Protein 5.2 g/dL L 6.5-8.1 05/15/2017 10:00am 05/15/2017 11:08am Albumin 2.8 g/dL L 3.5-5.0 05/15/2017 10:00am 05/15/2017 11:08am Globulin 2.4 g/dL 2.3-3.5 05/15/2017 10:00am 05/15/2017 11:08am Albumin/Globulin Ratio 1.2 0.8-2.0 05/15/2017 10:00am 05/15/2017 11: 08am Alkaline Phosphatase 81 IU/L 40-150 05/15/2017 10:00am 05/15/2017 11: 08am B-Type Natriuretic Peptide 351.3 pg/mL H 0-100 05/15/2017 10:00am 2017 11:25am Creatine Kinase 110 IU/L 30-200 05/09/2017 11:35am 05/09/2017 12:16pm Creatine Kinase MB 2.80 ng/mL 0-5.0 05/09/2017 11:35am 05/09/2017 12: 22pm Troponin I 0.043 ng/mL 0-0.300 05/09/2017 11:35am 05/09/2017 12:22pm Body Fluid Type PLEURAL 05/10/2017 11:41am 05/10/2017 2:06pm Body Fluid Color YELLOW 05/10/2017 11:4105/10/2017 2:06pm Body Fluid Appearance SL.CLOUDY 05/10/2017 11:41am 05/10/2017 2: 06pm Body Fluid WBC 32 cells/uL 05/10/2017 11:41am 05/10/2017 2:19pm Body Fluid RBC 287 cells/uL 05/10/2017 11:41am 05/10/2017 2:19pm Body Fluid Neutrophils 27 % 05/10/2017 11:4105/10/2017 4:57pm Body Fluid Lymphocytes 70 % 05/10/2017 11:4105/10/2017 4:57pm Body Fluid Monocytes 1 % 05/10/2017 11:4105/10/2017 4:57pm Body Fluid Eosinophils 2 % 05/10/2017 11:41am 05/10/2017 4:57pm Body Fluid Total Cells Counted 100 05/10/2017 11:4105/10/2017 4: 57pm Body Fluid Glucose 148 mg/dL 05/10/2017 11:41am 05/12/2017 12:26pm Body Fluid Total Protein 1.3 g/dL 05/10/2017 11:41am 05/10/2017 2: 21pm Body Fluid Amylase 13 05/10/2017 11:41am 05/12/2017 12:26pm No reference range has been established for this specimen type. Microbiology Results Procedure Source Organism/Result Collection Date/Time Result Date/Time Result Status Blood Culture Blood NO GROWTH AFTER 5 DAYS, FINAL REPORT 05/09/2017 2:45pm 05/14/2017 3:01pm Final Procedures Procedure Status Date Provider(s) Computed tomography of abdomen and pelvis with contrast Active 05/09/17 MANDO FRASER NP Thoracentesis with ultrasound guidance Active 05/10/17 MOESS KOENIG MD Encounters Encounter Location Arrival/Admit Date Discharge/Depart Date Attending Provider Discharged Inpatient [facility] 05/09/17 2:10pm 05/16/17 6:48pm CHERYL COUCH MD
--- OUTSIDE RECORDS SUMMARY | 2017-06-12 15:00 | XMS REPORT | Clinical Summary ---
Author Author DAISY [facility] Address Unknown Phone Unavailable Care Team Providers Care Program Control Analyst Name Role Phone PCP Unavailable Allergies No [...] inguinal hernia 06/06/2016 CLL (chronic lymphocytic leukemia) ([facility]) 01/01/2015 Bronchiectasis ([facility]) 01/01/2015 COPD (chronic obstructive pulmonary disease) ([facility]) 01/01/2015 HLD (hyperlipidemia) 01/01/2015 HTN (hypertension) 01/01/2015 Weight loss, abnormal 01/01/2015 Peripheral neuropathy 01/01/2015 PVD (peripheral vascular disease) ([facility]) 01/01/2015 Spinal stenosis 01/01/2015 Fever 01/01/2015 Abscess of groin, left 01/01/2015 Encounters Date Type Specialty Care Team Description 01/23/2017 Emergency Emergency Medicine Eduardo Peraza MD Fall, initial encounter (Primary Dx);Injury of head, initial encounter;Injury of right hand, initial encounter;Injury of left knee, initial encounter;Injury of right hip, initial encounter;CLL (chronic lymphocytic leukemia) ([facility]) 06/22/2016 Orders Only Mable Styles 06/06/2016 [facility] General Internal Medicine Renny Back Incarcerated left [...] Taken Blood Pressure 150/80 01/23/2017 3:30 PM BOX HINGE AND LOCK ATTACHER Pulse 72 01/23/2017 3:30 PM BOX HINGE AND LOCK ATTACHER Temperature 37 C (98.6 F) 01/23/2017 11:24 AM BOX HINGE AND LOCK ATTACHER Respiratory Rate 18 01/23/2017 11:24 AM BOX HINGE AND LOCK ATTACHER Oxygen Saturation 97% 01/23/2017 3:30 PM BOX HINGE AND LOCK ATTACHER Inhaled Oxygen - - Concentration Weight - - Height - - Body Mass Index - - Plan of Treatment Not on file Implants Implanted Type Area Refrigerator Repair Technician Device Expiration Model / Identifier Date Serial / Lot Mesh Otto Flat Sht 1x4in [id number] - Mesh Left: CR BARD:DAVOL [id number] 04/27/2019 [id number] / [id number] Groin [id number] / Implanted: Qty: 1 on 06/06/2016 by [id number] Contreras Renee MD Results * CT brain [...] MD Report Verified Date/Time:01/23/2017 15:19:20 Reading Location: [address] Neuro Reading Room Procedure Note Interface, External Ris In - 01/23/2017 3:21 PM BOX HINGE AND LOCK ATTACHER FINAL REPORT CT head without contrast 01/23/2017 [...] Report Verified Date/Time: 01/23/2017 15:19:20 Reading Location: [facility] C013V Neuro Reading Room * XR hand [...] MD Report Verified Date/Time:01/23/2017 14:12:23 Reading Location: [facility] B1 C013X Ortho Consult Reading Room Procedure Note Interface, External Ris In - 01/23/2017 2:56 PM BOX HINGE AND LOCK ATTACHER FINAL REPORT INDICATION: Right hand pain after [...] Report Verified Date/Time: 01/23/2017 14:12:23 Reading Location: [facility] C013X Ortho Consult Reading Room * XR [...] MD Report Verified Date/Time:01/23/2017 14:01:34 Reading Location: [facility] C013Y CT Body Reading Room Procedure Note Interface, External Ris In - 01/23/2017 2:03 PM BOX HINGE AND LOCK ATTACHER FINAL REPORT Left femur dated 01/23/2017 Clinical [...] Report Verified Date/Time: 01/23/2017 14:01:34 Reading Location: [facility] B1 C013Y CT Body Reading Room * [...] MD Report Verified Date/Time:01/23/2017 14:01:34 Reading Location: [address] Body Reading Room Procedure Note Interface, External Ris In - 01/23/2017 2:03 PM BOX HINGE AND LOCK ATTACHER FINAL REPORT Left femur dated 01/23/2017 Clinical [...] Report Verified Date/Time: 01/23/2017 14:01:34 Reading Location: [facility] B1 C013Y CT Body Reading Room * [...] MD Report Verified Date/Time:01/23/2017 14:01:34 Reading Location: [facility] C013Y CT Body Reading Room Procedure Note Interface, External Ris In - 01/23/2017 2:03 PM BOX HINGE AND LOCK ATTACHER FINAL REPORT Left femur dated 01/23/2017 Clinical [...] Report Verified Date/Time: 01/23/2017 14:01:34 Reading Location: [facility] [place] * XR pelvis [...] MD Report Verified Date/Time:01/23/2017 14:01:34 Reading Location: [facility] C013Y CT Body Reading Room Procedure Note Interface, External Ris In - 01/23/2017 2:03 PM BOX HINGE AND LOCK ATTACHER FINAL REPORT Left femur dated 01/23/2017 Clinical [...] Report Verified Date/Time: 01/23/2017 14:01:34 Reading Location: [facility] B1 C013Y CT Body Reading Room * RHYTHM STRIP - SCAN (06/14/2016 2:50 PM) after 06/11/2016
[2017-06-12] MEDS ORDERED: CYMBALTA20 MG PO (15:28)
[2017-06-12] MEDS ORDERED: TRAZODONE HCL50 MG PO (15:28)
[2017-06-12] MEDS ORDERED: DONEPEZIL HCL10 MG PO (15:28)
[2017-06-12] MEDS ORDERED: FAMOTIDINE20 MG PO (15:28)
[2017-06-12] MEDS ORDERED: FUROSEMIDE INJ 10 MG/ML 4 ML VIAL IV SCH (15:30)
[2017-06-12] MEDS ORDERED: ASPIRIN 81 MG CHEW TAB PO ONE (15:30)
--- NOTE | 2017-06-12 15:57 | Diagnostic Imaging Report ---
EXAM: XR CHEST 1 VIEW DATE: 06/12/2017 3:17 PM INDICATION: Shortness of breath COMPARISON: 05/16/2017 FINDINGS: Lines and Tubes: None Heart and Mediastinum: Heart is slightly more prominent. Pulmonary arteries more prominent. Lungs and Pleura: Density overlying the right apex has the appearance of the skin fold. Small effusions and patchy basilar opacities more conspicuous. Bones and Soft Tissues: Right glenohumeral joint arthritis. IMPRESSION: 1. Mild increased conspicuity of cardiac silhouette, hilar regions, or opacities, and small effusion suggest volume overload. Follow-up recommended. Signed by: Dr. Simba Montgomery MD on 06/12/2017 3:54 PM
[2017-06-12 16:09] LABS: EOSINOPHILS # (AUTO) 0.1 (0.0-0.4); EOSINOPHILS % 0.1 % (0.0-6.0); HEMATOCRIT 29.8 % (38.2-49.6); HEMOGLOBIN 8.4 g/dL (14.0-18.0); LYMPHOCYTES % 96.7 % (18.0-39.1); MEAN CORPUSCULAR HEMOGLOBIN 25.1 pg (28-32); MEAN CORPUSCULAR HGB CONC 28.2 g/dL (31-35); MONOCYTES # (AUTO) 0.2 (0.2-0.8); MONOCYTES % 0.2 % (4.4-11.3); NEUTROPHILS # (AUTO) 3.5 (2.1-6.9); NEUTROPHILS % 2.9 % (38.7-80.0); PLATELET COUNT 275 x10e3/uL (140-360); RED BLOOD COUNT 3.35 x10e6/uL (4.3-5.7); RED CELL DISTRIBUTION WIDTH 18.4 % (11.7-14.4)
[2017-06-12 16:13] LABS: INR 1.31; PROTHROMBIN TIME 15.3 seconds (11.9-14.5)
[2017-06-12] MEDS ORDERED: ONDANSETRON HCL INJ 2 MG/ML VIAL IV STA (16:16)
[2017-06-12] MEDS ORDERED: MORPHINE SULFATE 2 MG/ML SYR IV SCH (16:16)
[2017-06-12 16:24] LABS: CLARITY,URINE CLEAR (CLEAR); COLOR,URINE YELLOW (YELLOW); KETONES,URINE 1+ (NEGATIVE); LEUKOCYTE ESTERASE ,URINE NEGATIVE (NEGATIVE); NITRITE,URINE NEGATIVE (NEGATIVE); PROTEIN,URINE DIPSTICK NEGATIVE (NEGATIVE)
[2017-06-12 16:25] LABS: BILIRUBIN,URINE NEGATIVE (NEGATIVE); URINE UROBILINOGEN 0.2 mg/dL (0.2 - 1)
[2017-06-12 16:28] LABS: ALANINE AMINOTRANSFERASE 16 IU/L (0-55); ALBUMIN 3.6 g/dL (3.5-5.0); ALBUMIN/GLOBULIN RATIO 1.4 (0.8-2.0); ALKALINE PHOSPHATASE 108 IU/L (40-150); ANION GAP 16.1 mmol/L (8-16); BLOOD UREA NITROGEN 18 mg/dL (7-26); BUN/CREATININE RATIO 22 (6-25); CARBON DIOXIDE 25 mmol/L (22-29); CHLORIDE 96 mmol/L (98-107); CREATINE KINASE 80 IU/L (30-200); CREATININE, SERUM 0.82 mg/dL (0.72-1.25); EST GLOMERULAR FILTRATION RATE > 60 ML/MIN (60-); GLUCOSE 113 mg/dL (74-118); POTASSIUM 4.1 mmol/L (3.5-5.1); SODIUM 133 mmol/L (136-145)
[2017-06-12 16:40] LABS: EPITHELIAL CELLS,URINE RARE /LPF; WBC,URINE (MAN) 0-5 /HPF (0-5)
[2017-06-12 16:44] LABS: LYMPHOCYTES % (MANUAL) 97 % (19-48); MONOCYTES % (MANUAL) 2 % (3.4-9.0); NEUTROPHILS % (MANUAL) 1 % (40-74)
[2017-06-12 16:45] LABS: SMUDGE CELLS MANY
[2017-06-12 16:47] LABS: PLATELET ESTIMATE ADEQUATE; PLATELET MORPHOLOGY COMMENT NORMAL; RBC MORPHOLOGY COMMENT ABNORMAL
[2017-06-12 16:50] LABS: ANISOCYTOSIS MARKED; HYPOCHROMASIA MARKED; POIKILOCYTOSIS SLIGHT
[2017-06-12] MEDS ORDERED: SODIUM CHLORIDE FLUSH 10 ML SYR INJ PRN (17:45)
--- OUTSIDE RECORDS SUMMARY | 2017-06-12 17:49 | XMS REPORT | Clinical Summary ---
Author Author DAISY [facility]St[facility] Address Unknown Phone Unavailable Care Team Providers Care Methods Engineer Name Role Phone PCP Unavailable Allergies No [...] inguinal hernia 06/06/2016 CLL (chronic lymphocytic leukemia) ([facility]) 01/01/2015 Bronchiectasis ([facility]) 01/01/2015 COPD (chronic obstructive pulmonary disease) ([facility]) 01/01/2015 HLD (hyperlipidemia) 01/01/2015 HTN (hypertension) 01/01/2015 Weight loss, abnormal 01/01/2015 Peripheral neuropathy 01/01/2015 PVD (peripheral vascular disease) ([facility]) 01/01/2015 Spinal stenosis 01/01/2015 Fever 01/01/2015 Abscess of groin, left 01/01/2015 Encounters Date Type Specialty Care Team Description 01/23/2017 Emergency Emergency Medicine Eduardo Peraza MD Fall, initial encounter (Primary Dx);Injury of head, initial encounter;Injury of right hand, initial encounter;Injury of left knee, initial encounter;Injury of right hip, initial encounter;CLL (chronic lymphocytic leukemia) ([facility]) 06/22/2016 Orders Only Mable Styles 06/06/2016 [facility] General Internal Medicine Renny Back Incarcerated left [...] Taken Blood Pressure 150/80 01/23/2017 3:30 PM DISC JOCKEY Pulse 72 01/23/2017 3:30 PM DISC JOCKEY Temperature 37 C (98.6 F) 01/23/2017 11:24 AM DISC JOCKEY Respiratory Rate 18 01/23/2017 11:24 AM DISC JOCKEY Oxygen Saturation 97% 01/23/2017 3:30 PM DISC JOCKEY Inhaled Oxygen - - Concentration Weight - - Height - - Body Mass Index - - Plan of Treatment Not on file Implants Implanted Type Area Sales Exhibitor Device Expiration Model / Identifier Date Serial / Lot Mesh Otto Flat Sht 1x4in [id number] - Mesh Left: CR BARD:DAVOL [id number] 04/27/2019 [id number] / [id number] Groin [id number] / Implanted: Qty: 1 on 06/06/2016 by [id number] Contreras Renee MD Results * CT brain [...] MD Report Verified Date/Time:01/23/2017 15:19:20 Reading Location: [address] Neuro Reading Room Procedure Note Interface, External Ris In - 01/23/2017 3:21 PM DISC JOCKEY FINAL REPORT CT head without contrast 01/23/2017 [...] Report Verified Date/Time: 01/23/2017 15:19:20 Reading Location: [facility] C013V Neuro Reading Room * XR [...] MD Report Verified Date/Time:01/23/2017 14:12:23 Reading Location: [facility] B1 C013X Ortho Consult Reading Room Procedure Note Interface, External Ris In - 01/23/2017 2:56 PM DISC JOCKEY FINAL REPORT INDICATION: Right hand pain after [...] Report Verified Date/Time: 01/23/2017 14:12:23 Reading Location: [facility] C013X Ortho Consult Reading Room * [...] MD Report Verified Date/Time:01/23/2017 14:01:34 Reading Location: [facility] C013Y CT Body Reading Room Procedure Note Interface, External Ris In - 01/23/2017 2:03 PM DISC JOCKEY FINAL REPORT Left femur dated 01/23/2017 Clinical [...] Report Verified Date/Time: 01/23/2017 14:01:34 Reading Location: [facility] B1 C013Y CT Body Reading Room * [...] MD Report Verified Date/Time:01/23/2017 14:01:34 Reading Location: [address] Body Reading Room Procedure Note Interface, External Ris In - 01/23/2017 2:03 PM DISC JOCKEY FINAL REPORT Left femur dated 01/23/2017 Clinical [...] Report Verified Date/Time: 01/23/2017 14:01:34 Reading Location: [facility] B1 C013Y CT Body Reading Room * [...] MD Report Verified Date/Time:01/23/2017 14:01:34 Reading Location: [facility] C013Y CT Body Reading Room Procedure Note Interface, External Ris In - 01/23/2017 2:03 PM DISC JOCKEY FINAL REPORT Left femur dated 01/23/2017 Clinical [...] Report Verified Date/Time: 01/23/2017 14:01:34 Reading Location: [facility] C0[facility] CT Body Reading Room * XR [...] MD Report Verified Date/Time:01/23/2017 14:01:34 Reading Location: [facility] C013Y CT Body Reading Room Procedure Note Interface, External Ris In - 01/23/2017 2:03 PM DISC JOCKEY FINAL REPORT Left femur dated 01/23/2017 Clinical [...] Report Verified Date/Time: 01/23/2017 14:01:34 Reading Location: [facility] B1 C013Y CT Body Reading Room * RHYTHM STRIP - SCAN (06/14/2016 2:50 PM) after 06/11/2016
[2017-06-12 20:00] VITALS: BP 153/84
[2017-06-12] MEDS: TRAZODONE HCL 50 MG TAB PO SCH (21:53)
[2017-06-12] MEDS: HYDROCODONE/APAP 10MG-325MG TAB PO PRN (21:54)
[2017-06-12] MEDS ORDERED: DONEPEZIL HCL 5 MG TAB PEG ONE (23:00)
[2017-06-12 23:18] VITALS: BP 153/84
[2017-06-13] VITALS (8 sets, daily range): BP systolic 101–135; BP diastolic 57–71
[2017-06-13 03:33] LABS: CREATINE KINASE MB 2.2 ng/mL (0-5.0)
[2017-06-13] MEDS: HYDROCODONE/APAP 10MG-325MG TAB PO PRN ×4 (04:00→17:00)
[2017-06-13 07:02] LABS: EOSINOPHILS # (AUTO) 0.2 (0.0-0.4); EOSINOPHILS % 0.2 % (0.0-6.0); HEMATOCRIT 25.9 % (38.2-49.6); HEMOGLOBIN 7.4 g/dL (14.0-18.0); LYMPHOCYTES # (AUTO) 86.8 (1.0-3.2); LYMPHOCYTES % 95.8 % (18.0-39.1); MEAN CORPUSCULAR HGB CONC 28.6 g/dL (31-35); MEAN CORPUSCULAR VOLUME 87.5 fL (81-99); MONOCYTES # (AUTO) 0.4 (0.2-0.8); MONOCYTES % 0.5 % (4.4-11.3); NEUTROPHILS # (AUTO) 3.1 (2.1-6.9); NEUTROPHILS % 3.4 % (38.7-80.0); PLATELET COUNT 240 x10e3/uL (140-360); RED BLOOD COUNT 2.96 x10e6/uL (4.3-5.7); RED CELL DISTRIBUTION WIDTH 18.3 % (11.7-14.4)
[2017-06-13 07:19] LABS: ANION GAP 10.5 mmol/L (8-16); BLOOD UREA NITROGEN 17 mg/dL (7-26); BUN/CREATININE RATIO 21 (6-25); CALCIUM 8.5 mg/dL (8.4-10.2); CARBON DIOXIDE 31 mmol/L (22-29); CHLORIDE 98 mmol/L (98-107); CREATININE, SERUM 0.82 mg/dL (0.72-1.25); EST GLOMERULAR FILTRATION RATE > 60 ML/MIN (60-); GLUCOSE 100 mg/dL (74-118); POTASSIUM 3.5 mmol/L (3.5-5.1); SODIUM 136 mmol/L (136-145)
[2017-06-13] MEDS: DONEPEZIL HCL 5 MG TAB PO SCH (08:11)
[2017-06-13] MEDS: GABAPENTIN 300 MG CAP PO SCH ×3 (08:11→20:23)
[2017-06-13] MEDS: FAMOTIDINE 20 MG TAB PO SCH ×2 (08:11→16:20)
[2017-06-13] MEDS: SIMVASTATIN 40 MG TAB PO SCH (08:12)
[2017-06-13] MEDS: FUROSEMIDE INJ 10 MG/ML 4 ML VIAL IV SCH ×2 (08:18→16:20)
[2017-06-13] MEDS ORDERED: HYDROCHLOROTHIAZIDE 25 MG TAB PO SCH (09:00)
[2017-06-13] MEDS ORDERED: DONEPEZIL HCL 5 MG TAB PEG SCH (09:00)
[2017-06-13] MEDS ORDERED: NIFEDIPINE CR 30 MG TAB PO SCH (09:00)
[2017-06-13] MEDS: DULOXETINE HCL 20 MG DELAYED RELEASE PO SCH ×2 (09:20→16:20)
[2017-06-13] MEDS: METOPROLOL SUCCINATE 25 MG TAB XL PO SCH ×2 (09:45→12:35)
[2017-06-13] MEDS ORDERED: LISINOPRIL 2.5 MG TAB PO SCH ×2 (09:45→17:00)
[2017-06-13] MEDS: LISINOPRIL 10 MG TAB PO SCH (16:02)
[2017-06-13] MEDS: TRAZODONE HCL 50 MG TAB PO SCH (20:23)
[2017-06-14] VITALS (8 sets, daily range): BP systolic 82–119; BP diastolic 47–57
[2017-06-14] MEDS: HYDROCODONE/APAP 10MG-325MG TAB PO PRN ×3 (05:00→21:25)
--- NOTE | 2017-06-14 05:54 | Diagnostic Imaging Report ---
CHEST SINGLE (PORTABLE), 06/14/2017 5:29 AM Technique: CHEST SINGLE (PORTABLE) Comparison: 06/12/2017 Clinical history: Congestive heart failure Findings: See Impression Impression: 1. Stable cardiomediastinal silhouette. 2. Persistent small left greater than right effusions with associated atelectasis. No overt edema. Signed by: Dr Kim Casas MD on 06/14/2017 5:51 AM
[2017-06-14 06:53] LABS: EOSINOPHILS # (AUTO) 0.2 (0.0-0.4); EOSINOPHILS % 0.2 % (0.0-6.0); HEMATOCRIT 25.6 % (38.2-49.6); HEMOGLOBIN 7.4 g/dL (14.0-18.0); LYMPHOCYTES # (AUTO) 87.4 (1.0-3.2); LYMPHOCYTES % 95.8 % (18.0-39.1); MEAN CORPUSCULAR HEMOGLOBIN 25.3 pg (28-32); MEAN CORPUSCULAR HGB CONC 28.9 g/dL (31-35); MEAN CORPUSCULAR VOLUME 87.7 fL (81-99); MONOCYTES # (AUTO) 1.1 (0.2-0.8); MONOCYTES % 1.2 % (4.4-11.3); NEUTROPHILS # (AUTO) 2.4 (2.1-6.9); NEUTROPHILS % 2.7 % (38.7-80.0); PLATELET COUNT 260 x10e3/uL (140-360); RED BLOOD COUNT 2.92 x10e6/uL (4.3-5.7); RED CELL DISTRIBUTION WIDTH 18.3 % (11.7-14.4)
[2017-06-14 07:15] LABS: ANION GAP 12.7 mmol/L (8-16); BLOOD UREA NITROGEN 16 mg/dL (7-26); BUN/CREATININE RATIO 18 (6-25); CALCIUM 8.5 mg/dL (8.4-10.2); CARBON DIOXIDE 32 mmol/L (22-29); CHLORIDE 95 mmol/L (98-107); CREATININE, SERUM 0.91 mg/dL (0.72-1.25); EST GLOMERULAR FILTRATION RATE > 60 ML/MIN (60-); GLUCOSE 106 mg/dL (74-118); IRON 25 ug/dL (65-175); MAGNESIUM 1.6 MG/DL (1.3-2.1); POTASSIUM 3.7 mmol/L (3.5-5.1); SODIUM 136 mmol/L (136-145)
[2017-06-14 08:50] LABS: ANISOCYTOSIS SLIGHT; HYPOCHROMASIA MODERATE; LYMPHOCYTES % (MANUAL) 83 % (19-48); MONOCYTES % (MANUAL) 1 % (3.4-9.0); NEUTROPHILS % (MANUAL) 16 % (40-74); PLATELET ESTIMATE ADEQUATE; POIKILOCYTOSIS SLIGHT
[2017-06-14 08:51] LABS: PLATELET MORPHOLOGY COMMENT FEW LARGE; RBC MORPHOLOGY COMMENT ABNORMAL
[2017-06-14] MEDS ORDERED: ASPIRIN 325 MG TAB PO SCH (09:00)
[2017-06-14] MEDS: SIMVASTATIN 40 MG TAB PO SCH (09:00)
[2017-06-14] MEDS: GABAPENTIN 300 MG CAP PO SCH ×3 (09:16→20:57)
[2017-06-14] MEDS: FUROSEMIDE INJ 10 MG/ML 4 ML VIAL IV SCH (09:16)
[2017-06-14] MEDS: DONEPEZIL HCL 5 MG TAB PO SCH (09:16)
[2017-06-14] MEDS: FAMOTIDINE 20 MG TAB PO SCH ×2 (09:16→17:00)
[2017-06-14] MEDS: ASPIRIN 81 MG ENTERIC COATED PO SCH (09:16)
[2017-06-14] MEDS: DULOXETINE HCL 20 MG DELAYED RELEASE PO SCH ×2 (09:16→17:00)
[2017-06-14] MEDS: LISINOPRIL 10 MG TAB PO SCH (09:22)
[2017-06-14] MEDS: METOPROLOL SUCCINATE 25 MG TAB XL PO SCH (09:31)
[2017-06-14] MEDS: TRAZODONE HCL 50 MG TAB PO SCH (20:57)
[2017-06-15] VITALS: BP 99/51
[2017-06-15 04:20] VITALS: BP 92/50
--- NOTE | 2017-06-15 06:23 | Diagnostic Imaging Report ---
CHEST SINGLE (PORTABLE), 06/15/2017 5:29 AM Technique: CHEST SINGLE (PORTABLE) Comparison: 06/14/2017 Clinical history: Congestive heart failure Findings: See Impression Impression: 1. Stable cardiomediastinal silhouette. 2. Unchanged vascular congestion with small effusions and associated atelectasis. Signed by: Dr Kim Casas MD on 06/15/2017 6:20 AM
[2017-06-15 06:53] LABS: EOSINOPHILS # (AUTO) 0.3 (0.0-0.4); EOSINOPHILS % 0.3 % (0.0-6.0); HEMATOCRIT 26.7 % (38.2-49.6); HEMOGLOBIN 7.5 g/dL (14.0-18.0); LYMPHOCYTES # (AUTO) 84.6 (1.0-3.2); MEAN CORPUSCULAR HEMOGLOBIN 25.2 pg (28-32); MEAN CORPUSCULAR HGB CONC 28.1 g/dL (31-35); MEAN CORPUSCULAR VOLUME 89.6 fL (81-99); MONOCYTES # (AUTO) 0.1 (0.2-0.8); MONOCYTES % 0.1 % (4.4-11.3); NEUTROPHILS # (AUTO) 2.2 (2.1-6.9); NEUTROPHILS % 2.5 % (38.7-80.0); PLATELET COUNT 227 x10e3/uL (140-360); RED BLOOD COUNT 2.98 x10e6/uL (4.3-5.7); RED CELL DISTRIBUTION WIDTH 18.5 % (11.7-14.4)
[2017-06-15 07:30] LABS: % IRON SATURATION 4 % (15-50); ANION GAP 10.2 mmol/L (8-16); BLOOD UREA NITROGEN 21 mg/dL (7-26); BUN/CREATININE RATIO 25 (6-25); CALCIUM 8.6 mg/dL (8.4-10.2); CARBON DIOXIDE 35 mmol/L (22-29); CHLORIDE 93 mmol/L (98-107); CREATININE, SERUM 0.84 mg/dL (0.72-1.25); EST GLOMERULAR FILTRATION RATE > 60 ML/MIN (60-); GLUCOSE 110 mg/dL (74-118); IRON 23 ug/dL (65-175); MAGNESIUM 1.8 MG/DL (1.3-2.1); POTASSIUM 3.2 mmol/L (3.5-5.1); SODIUM 135 mmol/L (136-145); TOTAL IRON BINDING CAPACITY 550 ug/dL (261-478); TRANSFERRIN 393 mg/dL (174-364)
[2017-06-15 08:57] VITALS: BP 111/76
[2017-06-15] MEDS ORDERED: FAMOTIDINE 20 MG TAB PO SCH (09:00)
[2017-06-15] MEDS ORDERED: LISINOPRIL 10 MG TAB PO SCH (09:00)
[2017-06-15] MEDS ORDERED: FUROSEMIDE INJ 10 MG/ML 4 ML VIAL IV SCH (09:00)
[2017-06-15] MEDS ORDERED: DULOXETINE HCL 20 MG DELAYED RELEASE PO SCH (09:00)
[2017-06-15] MEDS ORDERED: NEOMYCIN/POLYMYX/BACITR OINT 0.9 GM PKT ONE (09:47)
[2017-06-15] MEDS: GABAPENTIN 300 MG CAP PO SCH ×2 (09:55→15:59)
[2017-06-15] MEDS: ASPIRIN 81 MG ENTERIC COATED PO SCH (09:55)
[2017-06-15] MEDS: DONEPEZIL HCL 5 MG TAB PO SCH (09:55)
[2017-06-15] MEDS: METOPROLOL SUCCINATE 25 MG TAB XL PO SCH (09:55)
[2017-06-15] MEDS ORDERED: POTASSIUM CHLORIDE 20 MEQ TAB CR PO STA (10:53)
[2017-06-15] MEDS: HYDROCODONE/APAP 10MG-325MG TAB PO PRN (10:56)
[2017-06-15] MEDS ORDERED: POTASSIUM CHLORIDE 10 MEQ TABCR ONE (11:04)
[2017-06-15 11:07] VITALS: BP 111/76
--- NOTE | 2017-06-15 11:49 | Discharge Summary ---
PRIMARY CARE DOCTOR: Dr. Daron Chavira FINAL DIAGNOSIS: Acute systolic congestive heart failure with ejection fraction of 30%. SECONDARY DIAGNOSES 1. Chronic anemia with stable hemoglobin of 9.5. 2. Iron deficiency anemia. 3. Chronic lymphocytic leukemia. 4. Deconditioned, better. BRASSWIND INSTRUMENT REPAIRER: None. PROCEDURES/STUDIES PERFORMED: None. HISTORY: Per H and P. HOSPITAL COURSE: The patient was put on IV Lasix. He diuresed well. Now he is back to his baseline. His scrotal edema is improved as well. However, this is partially due to his inguinal lymphadenopathy due to his CLL. Given the fact that his EF is 30%, I went ahead and changed his home nifedipine XL and hydrochlorothiazide to Toprol-XL and lisinopril. The patient will be on low-dose p.o. Lasix at home as well. He will also be on a baby aspirin a day. I have notified his primary care doctor of this hospitalization. The patient was seen and examined today. It took 32 minutes total to discharge this patient. CONDITION ON DISCHARGE: Improved. DISCHARGE MEDICATIONS: Please see medication reconciliation form. CHERYL COUCH M.D. Job#: [id number] cc:DARON CHAVIRA MD
[2017-06-15 12:10] VITALS: BP 133/59
[2017-06-15] MEDS ORDERED: LISINOPRIL10 MG PO (12:45)
[2017-06-15] MEDS ORDERED: LASIX20 MG PO (12:45)
[2017-06-15] MEDS ORDERED: TOPROL XL25 MG PO (12:45)
[2017-06-15 13:19] LABS: BLAST CELLS % MANUAL 3; EOSINOPHILS % (MANUAL) 1 % (0-7); LYMPHOCYTES % (MANUAL) 92 % (19-48); NEUTROPHILS % (MANUAL) 4 % (40-74)
[2017-06-15 13:21] LABS: ANISOCYTOSIS SLIGHT; HYPOCHROMASIA MODERATE; PLATELET ESTIMATE ADEQUATE; PLATELET MORPHOLOGY COMMENT FEW GIANT; RBC MORPHOLOGY COMMENT ABNORMAL; STOMATOCYTES MODERATE
[2017-06-15 13:22] LABS: POIKILOCYTOSIS SLIGHT
[2017-06-15] MEDS ORDERED: SIMVASTATIN 40 MG TAB PO SCH (21:00)
== END 2017-06-15 16:35 | disposition home or self-care (01) | DRG 292 ==
LOC: ER 14:57 → ERHOLD 17:47 → MED/SURG 18:20
PROVIDERS: ADMIT Internal Medicine; ATTEND Internal Medicine
DX: I11.0 Hypertensive heart disease with heart failure (principal); E87.1 Hypo-osmolality and hyponatremia; C91.10 Chronic lymphocytic leukemia of B-cell type not having achieved remission; E86.0 Dehydration; D64.9 Anemia, unspecified; I50.23 Acute on chronic systolic (congestive) heart failure
CPT/HCPCS: 36415; 51700; 71045; 80048; 80053; 81001; 82550; 82553; 83540; 83735; 83880; 84466; 84484; 85025; 85610; 85730; 87086; 93005; 97139; 99284; J1940; J2270; J2405

== ENCOUNTER 2017-06-25 08:43 | Inpatient (IN) | payer MEDICARE ==
[~2017-06-25] VITALS: Ht 182.9 cm; Wt 68.5 kg
[~2017-06-25 08:43] MED LIST changes: +CYMBALTA20 MG PO; +DONEPEZIL HCL10 MG PO; +FAMOTIDINE20 MG PO; +LASIX20 MG PO; +LISINOPRIL10 MG PO; +TOPROL XL25 MG PO
--- OUTSIDE RECORDS SUMMARY | 2017-06-25 08:45 | XMS REPORT | Continuity of Care Document ---
Author Author [facility] Organization [facility] Address [address] [place] [address] Phone Unavailable Care Team Providers Care Corporate Services Manager Name Role Phone NO, PCP PCP Unavailable Insurance Providers Guarantor Heather Rodas R Address [address] [place] [address] [facility] Medicare Advantage Policy Number [id number] Subscriber's Name Heather Rodas R Relationship 18 Self / Same As Patient Group Name RETIRED Effective Date 10 Advance Directives Directive Response Recorded Date/Time Does the patient have an advance directive? No 06/12/17 11:11pm If yes, is advance directive on file with [facility]? No 06/12/17 11:11pm If not on file with [facility] will patient provide a copy? No 06/12/17 11:11pm Do you have a Directive to Physician? No 06/12/17 4:19pm Do you have a Medical Power of Recordak Operator? No 06/12/17 4:19pm Do you have an out of hospital Do Not Resuscitate Order? No 06/12/17 4:19pm Do you have any special needs we should be aware of? No 06/12/17 4:19pm Do you have a support person here with you today? Yes 06/12/17 4:19pm Did patient receive Notice of Privacy Practices? Yes 06/12/17 4:19pm Did patient receive patient rights and responsibilities? Yes 06/12/17 4:19pm Problems Medical Problem Onset Date Status Abdominal pain Unknown Alteration consciousness 09/20/2014 Acute CLL (chronic lymphocytic leukemia) Unknown Fracture of hip, closed 09/20/2014 Acute Leukocytosis Unknown Peripheral edema Unknown Medications Current Home Medications Medication Dose Units Route Directions Days Qty Instructions Start Date Donepezil Hcl 10 Mg Tablet 10 Mg Oral Daily Duloxetine Hcl (Cymbalta) 20 Mg Capcr 20 Mg Oral Twice A Day 30 Cap Famotidine 20 Mg Tab 20 Mg Oral Twice A Day 30 Tab Furosemide (Lasix) 20 Mg Tablet 20 Mg Oral Daily 30 Tab Gabapentin 300 Mg Capsule 300 Mg Oral Three Times A Day 60 Cap Hydrocodone Bit/Acetaminophen (Heiskell 10-325 Tablet) 1 Each Tablet 1 Tab Oral Every 4 Hours as needed for Neck Pain Lisinopril 10 Mg Tablet 5 Mg Oral Daily 30 Tab Metoprolol Succinate (Toprol Xl) 25 Mg Tab.er.24h 25 Mg Oral Daily 30 Tab Potassium Chloride 10 Meq Tab.er.prt 20 Meq Oral Daily Simvastatin 40 Mg Tablet 40 Mg Oral Daily 30 Tab Trazodone Hcl 50 Mg Tablet 50 Mg Oral Bedtime 30 Tab Past Home Medications Medication Directions Ordered Status Hydrochlorothiazide 25 Mg Tablet, 25 Mg Oral Daily Discontinued Nifedipine (Nifedipine Er) 30 Mg Tab.er.24, 90 Mg Oral Daily Discontinued Trazodone Hcl 50 Mg Tablet, 50 Mg Oral Bedtime Discontinued Social History Social History Problem Response Recorded Date/Time Onset Date Status Hx Psychiatric Problems No 06/12/2017 11:11pm Not Applicable Not Applicable Hx Eating Disorder No 06/12/2017 11:11pm Not Applicable Not Applicable Hx Substance Use Disorder No 06/12/2017 11:11pm Not Applicable Not Applicable Hx Depression No 06/12/2017 11:11pm Not Applicable Not Applicable Hx Alcohol Use No 06/12/2017 11:11pm Not Applicable Not Applicable Hx Substance Use Treatment No 06/12/2017 11:11pm Not Applicable Not Applicable Hx Physical Abuse No 06/12/2017 11:11pm Not Applicable Not Applicable Smoking Status Start Date Stop Date Never Smoker Hospital Discharge Instructions No hospital discharge instruction information available. Plan of Care Discharge Date 06/15/17 4:35pm Disposition HOME, SELF-CARE Instructions/Education Provided Congestive Heart Failure Prescriptions See Medication Section Additional Instructions/Education DIET TOLERATED ACTIVITY TOLERATED FOLLOW UP WITH DR ALEXANDRE (PRIMARY CARE PROVIDER) MONITOR WEIGHT AND BLOOD PRESSURE ABBIE CHAVES Functional Status Query Response Date Recorded FUNCTIONAL STATUS . June 13, 2017 4:07pm Assistive Devices None June 12, 2017 11:18pm Ambulation Ability Minimum Assistance June 12, 2017 11:18pm Toileting Ability Minimum Assistance June 14, 2017 7:01pm Allergies, Adverse Reactions, Alerts No known allergies. Immunizations No immunization information available. Vital Signs Acute Vital Signs Vital Response Date/Time Temperature (Fahrenheit) 97.6 degrees F (97.6 - 99.5) 06/15/2017 12:10pm Pulse Pulse Rate (adult) 75 bpm (60 - 90) 06/15/2017 1:05pm Respiratory Rate 18 bpm (12 - 24) 06/15/2017 1:05pm Blood Pressure 133/59 mm Hg 06/15/2017 12:10pm Height 6 ft 0 in 06/12/2017 3:10pm Weight 153 lb 06/12/2017 3:10pm Body Mass Index 20.8 kg/m^2 06/13/2017 6:14am Results Laboratory Results Test Name Result Units Flags Reference Collection Date/Time Result Date/ Time Comments Reactive Lymphocytes 3 05/09/2017 11:35am 05/09/2017 1:14pm Macrocytosis SLIGHT 05/12/2017 6:31am 05/12/2017 8:07am Mitchell-Alfarata Bodies FEW 05/09/2017 11:35am 05/09/2017 1:14pm Elliptocytes SLIGHT 05/12/2017 6:31am 05/12/2017 8:07am D-Dimer Quantitative (PE/DVT) 1.12 ug/mLFEU H 0.00-0.45 05/09/2017 11: 35am 05/09/2017 12:18pm Phosphorus Level 4.2 MG/DL 2.3-4.7 05/15/2017 10:00am 05/15/2017 11: 06am Lactate Dehydrogenase 298 IU/L H 125-220 05/10/2017 6:27am 05/10/2017 11 :14am Body Fluid Type PLEURAL 05/10/2017 11:41am 05/10/2017 2:06pm Body Fluid Color YELLOW 05/10/2017 11:41am 05/10/2017 2:06pm Body Fluid Appearance SL.CLOUDY 05/10/2017 11:41am 05/10/2017 2: 06pm Body Fluid WBC 32 cells/uL 05/10/2017 11:41am 05/10/2017 2:19pm Body Fluid RBC 287 cells/uL 05/10/2017 11:41am 05/10/2017 2:19pm Body Fluid Neutrophils 27 % 05/10/2017 11:41am 05/10/2017 4:57pm Body Fluid Lymphocytes 70 % 05/10/2017 11:4105/10/2017 4:57pm Body Fluid Monocytes 1 % 05/10/2017 11:4105/10/2017 4:57pm Body Fluid Eosinophils 2 % 05/10/2017 11:4105/10/2017 4:57pm Body Fluid Total Cells Counted 100 05/10/2017 11:41am 05/10/2017 4: 57pm Body Fluid Glucose 148 mg/dL 05/10/2017 11:41am 05/12/2017 12:26pm Body Fluid Total Protein 1.3 g/dL 05/10/2017 11:41am 05/10/2017 2: 21pm Body Fluid Lactate Dehydrogenase 53 IU/L 05/10/2017 11:41am 2017 10:57am No reference range has been established for this specimen type. Body Fluid Amylase 13 05/10/2017 11:4105/12/2017 12:26pm No reference range has been established for this specimen type. White Blood Count 87.23 x10e3/uL *H 4.8-10.8 06/15/2017 6:35am 2017 6:58am Results called to [Vaibhav Fischer RN] at 0656 on 06/15/17 by Uyen Wilkins. RB OK. Red Blood Count 2.98 x10e6/uL L 4.3-5.7 06/15/2017 6:35am 06/15/2017 6: 58am Hemoglobin 7.5 g/dL L 14.0-18.0 06/15/2017 6:35am 06/15/2017 6:58am Hematocrit 26.7 % L 38.2-49.6 06/15/2017 6:35am 06/15/2017 6:58am Mean Corpuscular Volume 89.6 fL 81-99 06/15/2017 6:35am 06/15/2017 6: 58am Mean Corpuscular Hemoglobin 25.2 pg L 28-32 06/15/2017 6:35am 2017 6:58am Mean Corpuscular Hemoglobin Concent 28.1 g/dL L 31-35 06/15/2017 6:35am 06/15/2017 6:58am Red Cell Distribution Width 18.5 % H 11.7-14.4 06/15/2017 6:35am 2017 6:58am Platelet Count 227 x10e3/uL 140-360 06/15/2017 6:35am 06/15/2017 6: 58am Neutrophils (%) (Auto) 2.5 % L 38.7-80.0 06/15/2017 6:35am 06/15/2017 6: 58am Lymphocytes (%) (Auto) 97.0 % H 18.0-39.1 06/15/2017 6:35am 06/15/2017 6 :58am Monocytes (%) (Auto) 0.1 % L 4.4-11.3 06/15/2017 6:35am 06/15/2017 6: 58am Eosinophils (%) (Auto) 0.3 % 0.0-6.0 06/15/2017 6:35am 06/15/2017 6: 58am Basophils (%) (Auto) 0.0 % 0.0-1.0 06/15/2017 6:35am 06/15/2017 6:58am IM GRANULOCYTES % 0.1 % 0.0-1.0 06/15/2017 6:35am 06/15/2017 6:58am Neutrophils # (Auto) 2.2 2.1-6.9 06/15/2017 6:35am 06/15/2017 6:58am Lymphocytes # (Auto) 84.6 H 1.0-3.2 06/15/2017 6:35am 06/15/2017 6: 58am Monocytes # (Auto) 0.1 L 0.2-0.8 06/15/2017 6:35am 06/15/2017 6:58am Eosinophils # (Auto) 0.3 0.0-0.4 06/15/2017 6:35am 06/15/2017 6:58am Basophils # (Auto) 0.0 0.0-0.1 06/15/2017 6:35am 06/15/2017 6:58am Absolute Immature Granulocyte (auto 0.07 x10e3/uL 0-0.1 06/15/2017 6: 35am 06/15/2017 6:58am Differential Total Cells Counted 100 06/15/2017 6:35am 06/15/2017 1 :22pm Neutrophils % (Manual) 4 % L 40-74 06/15/2017 6:35am 06/15/2017 1:22pm Lymphocytes % (Manual) 92 % H 19-48 06/15/2017 6:35am 06/15/2017 1:22pm Monocytes % (Manual) 1 % L 3.4-9.0 06/14/2017 6:20am 06/14/2017 8:51am Eosinophils % (Manual) 1 % 0-7 06/15/2017 6:35am 06/15/2017 1:22pm Blast Cells % 3 06/15/2017 6:35am 06/15/2017 1:22pm Smudge Cells MANY 06/12/2017 3:35pm 06/12/2017 4:51pm Platelet Estimate ADEQUATE 06/15/2017 6:35am 06/15/2017 1:22pm Platelet Morphology Comment FEW GIANT 06/15/2017 6:35am 06/15/2017 1:22pm Hypochromasia MODERATE 06/15/2017 6:35am 06/15/2017 1:22pm Poikilocytosis SLIGHT 06/15/2017 6:35am 06/15/2017 1:22pm Anisocytosis SLIGHT 06/15/2017 6:35am 06/15/2017 1:22pm Stomatocytes MODERATE 06/15/2017 6:35am 06/15/2017 1:22pm Red Cell Morphology Comment ABNORMAL 06/15/2017 6:35am 06/15/2017 1 :22pm Prothrombin Time 15.3 seconds H 11.9-14.5 06/12/2017 3:35pm 06/12/2017 4 :26pm Prothromb Time International Ratio 1.31 06/12/2017 3:35pm 2017 4:26pm Oral Anticoagulant Therapy INR Values: 1. Low Intensity Therapy 1.5 - 2.0 2. Moderate Intensity Therapy 2.0 - 3.0 3. High Intensity Therapy(1) 2.5 - 3.5 4. High Intensity Therapy(2) 3.0 - 4.0 5. Panic Value INR > 5.0 Activated Partial Thromboplast Time 31.0 seconds 23.8-35.5 06/12/2017 3: 35pm 06/12/2017 4:26pm Urine Color YELLOW YELLOW 06/12/2017 3:53pm 06/12/2017 4:25pm Urine Clarity CLEAR CLEAR 06/12/2017 3:53pm 06/12/2017 4:25pm Urine Specific [place] 1.020 1.010-1.025 06/12/2017 3:53pm 2017 4:25pm Urine pH 5 5 - 7 06/12/2017 3:53pm 06/12/2017 4:25pm Urine Leukocyte Esterase NEGATIVE NEGATIVE 06/12/2017 3:53pm 2017 4:25pm Urine Nitrite NEGATIVE NEGATIVE 06/12/2017 3:53pm 06/12/2017 4:25pm Urine Protein NEGATIVE NEGATIVE 06/12/2017 3:53pm 06/12/2017 4:25pm Urine Glucose (UA) NEGATIVE NEGATIVE 06/12/2017 3:53pm 06/12/2017 4: 25pm Urine Ketones 1+ H NEGATIVE 06/12/2017 3:53pm 06/12/2017 4:25pm Urine Urobilinogen 0.2 mg/dL 0.2 - 1 06/12/2017 3:53pm 06/12/2017 4: 25pm Urine Bilirubin NEGATIVE NEGATIVE 06/12/2017 3:53pm 06/12/2017 4: 25pm Urine Blood TRACE H NEGATIVE 06/12/2017 3:53pm 06/12/2017 4:25pm Urine WBC 0-5 /HPF 0-5 06/12/2017 3:53pm 06/12/2017 4:40pm Urine RBC 6-10 /HPF H 0-5 06/12/2017 3:53pm 06/12/2017 4:40pm Urine Bacteria NONE /HPF NONE 06/12/2017 3:53pm 06/12/2017 4:40pm Urine Epithelial Cells RARE /LPF NONE 06/12/2017 3:53pm 06/12/2017 4: 40pm Sodium Level 135 mmol/L L 136-145 06/15/2017 6:3506/15/2017 7:31am Potassium Level 3.2 mmol/L L 3.5-5.1 06/15/2017 6:35am 06/15/2017 7: 31am Chloride Level 93 mmol/L L 98-107 06/15/2017 6:35am 06/15/2017 7:31am Carbon Dioxide Level 35 mmol/L H 22-29 06/15/2017 6:35am 06/15/2017 7: 31am Anion Gap 10.2 mmol/L 8-06/15/2017 6:35am 06/15/2017 7:31am Blood Urea Nitrogen 21 mg/dL 7-06/15/2017 6:3506/15/2017 7:31am Creatinine 0.84 mg/dL 0.72-1.25 06/15/2017 6:3506/15/2017 7:31am BUN/Creatinine Ratio 25 6-06/15/2017 6:35am 06/15/2017 7:31am Estimat Glomerular Filtration Rate > 60 ML/MIN 60- 06/15/2017 6:35 7:31am Ranges were taken from the National Kidney Disease Education Program and the National Kid[employer] Foundation literature. Reference ranges: 60 or greater: Normal 16-59 (for 3 consecutive months): Chronic kidney disease 15 or less: Kidney failure Glucose Level 110 mg/dL 74-118 06/15/2017 6:3506/15/2017 7:31am Calcium Level 8.6 mg/dL 8.4-10.2 06/15/2017 6:3506/15/2017 7:31am Magnesium Level 1.8 MG/DL 1.3-2.1 06/15/2017 6:3506/15/2017 7:31am Iron Level 23 ug/dL L 65-175 06/15/2017 6:3506/15/2017 7:31am Total Iron Binding Capacity 550 ug/dL H 261-478 06/15/2017 6:35am 2017 7:31am Percent Iron Saturation 4 % L 15-50 06/15/2017 6:35am 06/15/2017 7:31am Transferrin 393 mg/dL H 174-364 06/15/2017 6:35am 06/15/2017 7:31am Total Bilirubin 1.0 mg/dL 0.2-1.2 06/12/2017 3:35pm 06/12/2017 4:29pm Aspartate Amino Transf (AST/SGOT) 21 IU/L 5-34 06/12/2017 3:35pm 2017 4:29pm Alanine Aminotransferase (ALT/SGPT) 16 IU/L 0-55 06/12/2017 3:35pm 4:29pm Total Protein 6.2 g/dL L 6.5-8.1 06/12/2017 3:35pm 06/12/2017 4:29pm Albumin 3.6 g/dL 3.5-5.0 06/12/2017 3:35pm 06/12/2017 4:29pm Globulin 2.6 g/dL 2.3-3.5 06/12/2017 3:35pm 06/12/2017 4:29pm Albumin/Globulin Ratio 1.4 0.8-2.0 06/12/2017 3:35pm 06/12/2017 4: 29pm Alkaline Phosphatase 108 IU/L 40-150 06/12/2017 3:35pm 06/12/2017 4: 29pm B-Type Natriuretic Peptide 610.6 pg/mL H 0-100 06/14/2017 6:20am 2017 7:53am Creatine Kinase 59 IU/L 30-200 06/13/2017 6:30am 06/13/2017 8:21am Creatine Kinase MB 2.00 ng/mL 0-5.0 06/13/2017 6:30am 06/13/2017 8: 30am Troponin I 0.040 ng/mL 0-0.300 06/13/2017 6:30am 06/13/2017 8:30am Microbiology Results Procedure Source Organism/Result Collection Date/Time Result Date/Time Result Status Blood Culture Blood NO GROWTH AFTER 5 DAYS, FINAL REPORT 05/09/2017 2:45pm 05/14/2017 3:01pm Final Procedures Procedure Status Date Provider(s) DRAINAGE OF RIGHT PLEURAL CAVITY, PERC APPROACH, DIAGN Completed 05/10/17 JABIER MARQUEZ MD Computed tomography of abdomen and pelvis with contrast Active 05/09/17 MANDO FRASER NP Thoracentesis with ultrasound guidance Active 05/10/17 MOSES KOENIG MD, ABIM Encounters Encounter Location Arrival/Admit Date Discharge/Depart Date Attending Provider Discharged Inpatient [facility] 06/12/17 5:47pm 06/15/17 4:35pm CHERYL COUCH MD Discharged Inpatient [facility] 05/09/17 2:10pm 05/16/17 6:48pm CHERYL COUCH MD
--- OUTSIDE RECORDS SUMMARY | 2017-06-25 08:45 | XMS REPORT | Clinical Summary ---
Author Author DAISY [facility] Address Unknown Phone Unavailable Care Team Providers Care Usability Specialist Name Role Phone PCP Unavailable Allergies No [...] daily as needed to affected area. . enoxaparin (LOVENOX) 40 Inject 0.4 mLs (40 mg 0 06/12/19 01/24/20 Discontin mg/0.4 mL Syrg total) subcutaneously 17 17 ued daily. tamsulosin (FLOMAX) 0.4 Take 1 capsule (0.4 [...] inguinal hernia 06/06/2016 CLL (chronic lymphocytic leukemia) ([facility]) 01/01/2015 Bronchiectasis ([facility]) 01/01/2015 COPD (chronic obstructive pulmonary disease) ([facility]) 01/01/2015 HLD (hyperlipidemia) 01/01/2015 HTN (hypertension) 01/01/2015 Weight loss, abnormal 01/01/2015 Peripheral neuropathy 01/01/2015 PVD (peripheral vascular disease) ([facility]) 01/01/2015 Spinal stenosis 01/01/2015 Fever 01/01/2015 Abscess of groin, left 01/01/2015 Encounters Date Type Specialty Care Team Description 01/23/2017 [facility], initial encounter (Primary Dx);Injury of head, initial encounter;Injury of right hand, initial encounter;Injury of left knee, initial encounter;Injury of right hip, initial encounter;CLL (chronic lymphocytic leukemia) ([facility]) after 06/24/2016 Social History Tobacco Use Types Packs/Day Years Used Date Former Smoker Comments: quit 50 years ago Alcohol Use Drinks/Week oz/Week Comments No Sex Assigned at Date Recorded Not on file Last Filed Vital Signs Vital Sign Reading Time Taken Blood Pressure 150/80 01/23/2017 3:30 PM PHP MAGENTO DEVELOPER Pulse 72 01/23/2017 3:30 PM PHP MAGENTO DEVELOPER Temperature 37 C (98.6 F) 01/23/2017 11:24 AM PHP MAGENTO DEVELOPER Respiratory Rate 18 01/23/2017 11:24 AM PHP MAGENTO DEVELOPER Oxygen Saturation 97% 01/23/2017 3:30 PM PHP MAGENTO DEVELOPER Inhaled Oxygen - - Concentration Weight - - Height - - Body Mass Index - - Plan of Treatment Not on file Implants Implanted Type Area Fleet Sales Associate Device Expiration Model / Identifier Date Serial / Lot Mesh Otto Flat Sht 1x4in [id number] - Mesh Left: CR BARD:DAVOL [id number] 04/27/2019 [id number] / [id number] Groin [id number] / Implanted: Qty: 1 on 06/06/2016 by [id number] Contreras Renee MD Results * CT brain [...] MD Report Verified Date/Time:01/23/2017 15:19:20 Reading Location: [address] Neuro Reading Room Procedure Note Interface, External Ris In - 01/23/2017 3:21 PM PHP MAGENTO DEVELOPER FINAL REPORT CT head without contrast 01/23/2017 [...] Report Verified Date/Time: 01/23/2017 15:19:20 Reading Location: [facility] C013V Neuro Reading Room * XR [...] MD Report Verified Date/Time:01/23/2017 14:12:23 Reading Location: [facility] C013X Ortho Consult Reading Room Procedure Note Interface, External Ris In - 01/23/2017 2:56 PM PHP MAGENTO DEVELOPER FINAL REPORT INDICATION: Right hand pain after [...] Report Verified Date/Time: 01/23/2017 14:12:23 Reading Location: [facility] C013X Ortho Consult Reading Room * [...] MD Report Verified Date/Time:01/23/2017 14:01:34 Reading Location: [address] Body Reading Room Procedure Note Interface, External Ris In - 01/23/2017 2:03 PM PHP MAGENTO DEVELOPER FINAL REPORT Left femur dated 01/23/2017 Clinical [...] Report Verified Date/Time: 01/23/2017 14:01:34 Reading Location: [facility] C013Y CT Body Reading Room * XR [...] MD Report Verified Date/Time:01/23/2017 14:01:34 Reading Location: [facility] C013Y CT Body Reading Room Procedure Note Interface, External Ris In - 01/23/2017 2:03 PM PHP MAGENTO DEVELOPER FINAL REPORT Left femur dated 01/23/2017 Clinical [...] Report Verified Date/Time: 01/23/2017 14:01:34 Reading Location: [facility] C0Y CT Body Reading Room * XR hand [...] MD Report Verified Date/Time:01/23/2017 14:01:34 Reading Location: [facility] C0Y CT Body Reading Room Procedure Note Interface, External Ris In - 01/23/2017 2:03 PM PHP MAGENTO DEVELOPER FINAL REPORT Left femur dated 01/23/2017 Clinical [...] Report Verified Date/Time: 01/23/2017 14:01:34 Reading Location: [facility] C013Y CT Body Reading Room * XR pelvis [...] MD Report Verified Date/Time:01/23/2017 14:01:34 Reading Location: [address] Body Reading Room Procedure Note Interface, External Ris In - 01/23/2017 2:03 PM PHP MAGENTO DEVELOPER FINAL REPORT Left femur dated 01/23/2017 Clinical [...] Report Verified Date/Time: 01/23/2017 14:01:34 Reading Location: [facility] C013Y CT Body Reading Room after 06/24/2016
[2017-06-25] MEDS ORDERED: ASPIR 8181 MG PO (09:04)
[2017-06-25 09:31] LABS: HEMATOCRIT 27.7 % (38.2-49.6); LYMPHOCYTES # (AUTO) 117.6 (1.0-3.2); LYMPHOCYTES % 94.2 % (18.0-39.1); MEAN CORPUSCULAR HEMOGLOBIN 24.9 pg (28-32); MEAN CORPUSCULAR HGB CONC 28.9 g/dL (31-35); MEAN CORPUSCULAR VOLUME 86.3 fL (81-99); MONOCYTES # (AUTO) 0.2 (0.2-0.8); MONOCYTES % 0.2 % (4.4-11.3); NEUTROPHILS # (AUTO) 6.7 (2.1-6.9); NEUTROPHILS % 5.4 % (38.7-80.0); PLATELET COUNT 215 x10e3/uL (140-360); RED BLOOD COUNT 3.21 x10e6/uL (4.3-5.7); RED CELL DISTRIBUTION WIDTH 19.8 % (11.7-14.4)
[2017-06-25 09:44] LABS: ALANINE AMINOTRANSFERASE 16 IU/L (0-55); ALBUMIN 3.1 g/dL (3.5-5.0); ALBUMIN/GLOBULIN RATIO 1.2 (0.8-2.0); ALKALINE PHOSPHATASE 103 IU/L (40-150); ANION GAP 14.7 mmol/L (8-16); BLOOD UREA NITROGEN 16 mg/dL (7-26); BUN/CREATININE RATIO 20 (6-25); CALCIUM 8.8 mg/dL (8.4-10.2); CARBON DIOXIDE 26 mmol/L (22-29); CHLORIDE 94 mmol/L (98-107); CREATINE KINASE 161 IU/L (30-200); CREATININE, SERUM 0.81 mg/dL (0.72-1.25); EST GLOMERULAR FILTRATION RATE > 60 ML/MIN (60-); GLUCOSE 121 mg/dL (74-118); MAGNESIUM 1.5 MG/DL (1.3-2.1); POTASSIUM 3.7 mmol/L (3.5-5.1); SODIUM 131 mmol/L (136-145)
[2017-06-25 09:57] LABS: INR 1.23; PROTHROMBIN TIME 14.6 seconds (11.9-14.5)
--- NOTE | 2017-06-25 09:57 | Diagnostic Imaging Report ---
EXAMINATION: Chest, CHEST SINGLE (PORTABLE) INDICATION: Chest pain COMPARISON: Chest portable 06/15/2017 FINDINGS: LINES: None. Heart: Normal cardiac silhouette. Vascular: The pulmonary vasculature is within normal limits. Atherosclerotic calcifications of the aortic arch. Mediastinum: No mediastinal, hilar, or axillary mass or lymphadenopathy. Lungs: No parenchymal mass. Bibasilar atelectasis. Pleura: Small left pleural effusion. No pneumothorax. Bones: No acute osseous abnormality. Degenerative changes of the thoracic spine. Soft tissues: Normal. Impression: Small left pleural effusion. Signed by: Dr. Edison Sigala M.D. on 06/25/2017 9:54 AM
[2017-06-25 09:58] LABS: PARTIAL THROMBOPLASTIN TIME 32.8 seconds (23.8-35.5)
[2017-06-25] MEDS ORDERED: FUROSEMIDE INJ 10 MG/ML 4 ML VIAL IV ONE (10:00)
[2017-06-25 10:23] LABS: MONOCYTES % (MANUAL) 1 % (3.4-9.0)
[2017-06-25 10:24] LABS: LYMPHOCYTES % (MANUAL) 88 % (19-48); NEUTROPHILS % (MANUAL) 5 % (40-74); PLATELET ESTIMATE ADEQUATE; SMUDGE CELLS 6
[2017-06-25 10:25] LABS: HYPOCHROMASIA SLIGHT; PLATELET MORPHOLOGY COMMENT NORMAL; RBC MORPHOLOGY COMMENT NORMAL
[2017-06-25] MEDS ORDERED: FAMOTIDINE 20 MG/2 ML VIAL IV SCH (11:00)
--- OUTSIDE RECORDS SUMMARY | 2017-06-25 11:12 | XMS REPORT | Clinical Summary ---
Author Author [facility]Y [facility] Address Unknown Phone Unavailable Care Team Providers Care Carpenter Assistant Name Role Phone PCP Unavailable Allergies No [...] inguinal hernia 06/06/2016 CLL (chronic lymphocytic leukemia) ([facility]) 01/01/2015 Bronchiectasis ([facility]) 01/01/2015 COPD (chronic obstructive pulmonary disease) ([facility]) 01/01/2015 HLD (hyperlipidemia) 01/01/2015 HTN (hypertension) 01/01/2015 Weight loss, abnormal 01/01/2015 Peripheral neuropathy 01/01/2015 PVD (peripheral vascular disease) ([facility]) 01/01/2015 Spinal stenosis 01/01/2015 Fever 01/01/2015 Abscess of groin, left 01/01/2015 Encounters Date Type Specialty Care Team Description 01/23/2017 [facility] Fall, initial encounter (Primary Dx);Injury of head, initial encounter;Injury of right hand, initial encounter;Injury of left knee, initial encounter;Injury of right hip, initial encounter;CLL (chronic lymphocytic leukemia) ([facility]) after 06/24/2016 Social History Tobacco Use Types Packs/Day Years Used Date Former Smoker Comments: quit 50 years ago Alcohol Use Drinks/Week oz/Week Comments No Sex Assigned at Date Recorded Not on file Last Filed Vital Signs Vital Sign Reading Time Taken Blood Pressure 150/80 01/23/2017 3:30 PM DIPLOMATIC COURIER Pulse 72 01/23/2017 3:30 PM DIPLOMATIC COURIER Temperature 37 C (98.6 F) 01/23/2017 11:24 AM DIPLOMATIC COURIER Respiratory Rate 18 01/23/2017 11:24 AM DIPLOMATIC COURIER Oxygen Saturation 97% 01/23/2017 3:30 PM DIPLOMATIC COURIER Inhaled Oxygen - - Concentration Weight - - Height - - Body Mass Index - - Plan of Treatment Not on file Implants Implanted Type Area Deicer Repairer Pneumatic Device Expiration Model / Identifier Date Serial / Lot Mesh Otto Flat Sht 1x4in [id number] - Mesh Left: CR BARD:DAVOL [id number] 04/27/2019 [id number] / [id number] Groin [id number] / Implanted: Qty: 1 on 06/06/2016 by [id number] Contreras Renee MD Results * CT brain [...] MD Report Verified Date/Time:01/23/2017 15:19:20 Reading Location: [address] Neuro Reading Room Procedure Note Interface, External Ris In - 01/23/2017 3:21 PM DIPLOMATIC COURIER FINAL REPORT CT head without contrast 01/23/2017 [...] Report Verified Date/Time: 01/23/2017 15:19:20 Reading Location: [facility] C013V Neuro Reading Room * XR [...] MD Report Verified Date/Time:01/23/2017 14:12:23 Reading Location: [facility] C013X Ortho Consult Reading Room Procedure Note Interface, External Ris In - 01/23/2017 2:56 PM DIPLOMATIC COURIER FINAL REPORT INDICATION: Right hand pain after [...] Report Verified Date/Time: 01/23/2017 14:12:23 Reading Location: [facility] C013X Ortho Consult Reading Room * [...] MD Report Verified Date/Time:01/23/2017 14:01:34 Reading Location: [address] Body Reading Room Procedure Note Interface, External Ris In - 01/23/2017 2:03 PM DIPLOMATIC COURIER FINAL REPORT Left femur dated 01/23/2017 Clinical [...] Report Verified Date/Time: 01/23/2017 14:01:34 Reading Location: [facility] C013Y CT Body Reading Room * [...] MD Report Verified Date/Time:01/23/2017 14:01:34 Reading Location: [facility] C013Y CT Body Reading Room Procedure Note Interface, External Ris In - 01/23/2017 2:03 PM DIPLOMATIC COURIER FINAL REPORT Left femur dated 01/23/2017 Clinical [...] Report Verified Date/Time: 01/23/2017 14:01:34 Reading Location: [facility] C0Y CT Body Reading Room * [...] MD Report Verified Date/Time:01/23/2017 14:01:34 Reading Location: [facility] C0Y CT Body Reading Room Procedure Note Interface, External Ris In - 01/23/2017 2:03 PM DIPLOMATIC COURIER FINAL REPORT Left femur dated 01/23/2017 Clinical [...] Report Verified Date/Time: 01/23/2017 14:01:34 Reading Location: [facility] C013[facility] CT Body Reading Room [...] MD Report Verified Date/Time:01/23/2017 14:01:34 Reading Location: [address] Body Reading Room Procedure Note Interface, External Ris In - 01/23/2017 2:03 PM DIPLOMATIC COURIER FINAL REPORT Left femur dated 01/23/2017 Clinical [...] Report Verified Date/Time: 01/23/2017 14:01:34 Reading Location: [facility] C013[facility] CT Body Reading Room after 06/24/2016
[2017-06-25] MEDS: HYDROCODONE/APAP 5MG-325MG TAB PO PRN ×2 (15:46→22:15)
[2017-06-25] MEDS ORDERED: HYDRALAZINE HCL 20 MG/ML VIAL IV PRN (16:15)
[2017-06-25] MEDS: FUROSEMIDE INJ 10 MG/ML 2 ML VIAL IV SCH (17:00)
[2017-06-25] MEDS ORDERED: FUROSEMIDE INJ 10 MG/ML 2 ML VIAL IV SCH (17:00)
[2017-06-25 18:26] VITALS: BP 138/65
[2017-06-25 18:39] VITALS: BP 138/65
[2017-06-25] MEDS ORDERED: SODIUM CHLORIDE 0.9% 250ML 250 ML IV ONE (19:00)
[2017-06-25 20:00] VITALS: BP_SYST 146; BP_DIAS 53; BP_DIAS 83
[2017-06-25] MEDS: HEPARIN SOD (PORCINE) 5,000 UNIT/ML VIAL SC SCH (21:00)
[2017-06-25] MEDS: SIMVASTATIN 40 MG TAB PO SCH (21:29)
[2017-06-25] MEDS: ALLOPURINOL 300 MG TAB PO SCH (21:29)
[2017-06-26] VITALS (9 sets, daily range): BP systolic 135–169; BP diastolic 71–84
[2017-06-26] MEDS ORDERED: SODIUM CHLORIDE 0.9% 250ML 250 ML ONE ×2 (00:24→10:36)
[2017-06-26] MEDS: FUROSEMIDE INJ 10 MG/ML 2 ML VIAL IV PRN ×2 (05:30→13:36)
[2017-06-26] MEDS: HYDROCODONE/APAP 5MG-325MG TAB PO PRN ×3 (08:00→20:07)
[2017-06-26] MEDS: HYDROXYUREA 500 MG CAPSULE PO SCH ×2 (08:53→17:01)
[2017-06-26] MEDS: DONEPEZIL HCL 5 MG TAB PO SCH (08:53)
[2017-06-26] MEDS: METOPROLOL SUCCINATE 25 MG TAB XL PO SCH (08:53)
[2017-06-26] MEDS: LISINOPRIL 10 MG TAB PO SCH (08:53)
[2017-06-26] MEDS: ASPIRIN 81 MG ENTERIC COATED PO SCH (08:53)
[2017-06-26] MEDS: HEPARIN SOD (PORCINE) 5,000 UNIT/ML VIAL SC SCH ×2 (08:54→21:10)
[2017-06-26] MEDS: FUROSEMIDE INJ 10 MG/ML 2 ML VIAL IV SCH ×2 (09:00→17:01)
[2017-06-26 10:20] LABS: EOSINOPHILS # (AUTO) 0.1 (0.0-0.4); EOSINOPHILS % 0.1 % (0.0-6.0); HEMATOCRIT 30.4 % (38.2-49.6); HEMOGLOBIN 8.9 g/dL (14.0-18.0); LYMPHOCYTES # (AUTO) 106.4 (1.0-3.2); LYMPHOCYTES % 94.1 % (18.0-39.1); MEAN CORPUSCULAR HGB CONC 29.3 g/dL (31-35); MEAN CORPUSCULAR VOLUME 85.4 fL (81-99); MONOCYTES # (AUTO) 0.2 (0.2-0.8); MONOCYTES % 0.2 % (4.4-11.3); NEUTROPHILS # (AUTO) 6.2 (2.1-6.9); NEUTROPHILS % 5.4 % (38.7-80.0); PLATELET COUNT 193 x10e3/uL (140-360); RED BLOOD COUNT 3.56 x10e6/uL (4.3-5.7); RED CELL DISTRIBUTION WIDTH 19.9 % (11.7-14.4)
[2017-06-26 10:44] LABS: ALANINE AMINOTRANSFERASE 12 IU/L (0-55); ALBUMIN 2.5 g/dL (3.5-5.0); ALBUMIN/GLOBULIN RATIO 1.1 (0.8-2.0); ALKALINE PHOSPHATASE 80 IU/L (40-150); ANION GAP 10.9 mmol/L (8-16); BLOOD UREA NITROGEN 12 mg/dL (7-26); BUN/CREATININE RATIO 16 (6-25); CALCIUM 8.2 mg/dL (8.4-10.2); CARBON DIOXIDE 31 mmol/L (22-29); CHLORIDE 92 mmol/L (98-107); CHOLESTEROL 74 MD/DL (0-199); CREATININE, SERUM 0.75 mg/dL (0.72-1.25); EST GLOMERULAR FILTRATION RATE > 60 ML/MIN (60-); GLUCOSE 173 mg/dL (74-118); HDL CHOLESTEROL 25 MG/DL (40-60); LDL CHOLESTEROL 40 MG/DL (60-130); SODIUM 131 mmol/L (136-145); TRIGLYCERIDES 46 MG/DL (0-149)
[2017-06-26 10:56] LABS: POTASSIUM 2.9 mmol/L (3.5-5.1)
[2017-06-26 12:10] LABS: LYMPHOCYTES % (MANUAL) 94 % (19-48); NEUTROPHILS % (MANUAL) 6 % (40-74); PLATELET ESTIMATE ADEQUATE; PLATELET MORPHOLOGY COMMENT NORMAL; RBC MORPHOLOGY COMMENT NORMAL
[2017-06-26] MEDS ORDERED: POTASSIUM CHLORIDE 20 MEQ TAB CR PO ONE ×3 (13:00→14:15)
[2017-06-26] MEDS ORDERED: MAGNESIUM SULFATE 2GM/50ML 50 ML IV ONE (13:00)
[2017-06-26 16:17] LABS: CLARITY,URINE CLEAR (CLEAR); COLOR,URINE YELLOW (YELLOW); LEUKOCYTE ESTERASE ,URINE NEGATIVE (NEGATIVE); NITRITE,URINE NEGATIVE (NEGATIVE)
[2017-06-26 16:18] LABS: BILIRUBIN,URINE NEGATIVE (NEGATIVE); KETONES,URINE NEGATIVE (NEGATIVE); PROTEIN,URINE DIPSTICK NEGATIVE (NEGATIVE); URINE UROBILINOGEN 1 mg/dL (0.2 - 1)
[2017-06-26 16:21] LABS: BACTERIA,URINE FEW /HPF; EPITHELIAL CELLS,URINE FEW /LPF; RBC,URINE 0-5 /HPF (0-5); WBC,URINE (MAN) 0-5 /HPF (0-5)
[2017-06-26] MEDS: SIMVASTATIN 40 MG TAB PO SCH (20:07)
[2017-06-26] MEDS: ALLOPURINOL 300 MG TAB PO SCH (20:07)
[2017-06-27] VITALS (9 sets, daily range): BP systolic 128–149; BP diastolic 61–80
[2017-06-27] MEDS: HYDROCODONE/APAP 5MG-325MG TAB PO PRN ×3 (03:33→19:48)
[2017-06-27 06:51] LABS: EOSINOPHILS # (AUTO) 0.1 (0.0-0.4); EOSINOPHILS % 0.1 % (0.0-6.0); HEMATOCRIT 30.3 % (38.2-49.6); LYMPHOCYTES # (AUTO) 94.1 (1.0-3.2); LYMPHOCYTES % 94.4 % (18.0-39.1); MEAN CORPUSCULAR HEMOGLOBIN 25.8 pg (28-32); MEAN CORPUSCULAR HGB CONC 29.7 g/dL (31-35); MEAN CORPUSCULAR VOLUME 86.8 fL (81-99); MONOCYTES # (AUTO) 0.2 (0.2-0.8); MONOCYTES % 0.2 % (4.4-11.3); NEUTROPHILS # (AUTO) 5.1 (2.1-6.9); NEUTROPHILS % 5.1 % (38.7-80.0); PLATELET COUNT 180 x10e3/uL (140-360); RED BLOOD COUNT 3.49 x10e6/uL (4.3-5.7); RED CELL DISTRIBUTION WIDTH 18.8 % (11.7-14.4)
[2017-06-27 07:17] LABS: ANION GAP 12.2 mmol/L (8-16); BLOOD UREA NITROGEN 12 mg/dL (7-26); BUN/CREATININE RATIO 16 (6-25); CALCIUM 8.1 mg/dL (8.4-10.2); CARBON DIOXIDE 31 mmol/L (22-29); CHLORIDE 92 mmol/L (98-107); CREATININE, SERUM 0.74 mg/dL (0.72-1.25); EST GLOMERULAR FILTRATION RATE > 60 ML/MIN (60-); GLUCOSE 106 mg/dL (74-118); MAGNESIUM 1.5 MG/DL (1.3-2.1); POTASSIUM 3.2 mmol/L (3.5-5.1); SODIUM 132 mmol/L (136-145)
[2017-06-27] MEDS: DONEPEZIL HCL 5 MG TAB PO SCH (09:42)
[2017-06-27] MEDS: HYDROXYUREA 500 MG CAPSULE PO SCH ×2 (09:42→16:47)
[2017-06-27] MEDS: LISINOPRIL 10 MG TAB PO SCH (09:42)
[2017-06-27] MEDS: FUROSEMIDE INJ 10 MG/ML 2 ML VIAL IV SCH ×2 (09:42→16:47)
[2017-06-27] MEDS: ASPIRIN 81 MG ENTERIC COATED PO SCH (09:42)
[2017-06-27] MEDS: METOPROLOL SUCCINATE 25 MG TAB XL PO SCH (09:43)
[2017-06-27] MEDS: HEPARIN SOD (PORCINE) 5,000 UNIT/ML VIAL SC SCH ×2 (09:43→21:00)
--- NOTE | 2017-06-27 10:02 | Consultation ---
DATE OF CONSULTATION: June 27, 2017 REASON FOR CONSULTATION: Chronic lymphatic leukemia with leukocytosis and anemia. This is an 81-year-old gentleman who was seen initially in the clinic in 2016 with leukocytosis. The patient was diagnosed with chronic lymphocytic leukemia. He was not followed in the clinic. His other medical conditions include congestive heart failure, hypertension, hip fracture, dementia, and hyperlipidemia. He is currently in the hospital with leukocytosis, scrotal pain and swelling, and worsening lethargy. At the time of admission, the patient's white cell count was very elevated. He is also complaining of bilateral lower extremity edema. No fever or chills reported. The patient also has symptomatic anemia. No active GI bleed noted. The patient received blood transfusion, and also started on hydroxyurea with allopurinol. Symptomatically doing better. His counts are trending downward. His current white cell count is 99. So far, tolerating medication very well. His coagulation profile was normal. Kidney function was normal. PAST MEDICAL HISTORY 1. Hypertension. 2. CHF. 3. Dementia. 4. Chronic lymphocytic leukemia. 5. Hip fracture. ALLERGIES: REVIEWED AND INCLUDE NKA. MEDICATIONS: List reviewed. SOCIAL HISTORY: The patient with no smoking, alcohol or drugs. The patient lives with family. REVIEW OF SYSTEMS: A 12-point reviewed as per HPI. FAMILY HISTORY: Reviewed and noncontributory. PHYSICAL EXAMINATION VITALS: Stable. HEENT: Normocephalic and atraumatic. Sclerae pink. Conjunctivae clear. NECK: Supple. CHEST: Clear to auscultation. CARDIOVASCULAR: Regular rate and rhythm. ABDOMEN: Soft and nontender. EXTREMITIES: The patient has 2+ edema. BACK ORDER CLERK: Intact. LABS AND IMAGING: Reviewed. ASSESSMENT AND PLAN: The patient has a history of multiple medical conditions. Currently, in the hospital with scrotal pain, swelling and bilateral lower extremity edema. The patient has a history of chronic systolic biventricular congestive heart failure. Currently, started on Lasix. Symptomatically, doing good. The patient also has leukocytosis with lymphocytosis. He was already diagnosed with chronic lymphocytic leukemia. He was started on hydroxyurea, allopurinol and also received blood transfusion. White cell counts are trending downward. Clinical condition is stable. RECOMMENDATIONS: PET CT as an outpatient. Palliative chemo for chronic lymphocytic leukemia as an outpatient. Will continue remaining care. Will monitor the patient very closely. Job#: [id number] RI
[2017-06-27 11:39] LABS: BLAST CELLS % MANUAL 1; LYMPHOCYTES % (MANUAL) 87 % (19-48); MONOCYTES % (MANUAL) 1 % (3.4-9.0); NEUTROPHILS % (MANUAL) 8 % (40-74)
[2017-06-27 11:41] LABS: HYPOCHROMASIA SLIGHT; PLATELET ESTIMATE ADEQUATE; PLATELET MORPHOLOGY COMMENT NORMAL; RBC MORPHOLOGY COMMENT NORMAL
[2017-06-27 11:42] LABS: ANISOCYTOSIS MODERATE; SMUDGE CELLS MODERATE
[2017-06-27] MEDS ORDERED: MAGNESIUM SULFATE 2GM/50ML 50 ML IV ONE (12:20)
[2017-06-27] MEDS ORDERED: POTASSIUM CHLORIDE 20 MEQ TAB CR PO ONE (12:30)
[2017-06-27] MEDS: ALLOPURINOL 300 MG TAB PO SCH (21:00)
[2017-06-27] MEDS: SIMVASTATIN 40 MG TAB PO SCH (21:00)
[2017-06-28] VITALS (8 sets, daily range): BP systolic 111–143; BP diastolic 55–83
[2017-06-28] MEDS: ONDANSETRON HCL 4 MG ORAL DISINTEGRATING TAB PO PRN ×3 (03:36→17:06)
[2017-06-28] MEDS: HYDROCODONE/APAP 5MG-325MG TAB PO PRN ×3 (03:37→15:33)
[2017-06-28 06:39] LABS: EOSINOPHILS # (AUTO) 0.2 (0.0-0.4); EOSINOPHILS % 0.2 % (0.0-6.0); HEMATOCRIT 30.3 % (38.2-49.6); LYMPHOCYTES # (AUTO) 96.2 (1.0-3.2); LYMPHOCYTES % 93.5 % (18.0-39.1); MEAN CORPUSCULAR HEMOGLOBIN 25.6 pg (28-32); MEAN CORPUSCULAR HGB CONC 29.7 g/dL (31-35); MEAN CORPUSCULAR VOLUME 86.1 fL (81-99); MONOCYTES # (AUTO) 1.2 (0.2-0.8); MONOCYTES % 1.2 % (4.4-11.3); NEUTROPHILS # (AUTO) 5.1 (2.1-6.9); NEUTROPHILS % 4.9 % (38.7-80.0); PLATELET COUNT 185 x10e3/uL (140-360); RED BLOOD COUNT 3.52 x10e6/uL (4.3-5.7); RED CELL DISTRIBUTION WIDTH 19.5 % (11.7-14.4)
[2017-06-28 07:11] LABS: ANION GAP 10.4 mmol/L (8-16); BLOOD UREA NITROGEN 12 mg/dL (7-26); BUN/CREATININE RATIO 16 (6-25); CALCIUM 8.2 mg/dL (8.4-10.2); CARBON DIOXIDE 32 mmol/L (22-29); CHLORIDE 91 mmol/L (98-107); CREATININE, SERUM 0.73 mg/dL (0.72-1.25); EST GLOMERULAR FILTRATION RATE > 60 ML/MIN (60-); GLUCOSE 112 mg/dL (74-118); MAGNESIUM 1.8 MG/DL (1.3-2.1); POTASSIUM 3.4 mmol/L (3.5-5.1); SODIUM 130 mmol/L (136-145)
[2017-06-28] MEDS: HYDROXYUREA 500 MG CAPSULE PO SCH ×2 (08:52→16:46)
[2017-06-28] MEDS: FUROSEMIDE INJ 10 MG/ML 2 ML VIAL IV SCH ×2 (08:52→16:46)
[2017-06-28] MEDS: ASPIRIN 81 MG ENTERIC COATED PO SCH (08:52)
[2017-06-28] MEDS: DONEPEZIL HCL 5 MG TAB PO SCH (08:52)
[2017-06-28] MEDS: LISINOPRIL 10 MG TAB PO SCH (08:53)
[2017-06-28] MEDS: HEPARIN SOD (PORCINE) 5,000 UNIT/ML VIAL SC SCH ×2 (08:53→21:00)
[2017-06-28] MEDS: METOPROLOL SUCCINATE 25 MG TAB XL PO SCH (08:53)
--- NOTE | 2017-06-28 09:35 | Progress Note ---
DATE: June 28, 2017 The patient was seen and examined today. The patient appears comfortable. No worsening events noted. The patient's current count showed increased leukocytosis. PHYSICAL EXAMINATION GENERAL: Alert, awake and communicative. HEENT: Normocephalic and atraumatic. Sclerae pink. Conjunctivae clear. NECK: Supple. CHEST: Clear to auscultation. CARDIOVASCULAR: Regular rate and rhythm. EXTREMITIES: No edema. LABS AND IMAGING: Reviewed. ASSESSMENT AND PLAN: The patient with history of chronic lymphocytic leukemia with elevated white cell count. The patient's current white cell count is trending upward. The patient currently on hydroxyurea and tolerating twice a day. RECOMMENDATIONS: Increase dose to 2000 mg twice a day. Continue allopurinol. Will monitor the patient's electrolytes very closely. The patient is following with Dr. Mccormick at [facility]. Tried to communicate with Dr. Mccormick with no answer. At this point, will continue current management. Scrotal pain and swelling about the lower extremities with edema with lymphadenopathy. The patient will need outpatient PET CT and chemo. Further management deferred to Dr. Mccormick as an outpatient. Will continue remaining care. Will follow the patient closely. Job#: [id number] DARIN
[2017-06-28 10:22] LABS: LYMPHOCYTES % (MANUAL) 96 % (19-48); NEUTROPHILS % (MANUAL) 4 % (40-74); SMUDGE CELLS MANY
[2017-06-28 10:23] LABS: ANISOCYTOSIS MODE; PLATELET ESTIMATE ADEQUATE; PLATELET MORPHOLOGY COMMENT NORMAL; RBC MORPHOLOGY COMMENT NORMAL
[2017-06-28 10:24] LABS: HYPOCHROMASIA SLIGHT; MICROCYTOSIS SLIGHT; POIKILOCYTOSIS SLIG
--- NOTE | 2017-06-28 15:00 | Diagnostic Imaging Report ---
PROCEDURE:ABDOMEN-1VIEW (KUB) TECHNIQUE:Supine AP abdomen INDICATION:Nausea/vomiting with diffuse abdominal pain COMPARISON:None. FINDINGS: Gas is present within normal caliber loops of small and large bowel. No gross evidence of ascites. Intact skeleton with degenerative disc disease. Study limited by single plane imaging of the upper abdomen. CONCLUSION: Grossly unremarkable bowel gas pattern on limited supine imaging. Dictated by: Joselito Miguel M.D. on 06/28/2017 at 15:01 Electronically approved by: Joselito Miguel M.D. on 06/28/2017 at 15:01
[2017-06-28] MEDS ORDERED: POTASSIUM CHLORIDE 20 MEQ TAB CR PO STA (16:51)
[2017-06-28] MEDS: PREGABALIN 75 MG CAP PO SCH (17:45)
[2017-06-28] MEDS ORDERED: GABAPENTIN 300 MG CAP PO SCH (19:00)
[2017-06-28] MEDS: SIMVASTATIN 40 MG TAB PO SCH (21:00)
[2017-06-28] MEDS: ALLOPURINOL 300 MG TAB PO SCH (21:00)
[2017-06-29] VITALS (7 sets, daily range): BP systolic 107–143; BP diastolic 56–77
[2017-06-29] MEDS: HYDROCODONE/APAP 5MG-325MG TAB PO PRN ×3 (01:09→21:30)
[2017-06-29 07:08] LABS: EOSINOPHILS # (AUTO) 0.2 (0.0-0.4); EOSINOPHILS % 0.2 % (0.0-6.0); HEMATOCRIT 32.5 % (38.2-49.6); HEMOGLOBIN 9.6 g/dL (14.0-18.0); LYMPHOCYTES # (AUTO) 94.7 (1.0-3.2); LYMPHOCYTES % 94.4 % (18.0-39.1); MEAN CORPUSCULAR HEMOGLOBIN 26.4 pg (28-32); MEAN CORPUSCULAR HGB CONC 29.5 g/dL (31-35); MONOCYTES # (AUTO) 0.2 (0.2-0.8); MONOCYTES % 0.2 % (4.4-11.3); NEUTROPHILS # (AUTO) 5.1 (2.1-6.9); PLATELET COUNT 199 x10e3/uL (140-360); RED BLOOD COUNT 3.63 x10e6/uL (4.3-5.7); RED CELL DISTRIBUTION WIDTH 20.9 % (11.7-14.4)
[2017-06-29 07:17] LABS: MEAN CORPUSCULAR VOLUME 89.5 fL (81-99)
[2017-06-29 07:37] LABS: ANION GAP 12.2 mmol/L (8-16); BLOOD UREA NITROGEN 14 mg/dL (7-26); BUN/CREATININE RATIO 16 (6-25); CALCIUM 8.5 mg/dL (8.4-10.2); CARBON DIOXIDE 31 mmol/L (22-29); CHLORIDE 94 mmol/L (98-107); CREATININE, SERUM 0.88 mg/dL (0.72-1.25); EST GLOMERULAR FILTRATION RATE > 60 ML/MIN (60-); GLUCOSE 105 mg/dL (74-118); POTASSIUM 4.2 mmol/L (3.5-5.1); SODIUM 133 mmol/L (136-145)
[2017-06-29] MEDS: LISINOPRIL 10 MG TAB PO SCH (09:00)
[2017-06-29] MEDS: HEPARIN SOD (PORCINE) 5,000 UNIT/ML VIAL SC SCH ×2 (09:00→21:00)
[2017-06-29] MEDS: DONEPEZIL HCL 5 MG TAB PO SCH (09:00)
[2017-06-29] MEDS: METOPROLOL SUCCINATE 25 MG TAB XL PO SCH (09:00)
[2017-06-29] MEDS: HYDROXYUREA 500 MG CAPSULE PO SCH ×2 (09:00→17:00)
[2017-06-29] MEDS: ASPIRIN 81 MG ENTERIC COATED PO SCH (09:00)
[2017-06-29] MEDS: PREGABALIN 75 MG CAP PO SCH ×2 (09:00→17:00)
--- NOTE | 2017-06-29 09:18 | Progress Note ---
DATE: June 29, 2017 The patient was seen and examined today. The patient appeared comfortable. Clinically doing better. No worsening events noted. The patient had persistent leukocytosis. Hydroxy dose was increased yesterday. So far, tolerating very well. PHYSICAL EXAMINATION GENERAL: Alert, awake and communicative. HEENT: Normocephalic and atraumatic. Sclerae pink. Conjunctivae clear. NECK: Supple. No JVD. CHEST: Clear to auscultation. No added sound. CARDIOVASCULAR: Regular rate and rhythm. No murmur. 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 EXTREMITIES: No clubbing, cyanosis or edema. SKIN: Intact. LABS AND IMAGING: Reviewed. ASSESSMENT AND PLAN: The patient with history of chronic lymphocytic leukemia admitted with elevated white cell count, inguinal lymphadenopathy, scrotal swelling. The patient had persistent elevated white blood cells. Hydroxyurea dose was increased yesterday from 1 mg twice a day to 2 g twice a day. The patient so far is tolerating it very well. Continue current dose with allopurinol. Will monitor the patient very closely. The patient will need outpatient workup, including PET computerized tomography, bone marrow biopsy and will benefit with chemo treatment. Will communicate with primary oncologist, Dr. Mccormick. Will continue remaining care. Will follow the patient closely. Job#: [id number] DARIN
[2017-06-29 11:39] LABS: LYMPHOCYTES % (MANUAL) 79 % (19-48); MONOCYTES % (MANUAL) 1 % (3.4-9.0); NEUTROPHILS % (MANUAL) 12 % (40-74)
[2017-06-29 11:40] LABS: ANISOCYTOSIS SLIGHT; HYPOCHROMASIA SLIGHT; PLATELET ESTIMATE ADEQUATE; PLATELET MORPHOLOGY COMMENT FEW LARGE; SMUDGE CELLS MODERATE
[2017-06-29 11:43] LABS: RBC MORPHOLOGY COMMENT NORMAL
--- NOTE | 2017-06-29 12:57 | Diagnostic Imaging Report ---
Examination: CT head without contrast Clinical Indication: Fall. Head injury. Technique: Transaxial noncontrast images from the skull base through the vertex were obtained. Sagittal and coronal reformatted images were done. Comparison: None. Findings: Scalp: Small right frontal scalp hematoma. Bones: Intact. No fractures. No blastic or lytic lesions. Brain sulci: Appropriate for patient's age. Ventricles: The ventricular size is out of proportion with respect to cerebral convexity sulci, concerning for a communicating type of hydrocephalus, such as normal pressure hydrocephalus. Extra-axial space: No abnormalities. Parenchyma: There are subtle confluent areas of low-attenuation within subcortical and periventricular white matter, nonspecific, but could represent microvascular ischemic disease. No masses, hemorrhage, or acute or chronic cortical based vascular insults. Suprasellar region: No abnormalities. Craniocervical junction: The foramen magnum is patent. No Chiari one malformation. Incidental findings: Atherosclerotic calcification of the cavernous and supraclinoid internal carotid and V4 segments of the bilateral vertebral arteries. Impression: 1. Small right frontal scalp hematoma. 2. No acute intracranial finding. 3. Mild chronic microvascular ischemic change. 4. Findings as described above can be seen in normal pressure hydrocephalus. Signed by: Dr. Denise Foley M.D. on 06/29/2017 12:53 PM
[2017-06-29] MEDS: FUROSEMIDE INJ 10 MG/ML 2 ML VIAL IV SCH (17:00)
[2017-06-29] MEDS: ALLOPURINOL 300 MG TAB PO SCH (21:39)
[2017-06-29] MEDS: SIMVASTATIN 40 MG TAB PO SCH (21:39)
[2017-06-30] VITALS: BP 119/55
[2017-06-30] MEDS: HYDROCODONE/APAP 5MG-325MG TAB PO PRN ×2 (00:44→13:00)
[2017-06-30] MEDS ORDERED: IBUPROFEN 600 MG TAB PO PRN (02:15)
[2017-06-30 04:00] VITALS: BP 123/64
[2017-06-30 06:54] LABS: EOSINOPHILS # (AUTO) 0.2 (0.0-0.4); EOSINOPHILS % 0.2 % (0.0-6.0); HEMATOCRIT 30.6 % (38.2-49.6); HEMOGLOBIN 8.9 g/dL (14.0-18.0); LYMPHOCYTES # (AUTO) 84.6 (1.0-3.2); LYMPHOCYTES % 95.6 % (18.0-39.1); MEAN CORPUSCULAR HGB CONC 29.1 g/dL (31-35); MEAN CORPUSCULAR VOLUME 89.5 fL (81-99); MONOCYTES # (AUTO) 0.4 (0.2-0.8); MONOCYTES % 0.4 % (4.4-11.3); NEUTROPHILS # (AUTO) 3.1 (2.1-6.9); NEUTROPHILS % 3.6 % (38.7-80.0); PLATELET COUNT 193 x10e3/uL (140-360); RED BLOOD COUNT 3.42 x10e6/uL (4.3-5.7); RED CELL DISTRIBUTION WIDTH 20.8 % (11.7-14.4)
[2017-06-30 07:24] LABS: BLOOD UREA NITROGEN 24 mg/dL (7-26); BUN/CREATININE RATIO 30 (6-25); CALCIUM 8.3 mg/dL (8.4-10.2); CARBON DIOXIDE 29 mmol/L (22-29); CHLORIDE 94 mmol/L (98-107); EST GLOMERULAR FILTRATION RATE > 60 ML/MIN (60-); GLUCOSE 117 mg/dL (74-118); SODIUM 132 mmol/L (136-145)
[2017-06-30 07:30] VITALS: BP 112/59
[2017-06-30 07:47] VITALS: BP 112/59
[2017-06-30] MEDS: PREGABALIN 75 MG CAP PO SCH ×2 (09:00→16:54)
[2017-06-30] MEDS: ASPIRIN 81 MG ENTERIC COATED PO SCH (09:00)
[2017-06-30] MEDS: LISINOPRIL 10 MG TAB PO SCH (09:00)
[2017-06-30] MEDS: FUROSEMIDE INJ 10 MG/ML 2 ML VIAL IV SCH (09:00)
[2017-06-30] MEDS: HYDROXYUREA 500 MG CAPSULE PO SCH ×2 (09:00→16:53)
[2017-06-30] MEDS: HEPARIN SOD (PORCINE) 5,000 UNIT/ML VIAL SC SCH (09:00)
[2017-06-30] MEDS: METOPROLOL SUCCINATE 25 MG TAB XL PO SCH (09:00)
[2017-06-30] MEDS: DONEPEZIL HCL 5 MG TAB PO SCH (09:00)
--- NOTE | 2017-06-30 09:05 | Progress Note ---
DATE: June 30, 2017 The patient was seen and examined today. The patient appeared comfortable. Clinical condition is improving. No new events noted. PHYSICAL EXAMINATION GENERAL: Alert, awake and communicative. HEENT: Normocephalic and atraumatic. Sclerae pink. Conjunctivae clear. NECK: Supple. CHEST: Clear to auscultation. CARDIOVASCULAR: Regular rate and rhythm. EXTREMITIES: No clubbing, cyanosis or edema. 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 SKIN: Intact. LABS AND IMAGING: Reviewed. ASSESSMENT AND PLAN: The patient with a history of chronic lymphocytic leukemia admitted with elevated white cell count, inguinal lymphadenopathy, scrotal swelling. The patient's white cell count is trending down. Hydroxyurea dose was increased the day before yesterday. Tolerating very well. Hemoglobin trending downward, but is still above 8. Clinical condition is improving. Recommendation to continue current dose. The patient will need outpatient restaging workup, including PET CT, bone marrow biopsy. The patient will benefit with chemo. Will defer to primary oncologist, Dr. Mccormick. Will continue remaining care. Will follow the patient. Job#: [id number] DARIN
[2017-06-30 09:14] LABS: ANISOCYTOSIS SLIGHT; BLAST CELLS % MANUAL 5; HYPOCHROMASIA SLIGHT; LYMPHOCYTES % (MANUAL) 92 % (19-48); NEUTROPHILS % (MANUAL) 3 % (40-74); POIKILOCYTOSIS SLIGHT; RBC MORPHOLOGY COMMENT ABNORMAL; SMUDGE CELLS MANY
[2017-06-30 09:16] LABS: PLATELET ESTIMATE ADEQUATE; PLATELET MORPHOLOGY COMMENT FEW LARGE
[2017-06-30 11:46] VITALS: BP 118/57
[2017-06-30 15:43] VITALS: BP 107/66
[2017-06-30] MEDS ORDERED: LYRICA75 MG PO (16:07)
[2017-06-30] MEDS ORDERED: HYDROXYUREA PO (16:08)
[2017-06-30] MEDS ORDERED: LASIX40 MG PO (16:08)
--- NOTE | 2017-06-30 16:42 | Discharge Summary ---
PRIMARY CARE DOCTOR: Dr. Daron Chavira. FINAL DIAGNOSES 1. Severe scrotal and leg swelling. 2. Chronic lymphocytic leukemia. 3. Chronic stable systolic congestive heart failure. 4. Hyponatremia. 5. Hypotension. CONSULTANTS: Dr. New, hematology. PROCEDURES/STUDIES PERFORMED: Head CT. HISTORY: Per H\T\P. HOSPITAL COURSE: The patient was admitted. Of note, this is the 3rd admission within the last couple of months. Patient was started on IV Lasix for diuresis, and finally his scrotum is looking better. His legs are looking better as well. I will go ahead and switch him to p.o. Lasix and let him go home. As far as his CLL, he was started on hydroxyurea per Dr. New. His white count came down to 88 on the day of discharge. Patient will likely need outpatient PET scan and chemotherapy. I have relayed this information to his PCP, with whom patient will follow up in a week. As far as his neuropathy, since he stated that Neurontin did not work in the past, I have started him on Lyrica and patient will go home with it. His CHF was stable. His hyponatremia was very mild, slowly improving and asymptomatic. His hypotension was stable. Patient received heparin subcutaneous for DVT prophylaxis while here. Patient was seen and examined today. It took 35 minutes total to discharge this patient. CONDITION ON DISCHARGE: Improved. DISCHARGE MEDICATIONS: Please see medication reconciliation form. CHERYL COUCH M.D. Job#: [id number] EV cc:DARON CHAVIRA MD
== END 2017-06-30 18:19 | disposition home or self-care (01) | DRG 841 ==
LOC: ER 08:43 → ERHOLD 11:09 → MED/SURG3 17:30
PROVIDERS: ADMIT Internal Medicine; ATTEND Internal Medicine
PROC: 30233N1 Transfusion of Nonautologous Red Blood Cells into Peripheral Vein, Percutaneous Approach (ICD-10-PCS; principal; 2017-06-26)
DX: C91.10 Chronic lymphocytic leukemia of B-cell type not having achieved remission (principal); I50.22 Chronic systolic (congestive) heart failure; E87.1 Hypo-osmolality and hyponatremia; N50.89 Other specified disorders of the male genital organs; I11.0 Hypertensive heart disease with heart failure; E87.6 Hypokalemia; E78.5 Hyperlipidemia, unspecified; G62.0 Drug-induced polyneuropathy; T45.1X5A Adverse effect of antineoplastic and immunosuppressive drugs, initial encounter; F03.90 Unspecified dementia, unspecified severity, without behavioral disturbance, psychotic disturbance, mood disturbance, and anxiety; Z79.82 Long term (current) use of aspirin
CPT/HCPCS: 36415; 70450; 71045; 74018; 80048; 80053; 80061; 81001; 82550; 82553; 83735; 83880; 84484; 85025; 85610; 85730; 86850; 86900; 86920; 87086; 93005; 96372; 99284; J1644; J1940; J7050; P9016

== ENCOUNTER 2017-07-17 17:32 | Inpatient (IN) | payer MEDICARE ==
[~2017-07-17] VITALS: Ht 182.9 cm; Wt 64.2 kg
[~2017-07-17 17:32] MED LIST changes: +ASPIR 8181 MG PO; +HYDROXYUREA PO; +LASIX40 MG PO; +LYRICA75 MG PO
--- OUTSIDE RECORDS SUMMARY | 2017-07-17 17:35 | XMS REPORT | Continuity of Care Document ---
Author Author [facility] Organization [facility] Address [address] [place] [address] Phone Unavailable Care Team Providers Care Client Technical Specialist Name Role Phone NO, PCP PCP Unavailable Insurance Providers Guarantor Heather Rodas R Address [address] [place] [address] [facility] Medicare Advantage Policy Number [id number] Subscriber's Name Heather Rodas R Relationship 18 Self / Same As Patient Group Name RETIRED Effective Date 10 Advance Directives Directive Response Recorded Date/Time Does the patient have an advance directive? No 06/25/17 6:34pm If yes, is advance directive on file with [facility]? No 06/25/17 6:34pm If not on file with [facility] will patient provide a copy? No 06/25/17 6:34pm Do you have a Directive to Physician? No 06/25/17 9:48am Do you have a Medical Power of Consumer Services Advisor? No 06/25/17 9:48am Do you have an out of hospital Do Not Resuscitate Order? No 06/25/17 9:48am Do you have any special needs we should be aware of? No 06/25/17 9:48am Do you have a support person here with you today? Yes 06/25/17 9:48am Did patient receive Notice of Privacy Practices? Yes 06/25/17 9:48am Did patient receive patient rights and responsibilities? Yes 06/25/17 9:48am Problems Medical Problem Onset Date Status Abdominal pain Unknown Alteration consciousness 09/20/2014 Acute CHF (congestive heart failure) Unknown CLL (chronic lymphocytic leukemia) Unknown CLL (chronic lymphocytic leukemia) Unknown Edema, lower extremity Unknown Fracture of hip, closed 09/20/2014 Acute Leukocytosis Unknown Lymphadenopathy, inguinal Unknown Peripheral edema Unknown Medications Current Home Medications Medication Dose Units Route Directions Days Qty Instructions Start Date Aspirin (Aspir 81) 81 Mg Tablet.dr 81 Mg Oral Daily Donepezil Hcl 10 Mg Tablet 10 Mg Oral Daily Duloxetine Hcl (Cymbalta) 20 Mg Capcr 20 Mg Oral Twice A Day 30 Cap Famotidine 20 Mg Tab 20 Mg Oral Twice A Day 30 Tab Furosemide (Lasix) 40 Mg Tablet 40 Mg Oral Daily 30 Tab Hydrocodone Bit/Acetaminophen (Lynn 10-325 Tablet) 1 Each Tablet 0.5 Tab Oral Q3hr as needed for Neck Pain Hydroxyurea 2,000 Mg Oral Twice A Day Lisinopril 10 Mg Tablet 5 Mg Oral Daily 30 Tab Metoprolol Succinate (Toprol Xl) 25 Mg Tab.er.24h 25 Mg Oral Daily 30 Tab Potassium Chloride 10 Meq Tab.er.prt 20 Meq Oral Daily Pregabalin (Lyrica) 75 Mg Cap 75 Mg Oral Twice A Day 30 Cap Simvastatin 40 Mg Tablet 40 Mg Oral Daily 30 Tab Trazodone Hcl 50 Mg Tablet 50 Mg Oral Bedtime 30 Tab Past Home Medications Medication Directions Ordered Status Furosemide (Lasix) 20 Mg Tablet, 20 Mg Oral Daily Discontinued Gabapentin 300 Mg Capsule, 300 Mg Oral Three Times A Day Discontinued Hydrochlorothiazide 25 Mg Tablet, 25 Mg Oral Daily Discontinued Nifedipine (Nifedipine Er) 30 Mg Tab.er.24, 90 Mg Oral Daily Discontinued Trazodone Hcl 50 Mg Tablet, 50 Mg Oral Bedtime Discontinued Social History Social History Problem Response Recorded Date/Time Onset Date Status Hx Psychiatric Problems No 06/25/2017 6:34pm Not Applicable Not Applicable Hx Eating Disorder No 06/25/2017 6:34pm Not Applicable Not Applicable Hx Substance Use Disorder No 06/25/2017 6:34pm Not Applicable Not Applicable Hx Depression No 06/25/2017 6:34pm Not Applicable Not Applicable Hx Alcohol Use No 06/25/2017 6:34pm Not Applicable Not Applicable Hx Substance Use Treatment No 06/25/2017 6:34pm Not Applicable Not Applicable Hx Physical Abuse No 06/25/2017 6:34pm Not Applicable Not Applicable Smoking Status Start Date Stop Date Never Smoker Hospital Discharge Instructions No hospital discharge instruction information available. Plan of Care Discharge Date 06/30/17 6:19pm Disposition HOME, SELF-CARE Instructions/Education Provided Congestive Heart Failure Prescriptions See Medication Section Referrals LUÍS NAVARRO MD (Oncology) Order Date: 2 Weeks Entered Date: 06/30/2017 4:10pm Address: [address] [place] [id number] Functional Status Query Response Date Recorded Assistive Devices Small Base Quad Cane June 25, 2017 6:39pm Ambulation Ability 1 person assist June 25, 2017 6:39pm Toileting Ability Independent June 30, 2017 12:45pm Allergies, Adverse Reactions, Alerts No known allergies. Immunizations No immunization information available. Vital Signs Acute Vital Signs Vital Response Date/Time Temperature (Fahrenheit) 96.9 degrees F (97.6 - 99.5) 06/30/2017 3:43pm Pulse Pulse Rate (adult) 72 bpm (60 - 90) 06/30/2017 3:43pm Respiratory Rate 18 bpm (12 - 24) 06/30/2017 3:43pm Blood Pressure 107/66 mm Hg 06/30/2017 3:43pm Height 6 ft 0 in 06/25/2017 8:50am Weight 151.03 lb 06/25/2017 6:27pm Body Mass Index 20.5 kg/m^2 06/25/2017 6:34pm Results Laboratory Results Test Name Result Units Flags Reference Collection Date/Time Result Date/ Time Comments Macrocytosis SLIGHT 05/12/2017 6:31am 05/12/2017 8:07am [place] Bodies FEW 05/09/2017 11:35am 05/09/2017 1:14pm Elliptocytes [...] 4:57pm Body Fluid Lymphocytes 70 % 05/10/2017 11:41am 05/10/2017 4:57pm Body Fluid Monocytes 1 % 05/10/2017 11:41am 05/10/2017 4:57pm Body Fluid Eosinophils 2 % 05/10/2017 [...] specimen type. Body Fluid Amylase 13 05/10/2017 11:41am 05/12/2017 12:26pm No reference range has been established for this specimen type. Eosinophils % (Manual) 1 % 0-7 06/15/2017 6:35am 06/15/2017 1:22pm Stomatocytes MODERATE 06/15/2017 6:35am 06/15/2017 1:22pm Iron Level 23 ug/dL L 65-175 06/15/2017 6:35am 06/15/2017 7:31am Total Iron Binding Capacity 550 ug/dL H 261-478 06/15/2017 6:35am 2017 7:31am Percent Iron Saturation 4 % L 15-50 06/15/2017 6:35am 06/15/2017 7:31am Transferrin 393 mg/dL H 174-364 06/15/2017 6:35am 06/15/2017 7:31am White Blood Count 88.55 x10e3/uL *H 4.8-10.8 06/30/2017 6:2017 7:10am Results called to [CHEMO OCONNELL FOR NEO GOMEZ] at 0708 on 06/30/17 by Uyen Wilkins. RB OK. Red Blood Count 3.42 x10e6/uL L 4.3-5.7 06/30/2017 6:06/30/2017 7: 10am Hemoglobin 8.9 g/dL L 14.0-18.0 06/30/2017 6:06/30/2017 7:10am Hematocrit 30.6 % L 38.2-49.6 06/30/2017 6:06/30/2017 7:10am Mean Corpuscular Volume 89.5 fL 81-99 06/30/2017 6:06/30/2017 7: 10am Mean Corpuscular Hemoglobin 26.0 pg L 28-32 06/30/2017 6:2017 7:10am Mean Corpuscular Hemoglobin Concent 29.1 g/dL L 31-35 06/30/2017 6:06/30/2017 7:10am Red Cell Distribution Width 20.8 % H 11.7-14.4 06/30/2017 6:2017 7:10am Platelet Count 193 x10e3/uL 140-360 06/30/2017 6:06/30/2017 7: 10am Neutrophils (%) (Auto) 3.6 % L 38.7-80.0 06/30/2017 6:06/30/2017 7: 10am Lymphocytes (%) (Auto) 95.6 % H 18.0-39.1 06/30/2017 6:06/30/2017 7 :10am Monocytes (%) (Auto) 0.4 % L 4.4-11.3 06/30/2017 6:06/30/2017 7: 10am Eosinophils (%) (Auto) 0.2 % 0.0-6.0 06/30/2017 6:06/30/2017 7: 10am Basophils (%) (Auto) 0.0 % 0.0-1.0 06/30/2017 6:06/30/2017 7:10am IM GRANULOCYTES % 0.2 % 0.0-1.0 06/30/2017 6:06/30/2017 7:10am Neutrophils # (Auto) 3.1 2.1-6.9 06/30/2017 6:06/30/2017 7:10am Lymphocytes # (Auto) 84.6 H 1.0-3.2 06/30/2017 6:06/30/2017 7: 10am Monocytes # (Auto) 0.4 0.2-0.8 06/30/2017 6:06/30/2017 7:10am Eosinophils # (Auto) 0.2 0.0-0.4 06/30/2017 6:06/30/2017 7:10am Basophils # (Auto) 0.0 0.0-0.1 06/30/2017 6:06/30/2017 7:10am Absolute Immature Granulocyte (auto 0.22 x10e3/uL H 0-0.1 06/30/2017 6: 06/30/2017 7:10am Differential Total Cells Counted 100 06/30/2017 6:06/30/2017 9 :17am Pathology Consult Specimen Normocytic, hypochromic anemia. Lymphocytosis with increased dysplastic lymphs. Granulocytopenia. Platelets nornmal in number and morphology. Findings suggest CLL. Reviewed by Naye Jacobs MD [id number] on 06/28/17 by Uyen Wilkins 06/25/2017 9:03am 06/28/2017 2:02pm Neutrophils % (Manual) 3 % L 40-74 06/30/2017 6:06/30/2017 9:17am Lymphocytes % (Manual) 92 % H 19-48 06/30/2017 6:06/30/2017 9:17am Monocytes % (Manual) 1 % L 3.4-9.0 06/29/2017 6:06/29/2017 11:44am Reactive Lymphocytes 8 06/29/2017 6:28am 06/29/2017 11:44am Blast Cells % 5 06/30/2017 6:19am 06/30/2017 9:17am Smudge Cells MANY 06/30/2017 6:19am 06/30/2017 9:17am Platelet Estimate ADEQUATE 06/30/2017 6:19am 06/30/2017 9:17am Platelet Morphology Comment FEW LARGE 06/30/2017 6:19am 06/30/2017 9:17am Hypochromasia SLIGHT 06/30/2017 6:19am 06/30/2017 9:17am Poikilocytosis SLIGHT 06/30/2017 6:19am 06/30/2017 9:17am Anisocytosis SLIGHT 06/30/2017 6:19am 06/30/2017 9:17am Microcytosis SLIGHT 06/28/2017 6:11am 06/28/2017 10:24am Red Cell Morphology Comment ABNORMAL 06/30/2017 6:19am 06/30/2017 9 :17am Prothrombin Time 14.6 seconds H 11.9-14.5 06/25/2017 9:03am 06/25/2017 9 :58am Prothromb Time International Ratio 1.23 06/25/2017 9:03am 2017 9:58am Oral Anticoagulant Therapy INR Values: 1. Low Intensity Therapy 1.5 - 2.0 2. Moderate Intensity Therapy 2.0 - 3.0 3. High Intensity Therapy(1) 2.5 - 3.5 4. High Intensity Therapy(2) 3.0 - 4.0 5. Panic Value INR > 5.0 Activated Partial Thromboplast Time 32.8 seconds 23.8-35.5 06/25/2017 9: 03am 06/25/2017 9:58am Urine Color YELLOW YELLOW 06/25/2017 3:45pm 06/26/2017 4:18pm Urine Clarity CLEAR CLEAR 06/25/2017 3:45pm 06/26/2017 4:18pm Urine Specific [place] 1.015 1.010-1.025 06/25/2017 3:45pm 2017 4:18pm Urine pH 7 5 - 7 06/25/2017 3:45pm 06/26/2017 4:18pm Urine Leukocyte Esterase NEGATIVE NEGATIVE 06/25/2017 3:45pm 2017 4:18pm Urine Nitrite NEGATIVE NEGATIVE 06/25/2017 3:45pm 06/26/2017 4:18pm Urine Protein NEGATIVE NEGATIVE 06/25/2017 3:45pm 06/26/2017 4:18pm Urine Glucose (UA) NEGATIVE NEGATIVE 06/25/2017 3:45pm 06/26/2017 4: 18pm Urine Ketones NEGATIVE NEGATIVE 06/25/2017 3:45pm 06/26/2017 4:18pm Urine Urobilinogen 1 mg/dL 0.2 - 1 06/25/2017 3:45pm 06/26/2017 4:18pm Urine Bilirubin NEGATIVE NEGATIVE 06/25/2017 3:45pm 06/26/2017 4: 18pm Urine Blood NEGATIVE NEGATIVE 06/25/2017 3:45pm 06/26/2017 4:18pm Urine WBC 0-5 /HPF 0-5 06/25/2017 3:45pm 06/26/2017 4:21pm Urine RBC 0-5 /HPF 0-5 06/25/2017 3:45pm 06/26/2017 4:21pm Urine Bacteria FEW /HPF NONE 06/25/2017 3:45pm 06/26/2017 4:21pm Urine Epithelial Cells FEW /LPF NONE 06/25/2017 3:45pm 06/26/2017 4: 21pm Sodium Level 132 mmol/L L 136-145 06/30/2017 6:19am 06/30/2017 7:30am Potassium Level 4.0 mmol/L 3.5-5.1 06/30/2017 6:1906/30/2017 7:30am Chloride Level 94 mmol/L L 98-107 06/30/2017 6:1906/30/2017 7:30am Carbon Dioxide Level 29 mmol/L 22-06/30/2017 6:19am 06/30/2017 7: 30am Anion Gap 13.0 mmol/L 8-16 06/30/2017 6:1906/30/2017 7:30am Blood Urea Nitrogen 24 mg/dL # 7-06/30/2017 6:1906/30/2017 7:30am Creatinine 0.80 mg/dL 0.72-1.25 06/30/2017 6:19am 06/30/2017 7:30am BUN/Creatinine Ratio 30 H 6-25 06/30/2017 6:1906/30/2017 7:30am Estimat Glomerular Filtration Rate > 60 ML/MIN 60- 06/30/2017 6: 7:30am Ranges were taken from the National Kidney Disease Education Program and the National Kid[employer] Foundation literature. Reference ranges: 60 or greater: Normal 16-59 (for 3 consecutive months): Chronic kidney disease 15 or less: Kidney failure Glucose Level 117 mg/dL 74-118 06/30/2017 6:19am 06/30/2017 7:30am Calcium Level 8.3 mg/dL L 8.4-10.2 06/30/2017 6:06/30/2017 7:30am Magnesium Level 2.0 MG/DL 1.3-2.1 06/30/2017 6:1906/30/2017 7:30am Total Bilirubin 2.2 mg/dL H 0.2-1.2 06/26/2017 10:00am 06/26/2017 10: 57am Aspartate Amino Transf (AST/SGOT) 15 IU/L 5-34 06/26/2017 10:00am 06/26 10:57am Alanine Aminotransferase (ALT/SGPT) 12 IU/L 0-55 06/26/2017 10:00am 10:57am Total Protein 4.8 g/dL L 6.5-8.1 06/26/2017 10:00am 06/26/2017 10:57am Albumin 2.5 g/dL L 3.5-5.0 06/26/2017 10:00am 06/26/2017 10:57am Globulin 2.3 g/dL 2.3-3.5 06/26/2017 10:00am 06/26/2017 10:57am Albumin/Globulin Ratio 1.1 0.8-2.0 06/26/2017 10:00am 06/26/2017 10: 57am Alkaline Phosphatase 80 IU/L 40-150 06/26/2017 10:00am 06/26/2017 10: 57am Triglycerides Level 46 MG/DL 0-149 06/26/2017 10:00am 06/26/2017 10: 57am Cholesterol Level 74 MD/DL 0-199 06/26/2017 10:00am 06/26/2017 10:57am Less than 200 mg/dL Low Risk 201 - 239 mg/dL Borderline Risk 240 mg/dl and greater High Risk LDL Cholesterol 40 MG/DL L 60-130 06/26/2017 10:00am 06/26/2017 10:57am HDL Cholesterol 25 MG/DL L 40-60 06/26/2017 10:00am 06/26/2017 10:57am Cholesterol/HDL Ratio 3.0 L 3.9-4.7 06/26/2017 10:00am 06/26/2017 10: 57am B-Type Natriuretic Peptide 1064.3 pg/mL H 0-100 06/25/2017 9:03am 2017 10:04am Creatine Kinase 161 IU/L 30-200 06/25/2017 9:03am 06/25/2017 9:44am Creatine Kinase MB 2.20 ng/mL 0-5.0 06/25/2017 9:03am 06/25/2017 9: 52am Troponin I 0.012 ng/mL 0-0.300 06/25/2017 9:03am 06/25/2017 9:52am Microbiology Results Procedure Source Organism/Result Collection Date/Time Result Date/Time Result Status Blood Culture Blood NO GROWTH AFTER 5 DAYS, FINAL REPORT 05/09/2017 2:45pm 05/14/2017 3:01pm Final Procedures Procedure Status Date Provider(s) DRAINAGE OF RIGHT PLEURAL CAVITY, PERC APPROACH, DIAGN Completed 05/10/17 JABIER MARQUEZ MD Computed tomography of abdomen and pelvis with contrast Active 05/09/17 MANDO FRASER ZIPPER CUTTER Thoracentesis with ultrasound guidance Active 05/10/17 MOSES KOENIG MD, ABIM Computed tomography of brain without radiopaque contrast Active 06/29/17 CHERYL COUCH MD Encounters Encounter Location Arrival/Admit Date Discharge/Depart Date Attending Provider Discharged Inpatient [facility] 06/25/17 11:09am 6:19pm CHERYL COUCH MD Discharged Inpatient [facility] 06/12/17 5:47pm 06/15/17 4:35pm CHERYL COUCH MD Discharged Inpatient [facility] 05/09/17 2:10pm 05/16/17 6:48pm CHERYL COUCH MD
--- OUTSIDE RECORDS SUMMARY | 2017-07-17 17:35 | XMS REPORT | Clinical Summary ---
Author Author DAISY [facility] Address Unknown Phone Unavailable Care Team Providers Care Filling Winder Name Role Phone PCP Unavailable Allergies No [...] inguinal hernia 06/06/2016 CLL (chronic lymphocytic leukemia) ([facility]) 01/01/2015 Bronchiectasis ([facility]) 01/01/2015 COPD (chronic obstructive pulmonary disease) ([facility]) 01/01/2015 HLD (hyperlipidemia) 01/01/2015 HTN (hypertension) 01/01/2015 Weight loss, abnormal 01/01/2015 Peripheral neuropathy 01/01/2015 PVD (peripheral vascular disease) ([facility]) 01/01/2015 Spinal stenosis 01/01/2015 Fever 01/01/2015 Abscess of groin, left 01/01/2015 Encounters Date Type Specialty Care Team Description 01/23/2017 Emergency Emergency [facility] Fall, initial encounter (Primary Dx);Injury of head, initial encounter;Injury of right hand, initial encounter;Injury of left knee, initial encounter;Injury of right hip, initial encounter;CLL (chronic lymphocytic leukemia) ([facility]) after 2016 Social History Tobacco Use Types Packs/Day Years Used Date Former Smoker Comments: quit 50 years ago Alcohol Use Drinks/Week oz/Week Comments No Sex Assigned at Date Recorded Not on file Last Filed Vital Signs Vital Sign Reading Time Taken Blood Pressure 150/80 01/23/2017 3:30 PM MIXING MACHINE TENDER CORK GASKET Pulse 72 01/23/2017 3:30 PM MIXING MACHINE TENDER CORK GASKET Temperature 37 C (98.6 F) 01/23/2017 11:24 AM MIXING MACHINE TENDER CORK GASKET Respiratory Rate 18 01/23/2017 11:24 AM MIXING MACHINE TENDER CORK GASKET Oxygen Saturation 97% 01/23/2017 3:30 PM MIXING MACHINE TENDER CORK GASKET Inhaled Oxygen - - Concentration Weight - - Height - - Body Mass Index - - Plan of Treatment Not on file Implants Implanted Type Area Stone Operator Device Expiration Model / Identifier Date Serial / Lot Mesh Otto Flat Sht 1x4in [id number] - Mesh Left: CR BARD:DAVOL [id number] 04/27/2019 [id number] / [id number] Groin [id number] / Implanted: Qty: 1 on 06/06/2016 by [id number] Contreras Renee MD Results * CT brain [...] MD Report Verified Date/Time:01/23/2017 15:19:20 Reading Location: [address] Neuro Reading Room Procedure Note Interface, External Ris In - 01/23/2017 3:21 PM MIXING MACHINE TENDER CORK GASKET FINAL REPORT CT head without contrast 01/23/2017 [...] Report Verified Date/Time: 01/23/2017 15:19:20 Reading Location: [facility] C013V Neuro Reading Room * XR hand [...] MD Report Verified Date/Time:01/23/2017 14:12:23 Reading Location: [facility] C013X Ortho Consult Reading Room Procedure Note Interface, External Ris In - 01/23/2017 2:56 PM MIXING MACHINE TENDER CORK GASKET FINAL REPORT INDICATION: Right hand pain after [...] Report Verified Date/Time: 01/23/2017 14:12:23 Reading Location: [facility] C013X Ortho Consult Reading Room * XR [...] MD Report Verified Date/Time:01/23/2017 14:01:34 Reading Location: [address] Body Reading Room Procedure Note Interface, External Ris In - 01/23/2017 2:03 PM MIXING MACHINE TENDER CORK GASKET FINAL REPORT Left femur dated 01/23/2017 Clinical [...] Report Verified Date/Time: 01/23/2017 14:01:34 Reading Location: [facility] C013Y CT Body Reading Room * XR [...] MD Report Verified Date/Time:01/23/2017 14:01:34 Reading Location: [facility] C013Y CT Body Reading Room Procedure Note Interface, External Ris In - 01/23/2017 2:03 PM MIXING MACHINE TENDER CORK GASKET FINAL REPORT Left femur dated 01/23/2017 Clinical [...] Report Verified Date/Time: 01/23/2017 14:01:34 Reading Location: [facility] C0Y CT Body Reading Room * XR [...] MD Report Verified Date/Time:01/23/2017 14:01:34 Reading Location: [facility] C0Y CT Body Reading Room Procedure Note Interface, External Ris In - 01/23/2017 2:03 PM MIXING MACHINE TENDER CORK GASKET FINAL REPORT Left femur dated 01/23/2017 Clinical [...] Report Verified Date/Time: 01/23/2017 14:01:34 Reading Location: [facility] B1 C013Y CT Body Reading Room [...] MD Report Verified Date/Time:01/23/2017 14:01:34 Reading Location: [address] Body Reading Room Procedure Note Interface, External Ris In - 01/23/2017 2:03 PM MIXING MACHINE TENDER CORK GASKET FINAL REPORT Left femur dated 01/23/2017 Clinical [...] Report Verified Date/Time: 01/23/2017 14:01:34 Reading Location: [facility] B1 C013Y CT Body Reading Room after 2016
[2017-07-17] MEDS ORDERED: SODIUM CHLORIDE 0.9% 1000ML 1,000 ML IV STA (18:02)
[2017-07-17 18:10] LABS: EOSINOPHILS # (AUTO) 0.1 (0.0-0.4); HEMATOCRIT 30.4 % (38.2-49.6); HEMOGLOBIN 8.4 g/dL (14.0-18.0); LYMPHOCYTES # (AUTO) 204.5 (1.0-3.2); LYMPHOCYTES % 96.5 % (18.0-39.1); MEAN CORPUSCULAR HEMOGLOBIN 26.7 pg (28-32); MEAN CORPUSCULAR HGB CONC 27.6 g/dL (31-35); MEAN CORPUSCULAR VOLUME 96.5 fL (81-99); MONOCYTES # (AUTO) 0.2 (0.2-0.8); MONOCYTES % 0.1 % (4.4-11.3); NEUTROPHILS # (AUTO) 6.8 (2.1-6.9); NEUTROPHILS % 3.2 % (38.7-80.0); PLATELET COUNT 194 x10e3/uL (140-360); RED BLOOD COUNT 3.15 x10e6/uL (4.3-5.7); RED CELL DISTRIBUTION WIDTH 28.3 % (11.7-14.4)
[2017-07-17 18:24] LABS: ALANINE AMINOTRANSFERASE 52 IU/L (0-55); ALBUMIN 2.5 g/dL (3.5-5.0); ALBUMIN/GLOBULIN RATIO 0.9 (0.8-2.0); ALKALINE PHOSPHATASE 284 IU/L (40-150); ANION GAP 16.2 mmol/L (8-16); BLOOD UREA NITROGEN 15 mg/dL (7-26); BUN/CREATININE RATIO 24 (6-25); CALCIUM 8.2 mg/dL (8.4-10.2); CARBON DIOXIDE 23 mmol/L (22-29); CHLORIDE 97 mmol/L (98-107); CREATINE KINASE 32 IU/L (30-200); CREATININE, SERUM 0.63 mg/dL (0.72-1.25); EST GLOMERULAR FILTRATION RATE > 60 ML/MIN (60-); GLUCOSE 138 mg/dL (74-118); POTASSIUM 4.2 mmol/L (3.5-5.1); SODIUM 132 mmol/L (136-145)
[2017-07-17 18:27] LABS: LYMPHOCYTES % (MANUAL) 96 % (19-48); NEUTROPHILS % (MANUAL) 4 % (40-74)
[2017-07-17 18:28] LABS: ANISOCYTOSIS MODERATE; HYPOCHROMASIA MODERATE; PLATELET ESTIMATE ADEQUATE; PLATELET MORPHOLOGY COMMENT FEW LARGE; POIKILOCYTOSIS MODERATE; RBC MORPHOLOGY COMMENT ABNORMAL; SMUDGE CELLS MODERATE
[2017-07-17] MEDS ORDERED: LEVOFLOXACIN 750MG/D5W 150ML 150 ML IV NR (18:53)
--- NOTE | 2017-07-17 18:54 | Diagnostic Imaging Report ---
Portable chest x-ray INDICATION: Chronic chest pain COMPARISON: Chest x-ray 06/25/2017 FINDINGS: Frontal view of the chest obtained at 1814 hours. The cardiac silhouette is enlarged and stable in morphology. The pulmonary vascular markings are normal. The lungs demonstrate bilateral pleural effusions and bibasilar atelectasis/infiltrate. Pulmonary vascular markings are normal. There is no pneumothorax. The osseous structures are intact and normal in morphology. IMPRESSION: 1. Bibasilar pleural effusions and underlying atelectasis/infiltrate. 2. Stable cardiomegaly. No vascular congestion. Signed by: Dr. Luz Maria Ford MD on 07/17/2017 6:50 PM
[2017-07-17] MEDS ORDERED: CEFTRIAXONE SOD 1 GM VIAL IV SCH (19:00)
[2017-07-17] MEDS: SODIUM CHLORIDE 0.9% 1000ML 1,000 ML IV SCH (19:41)
[2017-07-17] MEDS: ALBUTEROL SULF 0.083% NEB SOLN 3 ML NEB NEB SCH ×2 (19:52→23:00)
[2017-07-17] MEDS: IPRATROPIUM BROMIDE 0.02% 2.5 ML NEB NEB SCH (19:52)
--- OUTSIDE RECORDS SUMMARY | 2017-07-17 21:00 | XMS REPORT | Clinical Summary ---
Author Author DAISY [place] [facility] [facility]Car[facility] Address Unknown Phone Unavailable Care Team Providers Care Engine Watchman Name Role Phone PCP Unavailable Allergies No [...] inguinal hernia 06/06/2016 CLL (chronic lymphocytic leukemia) ([facility]) 01/01/2015 Bronchiectasis ([facility]) 01/01/2015 COPD (chronic obstructive pulmonary disease) ([facility]) 01/01/2015 HLD (hyperlipidemia) 01/01/2015 HTN (hypertension) 01/01/2015 Weight loss, abnormal 01/01/2015 Peripheral neuropathy 01/01/2015 PVD (peripheral vascular disease) ([facility]) 01/01/2015 Spinal stenosis 01/01/2015 Fever 01/01/2015 Abscess of groin, left 01/01/2015 Encounters Date Type Specialty Care Team Description 01/23/2017 [facility] Fall, initial encounter (Primary Dx);Injury of head, initial encounter;Injury of right hand, initial encounter;Injury of left knee, initial encounter;Injury of right hip, initial encounter;CLL (chronic lymphocytic leukemia) ([facility]) after 2016 Social History Tobacco Use Types Packs/Day Years Used Date Former Smoker Comments: quit 50 years ago Alcohol Use Drinks/Week oz/Week Comments No Sex Assigned at Date Recorded Not on file Last Filed Vital Signs Vital Sign Reading Time Taken Blood Pressure 150/80 01/23/2017 3:30 PM BRIDGE MAINTAINER Pulse 72 01/23/2017 3:30 PM BRIDGE MAINTAINER Temperature 37 C (98.6 F) 01/23/2017 11:24 AM BRIDGE MAINTAINER Respiratory Rate 18 01/23/2017 11:24 AM BRIDGE MAINTAINER Oxygen Saturation 97% 01/23/2017 3:30 PM BRIDGE MAINTAINER Inhaled Oxygen - - Concentration Weight - - Height - - Body Mass Index - - Plan of Treatment Not on file Implants Implanted Type Area Plater Printed Circuit Board Panels Device Expiration Model / Identifier Date Serial / Lot Mesh Otto Flat Sht 1x4in [id number] - Mesh Left: CR BARD:DAVOL [id number] 04/27/2019 [id number] / [id number] Groin [id number] / Implanted: Qty: 1 on 06/06/2016 by [id number] Contreras Renee MD Results * CT brain [...] MD Report Verified Date/Time:01/23/2017 15:19:20 Reading Location: [address] Neuro Reading Room Procedure Note Interface, External Ris In - 01/23/2017 3:21 PM BRIDGE MAINTAINER FINAL REPORT CT head without contrast 01/23/2017 [...] Report Verified Date/Time: 01/23/2017 15:19:20 Reading Location: [facility] C013V Neuro Reading Room * [...] MD Report Verified Date/Time:01/23/2017 14:12:23 Reading Location: [facility] C013X Ortho Consult Reading Room Procedure Note Interface, External Ris In - 01/23/2017 2:56 PM BRIDGE MAINTAINER FINAL REPORT INDICATION: Right hand pain after [...] Report Verified Date/Time: 01/23/2017 14:12:23 Reading Location: [facility] C013X Ortho Consult Reading Room [...] MD Report Verified Date/Time:01/23/2017 14:01:34 Reading Location: [address] Body Reading Room Procedure Note Interface, External Ris In - 01/23/2017 2:03 PM BRIDGE MAINTAINER FINAL REPORT Left femur dated 01/23/2017 Clinical [...] Report Verified Date/Time: 01/23/2017 14:01:34 Reading Location: [facility] C013Y CT Body Reading Room [...] MD Report Verified Date/Time:01/23/2017 14:01:34 Reading Location: [facility] C013Y CT Body Reading Room Procedure Note Interface, External Ris In - 01/23/2017 2:03 PM BRIDGE MAINTAINER FINAL REPORT Left femur dated 01/23/2017 Clinical [...] Report Verified Date/Time: 01/23/2017 14:01:34 Reading Location: [facility] C0Y CT Body Reading Room [...] MD Report Verified Date/Time:01/23/2017 14:01:34 Reading Location: [facility] C0Y CT Body Reading Room Procedure Note Interface, External Ris In - 01/23/2017 2:03 PM BRIDGE MAINTAINER FINAL REPORT Left femur dated 01/23/2017 Clinical [...] Report Verified Date/Time: 01/23/2017 14:01:34 Reading Location: [facility] B1 C013Y CT Body Reading Room * [...] MD Report Verified Date/Time:01/23/2017 14:01:34 Reading Location: [address] Body Reading Room Procedure Note Interface, External Ris In - 01/23/2017 2:03 PM BRIDGE MAINTAINER FINAL REPORT Left femur dated 01/23/2017 Clinical [...] Report Verified Date/Time: 01/23/2017 14:01:34 Reading Location: [facility] B1 C013Y CT Body Reading Room after 2016
[2017-07-17 21:04] VITALS: BP 127/79
[2017-07-17] MEDS: HYDROCODONE/APAP 10MG-325MG TAB PO PRN (22:30)
[2017-07-18] VITALS (8 sets, daily range): BP systolic 116–154; BP diastolic 67–86
[2017-07-18] MEDS: PIPER-TAZ 3.375 GM 50 ML IV SCH ×2 (00:01→05:09)
[2017-07-18] MEDS: SODIUM CHLORIDE 0.9% 1000ML 1,000 ML IV SCH (00:25)
[2017-07-18] MEDS: IPRATROPIUM BROMIDE 0.02% 2.5 ML NEB NEB SCH ×7 (01:30→23:36)
[2017-07-18] MEDS: ALBUTEROL SULF 0.083% NEB SOLN 3 ML NEB NEB SCH ×7 (01:30→23:36)
[2017-07-18 02:29] LABS: CREATINE KINASE MB 1.1 ng/mL (0-5.0)
--- NOTE | 2017-07-18 06:58 | Diagnostic Imaging Report ---
EXAMINATION: CHEST SINGLE (PORTABLE) INDICATION: Pneumonia. COMPARISON: 07/17/2017 FINDINGS: TUBES and LINES: None. LUNGS: Lungs are not well inflated. There are bibasilar atelectasis. There is perihilar interstitial opacities, consistent with interstitial edema. PLEURA: Small bilateral pleural effusions are stable. HEART AND MEDIASTINUM: Cardiac size is mildly enlarged. There are atherosclerotic calcifications within the aorta. BONES AND SOFT TISSUES: No acute osseous lesion. Partially visualized degenerative changes of the right glenohumeral joint. Soft tissues are unremarkable. UPPER ABDOMEN: No free air under the diaphragm. IMPRESSION: Evidence of pulmonary edema and small bilateral pleural effusions. Bilateral basilar atelectasis. Superimposed infection cannot be excluded. Signed by: Dr. Rex Tate M.D. on 07/18/2017 6:54 AM
[2017-07-18 07:07] LABS: HEMATOCRIT 29.3 % (38.2-49.6); HEMOGLOBIN 8.1 g/dL (14.0-18.0); LYMPHOCYTES # (AUTO) 185.6 (1.0-3.2); LYMPHOCYTES % 96.2 % (18.0-39.1); MEAN CORPUSCULAR HEMOGLOBIN 26.8 pg (28-32); MEAN CORPUSCULAR HGB CONC 27.6 g/dL (31-35); MONOCYTES # (AUTO) 0.1 (0.2-0.8); MONOCYTES % 0.1 % (4.4-11.3); NEUTROPHILS # (AUTO) 6.8 (2.1-6.9); NEUTROPHILS % 3.5 % (38.7-80.0); PLATELET COUNT 169 x10e3/uL (140-360); RED BLOOD COUNT 3.02 x10e6/uL (4.3-5.7); RED CELL DISTRIBUTION WIDTH 28.3 % (11.7-14.4)
[2017-07-18 07:38] LABS: ANION GAP 13.7 mmol/L (8-16); BLOOD UREA NITROGEN 13 mg/dL (7-26); BUN/CREATININE RATIO 19 (6-25); CARBON DIOXIDE 24 mmol/L (22-29); CHLORIDE 100 mmol/L (98-107); CREATININE, SERUM 0.67 mg/dL (0.72-1.25); EST GLOMERULAR FILTRATION RATE > 60 ML/MIN (60-); GLUCOSE 140 mg/dL (74-118); POTASSIUM 4.7 mmol/L (3.5-5.1); SODIUM 133 mmol/L (136-145)
[2017-07-18 09:34] LABS: LYMPHOCYTES % (MANUAL) 98 % (19-48); NEUTROPHILS % (MANUAL) 2 % (40-74)
[2017-07-18 09:35] LABS: ANISOCYTOSIS MODERATE; HYPOCHROMASIA MODERATE; POIKILOCYTOSIS MODERATE; RBC MORPHOLOGY COMMENT ABNORMAL
[2017-07-18 09:36] LABS: PLATELET MORPHOLOGY COMMENT NORMAL; SMUDGE CELLS FEW
[2017-07-18 09:37] LABS: PLATELET ESTIMATE ADEQUATE
[2017-07-18 10:42] LABS: CREATINE KINASE MB 0.9 ng/mL (0-5.0)
[2017-07-18] MEDS ORDERED: VANCOMYCIN 1GM/NS 250 ML 250 ML IV ONE (10:45)
[2017-07-18] MEDS: HYDROCODONE/APAP 10MG-325MG TAB PO PRN ×2 (10:47→21:37)
[2017-07-18] MEDS ORDERED: FUROSEMIDE INJ 10 MG/ML 2 ML VIAL IV NR (11:00)
[2017-07-18] MEDS ORDERED: PREDNISONE 20 MG TAB PO NR (12:30)
[2017-07-18] MEDS: CEFEPIME HCL 1 GM VIAL IV SCH ×2 (12:44→21:36)
[2017-07-18] MEDS: DOXYCYCLINE 100MG/NS 100ML 100 ML IV SCH (14:01)
--- NOTE | 2017-07-18 14:04 | Consultation ---
DATE OF CONSULTATION: July 18, 2017 REASON FOR CONSULTATION: Tachycardia, inverted T waves on EKG. HPI: This is an 82-year-old male with a history of chronic lymphocytic leukemia not on any treatment, hypertension, CHF, dementia, hyperlipidemia, questionable COPD. Apparently the patient was transferred from [facility] to [facility] with complaints of shortness of breath, fevers, chills. The patient was noted to be tachycardic. Cardiology was consulted to evaluate the patient. On review of records, the patient was recently at [facility] status post fall. He apparently had some fevers and leukocytosis, with a white count of greater than 100,000. He was treated on antibiotic therapy and then sent back to [facility]. However, at [facility], the patient was noted with shortness of breath and cough and, therefore, was brought to [facility] ER. Apparently, he had complaints again of cough and shortness of breath, productive in nature. The patient was seen in the room. Reports a productive cough for the last several days to weeks with fevers and chills. He currently denies any chest pain. PAST MEDICAL HISTORY: Hypertension, CHF, dementia, hyperlipidemia, chronic lymphocytic leukemia, COPD. SURGICAL HISTORY: Appendectomy. SOCIAL HISTORY: Apparently lives at [facility]. No alcohol. No tobacco use. FAMILY HISTORY: Positive for hypertension. ALLERGIES: NO KNOWN ALLERGIES. MEDICATION LIST 1. Aspirin 81 mg once a day. 2. Gabapentin 100 mg 3 times a day. 3. Omeprazole 20 mg daily. 4. Folic acid 1 mg daily. 5. Lisinopril 20 mg daily. 6. Aricept 10 mg daily. 7. Simvastatin 10 mg daily. REVIEW OF SYSTEMS GENERAL: Positive for fatigue, weakness, fevers, chills. SKIN: No rashes or sores. HEENT: No vision changes. No blurred vision, double vision, tinnitus, earaches, runny nose, sore throat, epistaxis. CHEST: Denies any chest pain. Positive for palpitations. Positive for dyspnea on exertion. Positive for orthopnea. RESPIRATORY: Positive for shortness of breath. Positive for productive cough, yellowish to [place]. Denies any hemoptysis. GI: Poor appetite. No nausea, vomiting, diarrhea or constipation. URINARY: Positive for frequency and urgency. VASCULAR: No leg edema or claudication. MUSCULOSKELETAL: Positive for generalized muscle weakness and generalized joint pains. NEUROLOGIC: Denies any numbness or tingling. Positive for tremors. Positive for weakness. No blackouts or seizures. HEMATOLOGY: Positive for bruising. ENDOCRINE: Denies any heat or cold intolerance. No polyuria, polydipsia or polyphagia. PHYSICAL EXAMINATION VITAL SIGNS: Height 72 inches, weight 151 pounds. Temperature initially 100.4, pulse 111, blood pressure 154/81, pulse ox 94% on 3 L nasal cannula. GENERAL: He appears his stated age, in no acute distress. SKIN: No rashes or bruises. HEENT: Normocephalic. Pupils are equal and reactive. Extraocular motor intact. Trachea is midline. Positive for JVD. Positive for carotid bruit. CARDIOVASCULAR: Regular rate and rhythm. Positive S1 and S2 plus systolic murmur at right upper sternal border. LUNGS: Poor air flow throughout with crackles in the bases. ABDOMEN: Soft. Nontender. No organomegaly noted. EXTREMITIES: Warm with +1 lower extremity edema. VASCULAR: Has +2 bilateral radial pulses and +1 DP and PT pulses. NEUROLOGIC: Cranial nerves II through XII seem intact. LABS: White count 192, hemoglobin 8.4, hematocrit 29, platelets 169. Sodium 133, potassium 4.7, chloride 100, bicarb 24, BUN 13, creatinine 0.67, glucose 140. Chest x-ray showing bilateral pleural effusions and some atelectasis and infiltrates. No vascular congestion. ASSESSMENT AND PLAN 1. Given recent hospitalization, hospital-acquired pneumonia. 2. Chronic lymphocytic leukemia. 3. Severe leukocytosis with white count greater than 200 initially. 4. Anemia. 5. Chronic systolic heart failure. 6. Dementia. 7. Debility. Plan-swartz, the patient presents with shortness of breath and cough productive in nature with fevers and chills. He was recently admitted at [facility]. Being treated for hospital-acquired pneumonia. Regarding the patient's systolic heart failure, it seems compensated at this time. Will continue his heart failure therapy including Lasix and LUISA inhibitor and will caution with beta vladimir therapy due to his wheezing on exam. Regarding the patient's tachycardia, this is secondary to his underlying issues of pneumonia and other illnesses. For now, the patient will be treated medically from a cardiac standpoint. Thank you very much for this consult. We will follow the patient and adjust cardiac therapy as course dictates. Dictated by: Shay Bran NP Job#: [id number] MH
[2017-07-18] MEDS: FUROSEMIDE INJ 10 MG/ML 4 ML VIAL IV SCH (17:30)
[2017-07-18] MEDS: CARVEDILOL 3.125 MG TAB PO SCH (17:30)
[2017-07-18] MEDS: ACETAMINOPHEN 325 MG TAB PO PRN (17:30)
--- NOTE | 2017-07-18 18:42 | Consultation ---
DATE OF CONSULTATION: July 18, 2017 PULMONARY MEDICINE CONSULT REFERRING PHYSICIAN: Dr. Harman Patient belongs to [facility]. HISTORY: Mr. Rodas is a pleasant 82-year-old gentleman with shortness of breath. Patient was admitted on July 17, 2017. Patient had complained of dyspnea on exertion. He had associated cough. Unclear what kind of phlegm he had but there was something that he would intermittently cough up. When the patient came to the emergency room, chest x-ray demonstrated bibasilar opacities, effusion, possible pneumonia. At this point the patient was elected for inpatient admission. X-ray when compared to previous was significantly worse than last x-ray a few months ago in our system. Currently he is on 98% oxygen on 3 liters per minute by nasal cannula. However he is very weak. PAST MEDICAL HISTORY: Hypertension, dyslipidemia, CLL, intermittent allergies, recent diagnosis of congestive heart failure systolic. May 10, 2017 echocardiogram showed LVEF of 30% to 35% with aortic valve area of 1.8 cm squared, unable to estimate RVSP. MEDICATIONS: Medication list reviewed from the chart record. Currently he is normal saline, vancomycin, acetaminophen, cefepime, albuterol, Tylenol with hydrocodone. ALLERGIES: NO KNOWN DRUG ALLERGIES. FAMILY HISTORY: Noncontributory. SOCIAL HISTORY: Patient denies drinking, denies drugs. Patient is a past smoker from age 21 to age 27, one pack per day. 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 He ambulates using a cane recently but he also had another hospitalization and was sent to a [facility] facility with some debility. REVIEW OF SYSTEMS GENERAL: Denies weight changes. OPHTHALMOLOGIC: No double vision. ENT: No dry mouth. PULMONARY: No definite asthma. CARDIAC: No recent heart attacks known. GI: No constipation. : No blood in urine. INTEGUMENT: No rashes. NEUROLOGIC: No seizures. PSYCHIATRIC: No depression although he does feel some irritability. OBJECTIVE VITAL SIGNS: Afebrile, vital signs noted per the chart record. T max so far has been 100.3. GENERAL: In bed, calm, not wanting to interact too much. HEENT: Normocephalic, atraumatic. NECK: Supple. Throat midline. LUNGS: Bilateral air entry, few rhonchi. CARDIOVASCULAR: S1, S2. No murmurs, rubs, or gallops. ABDOMEN: Soft, nontender. EXTREMITIES: No clubbing, no cyanosis, there is no edema. INTEGUMENT: No rash, no purpura. LABS: Labs reviewed per the chart record. Include 11 BUN, creatinine 0.7. Potassium 4.7, 192 white count, 29 hematocrit, 169 platelets. IMPRESSION AND PLAN 1. Abnormal chest radiography, fluid overload. 2. Abnormal chest radiography, likely pleural effusion. 3. Treat for pneumonia. 4. Systolic cardiomyopathy. 5. Hypoxemia. 6. Debility. 7. History of chronic lymphocytic leukemia. Cannot rule out early leukostasis syndrome. 8. Intermittent allergies. 9. Dyslipidemia. 10. Hypertension. 11. Minimal smoker in the past. Continue antibiotics for possible pneumonia. Diuresis will be escalated now. IV fluids were already stopped by other physician which I agree with. Will check electrolytes in the morning. Ensure the pleural effusions do not go up on serial chest radiography or else he may need thoracentesis in the future. Will follow along closely. Thank you very much Dr. Harman for this consult. Please call for questions. Job#: [id number] JOSE
[2017-07-19] VITALS (9 sets, daily range): BP systolic 97–161; BP diastolic 54–95
[2017-07-19] MEDS: DOXYCYCLINE 100MG/NS 100ML 100 ML IV SCH ×2 (01:00→13:37)
[2017-07-19] MEDS: IPRATROPIUM BROMIDE 0.02% 2.5 ML NEB NEB SCH ×4 (02:26→19:40)
[2017-07-19] MEDS: ALBUTEROL SULF 0.083% NEB SOLN 3 ML NEB NEB SCH ×4 (02:26→19:40)
[2017-07-19] MEDS: CEFEPIME HCL 1 GM VIAL IV SCH ×3 (06:02→22:00)
[2017-07-19] MEDS: BENZONATATE 100 MG CAP PO PRN ×2 (06:49→16:53)
--- NOTE | 2017-07-19 06:49 | Diagnostic Imaging Report ---
EXAM: CHEST SINGLE (PORTABLE), AP 1 view INDICATION: Shortness of breath COMPARISON: AP view of the chest July 18, 2017 FINDINGS: LINES/TUBES: None LUNGS: Interstitial edema and bibasilar atelectasis. PLEURA: Small to moderate bilateral layering pleural effusions. HEART AND MEDIASTINUM: Stable appearance. BONES AND SOFT TISSUES: No acute findings. IMPRESSION: No significant interval change. Signed by: Dr. Olamide Banks M.D. on 07/19/2017 6:46 AM
[2017-07-19 07:07] LABS: HEMATOCRIT 32.3 % (38.2-49.6); LYMPHOCYTES # (AUTO) 214.8 (1.0-3.2); LYMPHOCYTES % 95.9 % (18.0-39.1); MEAN CORPUSCULAR HEMOGLOBIN 27.1 pg (28-32); MEAN CORPUSCULAR HGB CONC 27.9 g/dL (31-35); MEAN CORPUSCULAR VOLUME 97.3 fL (81-99); MONOCYTES # (AUTO) 0.2 (0.2-0.8); MONOCYTES % 0.1 % (4.4-11.3); NEUTROPHILS # (AUTO) 8.3 (2.1-6.9); NEUTROPHILS % 3.7 % (38.7-80.0); PLATELET COUNT 177 x10e3/uL (140-360); RED BLOOD COUNT 3.32 x10e6/uL (4.3-5.7); RED CELL DISTRIBUTION WIDTH 28.5 % (11.7-14.4)
[2017-07-19 07:35] LABS: ANION GAP 14.5 mmol/L (8-16); BLOOD UREA NITROGEN 13 mg/dL (7-26); BUN/CREATININE RATIO 18 (6-25); CALCIUM 8.7 mg/dL (8.4-10.2); CARBON DIOXIDE 27 mmol/L (22-29); CHLORIDE 96 mmol/L (98-107); CREATININE, SERUM 0.74 mg/dL (0.72-1.25); EST GLOMERULAR FILTRATION RATE > 60 ML/MIN (60-); GLUCOSE 132 mg/dL (74-118); MAGNESIUM 1.9 MG/DL (1.3-2.1); POTASSIUM 4.5 mmol/L (3.5-5.1); SODIUM 133 mmol/L (136-145)
[2017-07-19 08:28] LABS: LYMPHOCYTES % (MANUAL) 95 % (19-48); MONOCYTES % (MANUAL) 1 % (3.4-9.0); NEUTROPHILS % (MANUAL) 4 % (40-74)
[2017-07-19 08:29] LABS: ANISOCYTOSIS MODERATE; HYPOCHROMASIA SLIGHT; PLATELET ESTIMATE ADEQUATE; RBC MORPHOLOGY COMMENT ABNORMAL
[2017-07-19] MEDS ORDERED: FUROSEMIDE INJ 10 MG/ML 2 ML VIAL IV SCH (09:00)
[2017-07-19] MEDS: FUROSEMIDE INJ 10 MG/ML 4 ML VIAL IV SCH ×3 (09:11→22:00)
[2017-07-19] MEDS: HYDROCODONE/APAP 10MG-325MG TAB PO PRN ×2 (09:12→16:54)
[2017-07-19] MEDS: CARVEDILOL 3.125 MG TAB PO SCH ×2 (09:12→16:53)
[2017-07-19] MEDS: LISINOPRIL 10 MG TAB PO SCH (09:12)
[2017-07-19] MEDS ORDERED: CARVEDILOL 3.125 MG TAB PO SCH (09:45)
[2017-07-19] MEDS ORDERED: CARVEDILOL 3.125 MG TAB PO NR (10:15)
--- NOTE | 2017-07-19 12:47 | Progress Note ---
DATE: July 19, 2017 PULMONARY MEDICINE PROGRESS NOTE SUBJECTIVE: Mr. Rodas was seen and examined at bedside. He continues to have significant improvement. He feels less dyspnea. Blood pressure maintained in the 160s range. However, heart rates are often in the 110s to 120s as well. Patient continues to get escalation of some cardiac medications, and Lasix has been increased as well. Patient feels like he may want to start eating again today. REVIEW OF SYSTEMS: No bleeding. No diarrhea. OBJECTIVE VITAL SIGNS: Afebrile, vital signs noted per the electronic record. GENERAL: In no acute distress, alert, calm, more energy. HEENT: Normocephalic, atraumatic. NECK: Supple. Throat midline. LUNGS: Bilateral air entry, mild wheezes, mild crackles today, better than yesterday. CARDIOVASCULAR: S1, S2. No murmurs, rubs, or gallops. ABDOMEN: Soft, nontender. EXTREMITIES: No clubbing, no cyanosis. There is only trace edema. INTEGUMENT: No rash, no purpura. LABS: White count 223, 32 hematocrit, 177 platelets, 4.5 potassium, 27 bicarbonate, 13 BUN, 0.2 creatinine. BNP is 3818. Blood cultures are still no growth today x2. Chest x-ray is stable bilateral mild edema with mild to moderate effusions, larger on the right side. IMPRESSION AND PLAN 1. Predominant fluid overload. 2. Possible pneumonia, superimposed. 3. Pleural effusion. 4. Chronic lymphocytic leukemia. 5. Systolic cardiomyopathy. 6. Weakness. Continue diuretic. This was increased. Continue cardiac medications. Follow up electrolytes and replete as needed. The patient and the family will be considering hospice; but for the meantime, will continue aggressive treatment until they finalize. Diet: As much as possible. Job#: [id number]
[2017-07-20] VITALS (8 sets, daily range): BP systolic 92–157; BP diastolic 55–85
[2017-07-20] MEDS: DOXYCYCLINE 100MG/NS 100ML 100 ML IV SCH ×2 (01:07→13:58)
[2017-07-20] MEDS: ALBUTEROL SULF 0.083% NEB SOLN 3 ML NEB NEB SCH ×5 (02:00→21:30)
[2017-07-20] MEDS: IPRATROPIUM BROMIDE 0.02% 2.5 ML NEB NEB SCH ×5 (02:00→21:30)
[2017-07-20] MEDS: FUROSEMIDE INJ 10 MG/ML 4 ML VIAL IV SCH ×2 (05:23→13:58)
[2017-07-20] MEDS: CEFEPIME HCL 1 GM VIAL IV SCH ×3 (05:23→22:13)
--- NOTE | 2017-07-20 06:39 | Diagnostic Imaging Report ---
EXAM: CHEST SINGLE (PORTABLE), AP 1 view INDICATION: Congestive heart failure COMPARISON: AP view of the chest July 19, 2017 FINDINGS: LINES/TUBES: None LUNGS: Stable edema and bibasilar atelectasis. PLEURA: Small to moderate bilateral layering pleural effusions. HEART AND MEDIASTINUM: Stable appearance. BONES AND SOFT TISSUES: No acute findings. IMPRESSION: Stable findings of fluid overload. Signed by: Dr. Olamide Banks M.D. on 07/20/2017 6:36 AM
[2017-07-20 07:44] LABS: ANION GAP 13.5 mmol/L (8-16); BLOOD UREA NITROGEN 12 mg/dL (7-26); BUN/CREATININE RATIO 17 (6-25); CALCIUM 8.4 mg/dL (8.4-10.2); CARBON DIOXIDE 30 mmol/L (22-29); CHLORIDE 94 mmol/L (98-107); EST GLOMERULAR FILTRATION RATE > 60 ML/MIN (60-); GLUCOSE 125 mg/dL (74-118); MAGNESIUM 1.6 MG/DL (1.3-2.1); PHOSPHORUS 1.9 MG/DL (2.3-4.7); POTASSIUM 3.5 mmol/L (3.5-5.1); SODIUM 134 mmol/L (136-145)
[2017-07-20] MEDS: CARVEDILOL 3.125 MG TAB PO SCH ×2 (09:09→16:51)
[2017-07-20] MEDS: ACETAMINOPHEN 325 MG TAB PO PRN (09:09)
[2017-07-20] MEDS: LISINOPRIL 10 MG TAB PO SCH (09:09)
--- NOTE | 2017-07-20 11:47 | Progress Note ---
DATE: July 20, 2017 PULMONARY MEDICINE PROGRESS NOTE SUBJECTIVE: Mr. Rodas was seen and examined at bedside. He continues to have steady progress. He continues to have more and more energy. He is having energy to create decisions. His breathing is improving again. Two liters per minute by nasal cannula with 99% oxygen saturation. REVIEW OF SYSTEMS: No bleeding. No diarrhea. OBJECTIVE: Vitals are mostly unremarkable once again. LABS: Potassium 3.5, 12 BUN, 0.7 creatinine, 223 white count. IMPRESSION AND PLAN 1. Pulmonary edema. 2. Additional small to moderate pleural effusions. 3. Systolic cardiomyopathy. 4. Possible but less likely pneumonia. 5. Hypoxemia. 6. Debility. Patient and family will be deciding on the need for hospice. The patient's options are being reviewed. Continue diuresis with Lasix. Patient will have ultrasound of the chest in case he choses to have thoracentesis to be done. Will follow along closely. Job#: [id number]
--- NOTE | 2017-07-20 15:28 | Diagnostic Imaging Report ---
PROCEDURE:US CHEST (INCL MEDIASTINUM) COMPARISON:Patients [facility], DX, CHEST SINGLE (PORTABLE), 07/20/2017, 6:04. INDICATIONS:PLEURAL EFFUSION FINDINGS:Small right pleural effusion with largest pocket estimated 2.0 cm. Moderate to large left pleural effusion with largest pocket measurement of 5.9 cm. CONCLUSION:Small right and moderate to large volume left pleural effusion. Priscila Gray M.D. Dictated by: Priscila Gray M.D. on 07/20/2017 at 15:30 Electronically approved by: Priscila Gray M.D. on 07/20/2017 at 15:30
[2017-07-20] MEDS: HYDROCODONE/APAP 10MG-325MG TAB PO PRN (22:30)
[2017-07-21] VITALS (8 sets, daily range): BP systolic 94–146; BP diastolic 51–67
[2017-07-21] MEDS: DOXYCYCLINE 100MG/NS 100ML 100 ML IV SCH ×2 (01:05→12:13)
[2017-07-21] MEDS: ACETAMINOPHEN 325 MG TAB PO PRN (02:08)
[2017-07-21] MEDS: CEFEPIME HCL 1 GM VIAL IV SCH ×3 (05:09→21:54)
--- NOTE | 2017-07-21 06:49 | Diagnostic Imaging Report ---
EXAM: CHEST SINGLE (PORTABLE), AP 1 view INDICATION: Congestive heart failure COMPARISON: AP view of the chest July 20, 2017 FINDINGS: LINES/TUBES: None LUNGS: Slight decrease pulmonary edema. PLEURA: Stable small to moderate bilateral pleural effusions given differences in positioning. HEART AND MEDIASTINUM: Stable appearance. BONES AND SOFT TISSUES: No acute findings. IMPRESSION: Slight decrease in pulmonary edema, otherwise no significant interval change. Signed by: Dr. Olamide Banks M.D. on 07/21/2017 6:46 AM
[2017-07-21] MEDS: IPRATROPIUM BROMIDE 0.02% 2.5 ML NEB NEB SCH ×4 (07:15→19:25)
[2017-07-21] MEDS: ALBUTEROL SULF 0.083% NEB SOLN 3 ML NEB NEB SCH ×4 (07:15→19:25)
[2017-07-21 07:53] LABS: BLOOD UREA NITROGEN 10 mg/dL (7-26); BUN/CREATININE RATIO 18 (6-25); CALCIUM 8.1 mg/dL (8.4-10.2); CARBON DIOXIDE 32 mmol/L (22-29); CHLORIDE 91 mmol/L (98-107); CREATININE, SERUM 0.56 mg/dL (0.72-1.25); EST GLOMERULAR FILTRATION RATE > 60 ML/MIN (60-); GLUCOSE 115 mg/dL (74-118); MAGNESIUM 1.6 MG/DL (1.3-2.1); PHOSPHORUS 2.4 MG/DL (2.3-4.7); SODIUM 131 mmol/L (136-145)
[2017-07-21] MEDS: CARVEDILOL 3.125 MG TAB PO SCH ×2 (09:33→17:15)
[2017-07-21] MEDS: LISINOPRIL 10 MG TAB PO SCH (09:33)
[2017-07-21] MEDS: HYDROCODONE/APAP 10MG-325MG TAB PO PRN ×2 (12:42→22:12)
--- NOTE | 2017-07-21 13:01 | Progress Note ---
DATE: July 21, 2017 PULMONARY MEDICINE PROGRESS NOTE SUBJECTIVE: Mr. Rodas was seen and examined at bedside. Three liters per minute nasal cannula, 100% oxygen saturation. Patient continues with slight strengthening and is having a louder voice. Patient with 6 voids, no documented bowel movement. REVIEW OF SYSTEMS: No headaches, no double vision. OBJECTIVE VITAL SIGNS: Afebrile. Vital signs noted per chart record. GENERAL: No acute distress, alert, calm, slightly labile mood. HEENT: Normocephalic, atraumatic. NECK: Supple. Throat midline. LUNGS: Bilateral air entry, decreased breath sounds at base. CARDIOVASCULAR: S1, S2. No murmurs, rubs, or gallops. ABDOMEN: Soft, nontender. EXTREMITIES: No clubbing, no cyanosis. There is no significant edema. INTEGUMENT: No rash, no purpura. LABS: BUN 10, creatinine 0.6. Potassium 2.0. White count 223, hematocrit 32. IMPRESSION AND PLAN 1. Moderate to large left-sided pleural effusion. 2. Fluid overload. 3. Weakness. 4. Chronic lymphocytic leukemia. 5. Treat for possible pneumonia. At this time we recommend thoracentesis if they do not want hospice. Continue diuretics. Follow up electrolytes and we will have potassium repleted. Follow along closely. Cough medicine and nebulized treatments for comfort. Job#: [id number] JOSE
[2017-07-21] MEDS ORDERED: POTASSIUM CHLORIDE 20 MEQ TAB CR PO NR (14:15)
[2017-07-21] MEDS: FUROSEMIDE 40 MG TAB PO SCH (17:15)
[2017-07-22] VITALS (9 sets, daily range): BP systolic 106–134; BP diastolic 57–70
[2017-07-22] MEDS: IPRATROPIUM BROMIDE 0.02% 2.5 ML NEB NEB SCH ×7 (00:05→23:00)
[2017-07-22] MEDS: ALBUTEROL SULF 0.083% NEB SOLN 3 ML NEB NEB SCH ×6 (00:05→23:00)
[2017-07-22] MEDS: DOXYCYCLINE 100MG/NS 100ML 100 ML IV SCH ×2 (00:57→12:26)
[2017-07-22] MEDS: CEFEPIME HCL 1 GM VIAL IV SCH ×3 (05:45→22:27)
[2017-07-22] MEDS: FUROSEMIDE 40 MG TAB PO SCH ×2 (05:45→18:09)
[2017-07-22 07:14] LABS: INR 1.36; PROTHROMBIN TIME 15.8 seconds (11.9-14.5)
[2017-07-22 07:15] LABS: PARTIAL THROMBOPLASTIN TIME 34.9 seconds (23.8-35.5)
[2017-07-22 07:22] LABS: ANION GAP 10.6 mmol/L (8-16); BLOOD UREA NITROGEN 11 mg/dL (7-26); BUN/CREATININE RATIO 19 (6-25); CALCIUM 7.9 mg/dL (8.4-10.2); CARBON DIOXIDE 32 mmol/L (22-29); CHLORIDE 92 mmol/L (98-107); CREATININE, SERUM 0.59 mg/dL (0.72-1.25); EST GLOMERULAR FILTRATION RATE > 60 ML/MIN (60-); GLUCOSE 123 mg/dL (74-118); MAGNESIUM 1.5 MG/DL (1.3-2.1); PHOSPHORUS 2.1 MG/DL (2.3-4.7); POTASSIUM 3.6 mmol/L (3.5-5.1); SODIUM 131 mmol/L (136-145)
[2017-07-22] MEDS: CARVEDILOL 3.125 MG TAB PO SCH ×2 (09:00→18:09)
[2017-07-22] MEDS: LISINOPRIL 10 MG TAB PO SCH (09:00)
--- NOTE | 2017-07-22 12:13 | Progress Note ---
DATE: July 22, 2017 PULMONARY MEDICINE PROGRESS NOTE SUBJECTIVE: Mr. Rodas was seen and examined at bedside. He continues to have some dyspnea, but overall he is much better than before. The patient's blood pressure transiently dropped but remains more reasonable today. He does want to get a thoracentesis done, but they are still considering hospice. REVIEW OF SYSTEMS: No bleeding. No rash. OBJECTIVE VITAL SIGNS: Afebrile. Vital signs noted per electronic record. GENERAL: No acute distress, alert and calm. HEENT: Normocephalic, atraumatic. NECK: Supple. Throat midline. LUNGS: Bilateral air entry, decreased breath sounds especially on the left side much greater than right. A few rhonchi. CARDIOVASCULAR: S1, S2. No murmurs, rubs, or gallops. ABDOMEN: Soft, nontender. EXTREMITIES: No clubbing, no cyanosis. There is no edema. INTEGUMENT: No rash, no purpura. IMPRESSION AND PLAN 1. Fluid overload. 2. Large left-sided pleural effusion. 3. Treat for possible pneumonia. 4. Weakness. 5. Systolic cardiomyopathy, fluid overload, congestive heart failure. Thoracentesis today. At the same time, the family is considering hospice. Continue diuretics, which have been decreased compared to previous. Intermittent electrolytes are still indicated. We will follow along closely. Job#: [id number]
[2017-07-22] MEDS: HYDROCODONE/APAP 10MG-325MG TAB PO PRN (12:26)
[2017-07-22 14:44] LABS: BODY FLUID COLOR YELLOW; BODY FLUID TYPE PLEURAL
[2017-07-22 15:07] LABS: BODY FLUID APPEARANCE CLOUDY
--- NOTE | 2017-07-22 15:10 | Diagnostic Imaging Report ---
PROCEDURE:CHEST XRAY POST PROCEDURE TECHNIQUE:Portable AP chest totaling 2 radiographs INDICATION:Postthoracentesis COMPARISON:[facility], DX, CHEST SINGLE (PORTABLE), 07/21/2017, 6:30. FINDINGS: See conclusion. CONCLUSION: 1. Interval improvement in left thoracentesis with near complete evacuation of fluid and resolution of left lower lobe atelectasis. No pneumothorax. 2. Small right pleural effusion with adjacent airspace opacity consistent with atelectasis with or without pneumonia. 3. Stable cardiomediastinal silhouette, with normal heart size for technique. Dictated by: Joselito Miguel M.D. on 07/22/2017 at 15:12 Electronically approved by: Joselito Miguel M.D. on 07/22/2017 at 15:12
--- NOTE | 2017-07-22 15:14 | Diagnostic Imaging Report ---
Ultrasound-guided Thoracentesis 07/22/2017 Pre-Procedure Diagnosis: Left pleural effusion Post-procedure Diagnosis:Left pleural effusion Information Systems Operator: Skip Miguel Contact Clerk: None Sedation: None. 1% lidocaine local anesthesia. Estimate blood loss: <5 mL Blood administered: None Complications: None Implants/Grafts: None Specimen: 450 mL clear, straw-colored serous fluid. Procedure: Informed consent was obtained and the patient positioned right decubitus in the ultrasound suite. A timeout was performed, followed by preliminary ultrasound of the chest. The back was prepped and draped in standard sterile fashion. Using real-time ultrasound guidance a 5-Albanian one-step centesis needle was advanced into the left thoracic cavity. An image was stored in the electronic medical record. 450 mL serous fluid was aspirated. At the end of the procedure the catheter was removed and a sterile dressing applied. The patient tolerated the procedure well. No complications. Findings: Moderate volume left effusion. Impression: Successful ultrasound-guided left thoracentesis with removal of 450 mL of fluid. Samples were submitted for evaluation if requested by the referring clinician. This report was generated with voice-recognition technology. Errors in commission for the blind director can occur. Please interpret accordingly and contact a radiologist if there are any questions regarding the report. Centesis Signed by: Dr. Joselito Miguel M.D. on 07/22/2017 3:10 PM
--- NOTE | 2017-07-22 15:14 | Diagnostic Imaging Report ---
Ultrasound-guided Thoracentesis 07/22/2017 Pre-Procedure Diagnosis: Left pleural effusion Post-procedure Diagnosis:Left pleural effusion Upper Cutter: Skip Miguel Technical Services Representative: None Sedation: None. 1% lidocaine local anesthesia. Estimate blood loss: <5 mL Blood administered: None Complications: None Implants/Grafts: None Specimen: 450 mL clear, straw-colored serous fluid. Procedure: Informed consent was obtained and the patient positioned right decubitus in the ultrasound suite. A timeout was performed, followed by preliminary ultrasound of the chest. The back was prepped and draped in standard sterile fashion. Using real-time ultrasound guidance a 5-Danish one-step centesis needle was advanced into the left thoracic cavity. An image was stored in the electronic medical record. 450 mL serous fluid was aspirated. At the end of the procedure the catheter was removed and a sterile dressing applied. The patient tolerated the procedure well. No complications. Findings: Moderate volume left effusion. Impression: Successful ultrasound-guided left thoracentesis with removal of 450 mL of fluid. Samples were submitted for evaluation if requested by the referring clinician. This report was generated with voice-recognition technology. Errors in specialty finishing utility person can occur. Please interpret accordingly and contact a radiologist if there are any questions regarding the report. Centesis Signed by: Dr. Joselito Miguel M.D. on 07/22/2017 3:10 PM
[2017-07-22 15:16] LABS: RBC,BODY FLUID 43 cells/uL; WBC,BODY FLUID 69 cells/uL
[2017-07-22] MEDS: ACETAMINOPHEN 325 MG TAB PO PRN (16:01)
[2017-07-22 16:18] LABS: LYMPHOCYTES,BODY FLUID 22 %; MONO/MACROPHG,BODY FLUID 11 %; NEUTROPHILS,BODY FLUID 67 %
[2017-07-23] VITALS: BP 121/70
[2017-07-23] MEDS: DOXYCYCLINE 100MG/NS 100ML 100 ML IV SCH ×2 (00:29→13:02)
[2017-07-23] MEDS: IPRATROPIUM BROMIDE 0.02% 2.5 ML NEB NEB SCH ×6 (03:00→23:00)
[2017-07-23] MEDS: ALBUTEROL SULF 0.083% NEB SOLN 3 ML NEB NEB SCH ×6 (03:00→23:00)
[2017-07-23] MEDS: CEFEPIME HCL 1 GM VIAL IV SCH ×3 (06:15→21:35)
[2017-07-23] MEDS: FUROSEMIDE 40 MG TAB PO SCH (06:15)
[2017-07-23] MEDS: HYDROCODONE/APAP 10MG-325MG TAB PO PRN (06:15)
[2017-07-23 08:00] VITALS: BP 126/71
[2017-07-23] MEDS: LISINOPRIL 10 MG TAB PO SCH (08:40)
[2017-07-23] MEDS: CARVEDILOL 3.125 MG TAB PO SCH ×2 (08:40→17:10)
[2017-07-23 10:44] VITALS: BP 126/71
[2017-07-23 12:00] VITALS: BP 119/70
--- NOTE | 2017-07-23 15:24 | Progress Note ---
DATE: July 23, 2017 PULMONARY MEDICINE PROGRESS NOTE SUBJECTIVE: Mr. Rodas was seen and examined at bedside. The patient with 101.2 temperature maximum. There was 400 mL out by thoracentesis yesterday. So far it appears it is transudate. The patient is feeling better after this procedure. REVIEW OF SYSTEMS: No headache, no double vision. OBJECTIVE VITAL SIGNS: Afebrile. Vital signs noted per electronic record. GENERAL: In no apparent distress, alert and calm. HEENT: Normocephalic, atraumatic. NECK: Supple. Throat midline. LUNGS: Bilateral air entry, few crackles. CARDIOVASCULAR: S1 and S2 and no murmurs, rubs or gallops. ABDOMEN: Soft and nontender. EXTREMITIES: No cyanosis, clubbing or edema. INTEGUMENT: No rash, no purpura. LABORATORY DATA: LDH and total protein on the pleural fluid is very minimal. IMPRESSION 1. Fluid overload. 2. Pleural effusion. 3. Febrile syndrome, possible sepsis. 4. Chronic lymphocytic leukemia. PLAN: Continue IV antibiotics. Continue Lasix to get the patient negative balance and prevent fluid from coming back. Encourage nutrition to improve. Spacing as appropriate fluid compartments. Continue bronchodilators and other supportive treatment. Job#: [id number]
[2017-07-23 16:00] VITALS: BP 133/72
[2017-07-23 20:00] VITALS: BP_SYST 142; BP_DIAS 66; BP_DIAS 84
[2017-07-24] VITALS (7 sets, daily range): BP systolic 99–145; BP diastolic 54–79
[2017-07-24] MEDS: DOXYCYCLINE 100MG/NS 100ML 100 ML IV SCH ×2 (01:18→12:50)
[2017-07-24] MEDS: ALBUTEROL SULF 0.083% NEB SOLN 3 ML NEB NEB SCH ×6 (02:35→23:17)
[2017-07-24] MEDS: IPRATROPIUM BROMIDE 0.02% 2.5 ML NEB NEB SCH ×6 (02:35→23:17)
[2017-07-24] MEDS: CEFEPIME HCL 1 GM VIAL IV SCH ×3 (05:34→22:17)
[2017-07-24] MEDS: FUROSEMIDE 40 MG TAB PO SCH (08:32)
[2017-07-24] MEDS: CARVEDILOL 3.125 MG TAB PO SCH ×2 (08:32→17:00)
[2017-07-24] MEDS: LISINOPRIL 10 MG TAB PO SCH (08:32)
[2017-07-24] MEDS: ACETAMINOPHEN 325 MG TAB PO PRN (10:27)
--- NOTE | 2017-07-24 14:49 | Progress Note ---
DATE: July 24, 2017 PULMONARY MEDICINE PROGRESS NOTE SUBJECTIVE: Mr. Rodas was seen and examined at bedside today. The patient continues with slow steady progress, 99% oxygen saturation on 2 liters by nasal cannula. No new fevers recorded. Patient with multiple voids. No worsening respiratory distress episodes. REVIEW OF SYSTEMS: No bleeding. No diarrhea. OBJECTIVE VITAL SIGNS: Afebrile. Vital signs noted per electronic record. GENERAL: In no acute distress, alert and calm. HEENT: Normocephalic, atraumatic. NECK: Supple. Throat midline. LUNGS: Bilateral air entry, few rhonchi, mostly clear but limited due to decreased effort. CARDIOVASCULAR: S1 and S2. No murmurs, rubs, or gallops. ABDOMEN: Soft and nontender. EXTREMITIES: No cyanosis. No clubbing. There is no edema. INTEGUMENT: No rash. No purpura. LABORATORY DATA: No new updates. IMPRESSION 1. Fluid overload. 2. Pleural effusion, status post left-sided thoracentesis. 3. Weakness. 4. Systolic cardiomyopathy. 5. History of chronic lymphocytic leukemia. PLAN: Continue current treatment at this time. Repeat chest x-ray tomorrow. Repeat BMP tomorrow to see trend with the diuretics ongoing. For now, continue the diuretics, which include Lasix 40 mg once daily. Continue empiric antibiotics for the possibility of pneumonia, although still not sure if he has infectious pneumonia. Job#: [id number] NAKUL
[2017-07-25] VITALS (9 sets, daily range): BP systolic 81–135; BP diastolic 49–72
[2017-07-25] MEDS: DOXYCYCLINE 100MG/NS 100ML 100 ML IV SCH (01:00)
[2017-07-25] MEDS: IPRATROPIUM BROMIDE 0.02% 2.5 ML NEB NEB SCH ×6 (03:12→23:20)
[2017-07-25] MEDS: ALBUTEROL SULF 0.083% NEB SOLN 3 ML NEB NEB SCH ×6 (03:12→23:20)
[2017-07-25] MEDS: CEFEPIME HCL 1 GM VIAL IV SCH (05:23)
[2017-07-25] MEDS: BENZONATATE 100 MG CAP PO PRN (05:23)
--- NOTE | 2017-07-25 06:22 | Diagnostic Imaging Report ---
EXAM: CHEST SINGLE (PORTABLE), AP 1 view INDICATION: Congestive heart failure COMPARISON: AP view of the chest July 22, 2017 FINDINGS: LINES/TUBES: None LUNGS: Stable pulmonary edema. PLEURA: Small to moderate right pleural effusion. Trace left pleural effusion. HEART AND MEDIASTINUM: Normal size and contour. BONES AND SOFT TISSUES: No acute findings. IMPRESSION: No interval change in appearance of the chest. Signed by: Dr. Olamide Banks M.D. on 07/25/2017 6:19 AM
[2017-07-25 07:22] LABS: HEMATOCRIT 28.5 % (38.2-49.6); HEMOGLOBIN 8.4 g/dL (14.0-18.0); LYMPHOCYTES # (AUTO) 148.3 (1.0-3.2); LYMPHOCYTES % 95.7 % (18.0-39.1); MEAN CORPUSCULAR HEMOGLOBIN 27.9 pg (28-32); MEAN CORPUSCULAR HGB CONC 29.5 g/dL (31-35); MEAN CORPUSCULAR VOLUME 94.7 fL (81-99); MONOCYTES # (AUTO) 0.1 (0.2-0.8); MONOCYTES % 0.1 % (4.4-11.3); NEUTROPHILS # (AUTO) 6.3 (2.1-6.9); PLATELET COUNT 134 x10e3/uL (140-360); RED BLOOD COUNT 3.01 x10e6/uL (4.3-5.7); RED CELL DISTRIBUTION WIDTH 28.3 % (11.7-14.4)
[2017-07-25 07:54] LABS: LYMPHOCYTES % (MANUAL) 96 % (19-48); NEUTROPHILS % (MANUAL) 4 % (40-74); SMUDGE CELLS MODERATE
[2017-07-25 07:55] LABS: ANISOCYTOSIS MARKED; PLATELET ESTIMATE SLIGHTLY DECREASED; PLATELET MORPHOLOGY COMMENT NORMAL
[2017-07-25 08:00] LABS: ALANINE AMINOTRANSFERASE 44 IU/L (0-55); ALBUMIN/GLOBULIN RATIO 0.7 (0.8-2.0); ALKALINE PHOSPHATASE 204 IU/L (40-150); BLOOD UREA NITROGEN 11 mg/dL (7-26); BUN/CREATININE RATIO 19 (6-25); CALCIUM 8.4 mg/dL (8.4-10.2); CARBON DIOXIDE 33 mmol/L (22-29); CHLORIDE 88 mmol/L (98-107); CREATININE, SERUM 0.59 mg/dL (0.72-1.25); EST GLOMERULAR FILTRATION RATE > 60 ML/MIN (60-); GLUCOSE 120 mg/dL (74-118); SODIUM 133 mmol/L (136-145)
[2017-07-25] MEDS: CARVEDILOL 3.125 MG TAB PO SCH ×2 (09:21→16:48)
[2017-07-25] MEDS: FUROSEMIDE 40 MG TAB PO SCH (09:21)
[2017-07-25] MEDS: LISINOPRIL 10 MG TAB PO SCH (09:21)
[2017-07-25] MEDS: ACETAMINOPHEN 325 MG TAB PO PRN ×2 (09:46→21:56)
[2017-07-25] MEDS ORDERED: POTASSIUM CHLORIDE 20 MEQ TAB CR PO ONE (12:05)
--- NOTE | 2017-07-25 16:29 | Progress Note ---
DATE: July 25, 2017 PULMONARY MEDICINE PROGRESS NOTE SUBJECTIVE: Mr. Rodas was seen and examined at bedside. He denies any new worsening respiratory distress episodes. Two liters per minute by nasal cannula oxygen intake. He has 99% oxygen saturation. He had 3 bowel movements yesterday. The patient continues to tolerate the diuretics, although the blood pressure sometimes gets to low normal. REVIEW OF SYSTEMS: No bleeding. No rash. OBJECTIVE VITAL SIGNS: Afebrile. Vital signs noted per electronic record. GENERAL: In no acute distress, alert and calm but weak. HEENT: Normocephalic, atraumatic. NECK: Supple. Throat midline. LUNGS: Bilateral air entry, decreased breath sounds at the bases, especially right base. CARDIOVASCULAR: S1 and S2. No murmurs, rubs, or gallops. ABDOMEN: Soft and nontender. EXTREMITIES: No clubbing. No cyanosis. No edema. INTEGUMENT: No rash. No purpura. LABORATORY DATA: White count 155, 29 hematocrit, 134 platelets, 3.0 potassium, 15 BUN, 0.6 creatinine. BNP is 2929. Albumin is 2.0. Chest x-ray with no interval changes. Right much greater than left pleural effusion, small to moderate on the right side. IMPRESSION AND PLAN 1. Fluid overload. 2. Systolic cardiomyopathy. 3. Pleural effusions. 4. Weakness. 5. Treat for pneumonia. Continue current therapy at this time mainly with diuretics. He is to finish the antibiotic course. Continue cardiac medications. Control and optimize heart function. Bronchodilators will be continued. Keep him at low steroid dose as needed due to immunosuppressed state. Replete potassium today, being 3.0. Job#: [id number]
[2017-07-26] VITALS (9 sets, daily range): BP systolic 98–125; BP diastolic 55–71
[2017-07-26] MEDS: ALBUTEROL SULF 0.083% NEB SOLN 3 ML NEB NEB SCH ×6 (03:12→23:22)
[2017-07-26] MEDS: IPRATROPIUM BROMIDE 0.02% 2.5 ML NEB NEB SCH ×6 (03:12→23:22)
[2017-07-26] MEDS: ACETAMINOPHEN 325 MG TAB PO PRN ×2 (06:27→16:01)
[2017-07-26] MEDS: LISINOPRIL 10 MG TAB PO SCH (09:54)
[2017-07-26] MEDS: CARVEDILOL 3.125 MG TAB PO SCH ×2 (09:54→16:11)
[2017-07-26] MEDS: FUROSEMIDE 40 MG TAB PO SCH (09:54)
[2017-07-26 11:34] LABS: ANION GAP 11.9 mmol/L (8-16); BLOOD UREA NITROGEN 10 mg/dL (7-26); BUN/CREATININE RATIO 16 (6-25); CALCIUM 8.3 mg/dL (8.4-10.2); CARBON DIOXIDE 36 mmol/L (22-29); CHLORIDE 86 mmol/L (98-107); CREATININE, SERUM 0.61 mg/dL (0.72-1.25); EST GLOMERULAR FILTRATION RATE > 60 ML/MIN (60-); GLUCOSE 146 mg/dL (74-118); SODIUM 131 mmol/L (136-145)
[2017-07-26 11:36] LABS: POTASSIUM 2.9 mmol/L (3.5-5.1)
[2017-07-26] MEDS ORDERED: POTASSIUM CHLORIDE 20 MEQ TAB CR PO STA (11:40)
[2017-07-26] MEDS ORDERED: POTASSIUM CHLORIDE 20 MEQ TAB CR PO SCH ×3 (12:00→14:00)
--- NOTE | 2017-07-26 13:51 | Progress Note ---
DATE: July 26, 2017 PULMONARY MEDICINE PROGRESS NOTE SUBJECTIVE: Mr. Rodas was seen and examined at bedside. He continues to have some weakness. Three bowel movements achieved. Patient with 99% oxygen saturation. He continues to feel better and stronger and is eating most of his diet. REVIEW OF SYSTEMS: No headache. No rash. OBJECTIVE VITAL SIGNS: Afebrile. Vital signs noted per electronic record. GENERAL: In no acute distress, alert, calm and talkative. HEENT: Normocephalic, atraumatic. NECK: Supple. Throat midline. LUNGS: Bilateral air entry, decreased breath sounds at the bases, a few rhonchi. CARDIOVASCULAR: S1 and S2. No murmurs, rubs, or gallops. ABDOMEN: Soft and nontender. EXTREMITIES: No clubbing. No cyanosis. No edema. INTEGUMENT: No rash. No purpura. LABORATORY DATA: Potassium 2.9, 10 BUN, creatinine 0.6. IMPRESSION AND PLAN 1. Hypokalemia. 2. Fluid overload, improved. 3. Pleural effusions, improving slowly. 4. Chronic lymphocytic leukemia. Continue Lasix at this time. Repeat chest x-ray to ensure that the effusions are getting better. Follow up closely. Patient needs continued evaluation of electrolytes. Treatment for pneumonia was given. Potassium was repleted. Job#: [id number]
[2017-07-27] VITALS (8 sets, daily range): BP systolic 96–140; BP diastolic 52–70
[2017-07-27] MEDS: ALBUTEROL SULF 0.083% NEB SOLN 3 ML NEB NEB SCH ×6 (03:00→23:30)
[2017-07-27] MEDS: IPRATROPIUM BROMIDE 0.02% 2.5 ML NEB NEB SCH ×6 (03:00→23:30)
[2017-07-27] MEDS: ACETAMINOPHEN 325 MG TAB PO PRN (08:30)
[2017-07-27] MEDS: CARVEDILOL 3.125 MG TAB PO SCH ×2 (09:00→17:00)
[2017-07-27] MEDS: FUROSEMIDE 40 MG TAB PO SCH (09:00)
[2017-07-27] MEDS: LISINOPRIL 10 MG TAB PO SCH (09:00)
[2017-07-27 09:10] LABS: ANION GAP 11.7 mmol/L (8-16); BLOOD UREA NITROGEN 9 mg/dL (7-26); BUN/CREATININE RATIO 15 (6-25); CALCIUM 8.4 mg/dL (8.4-10.2); CARBON DIOXIDE 32 mmol/L (22-29); CHLORIDE 89 mmol/L (98-107); EST GLOMERULAR FILTRATION RATE > 60 ML/MIN (60-); GLUCOSE 137 mg/dL (74-118); POTASSIUM 3.7 mmol/L (3.5-5.1); SODIUM 129 mmol/L (136-145)
[2017-07-27] MEDS: POTASSIUM CHLORIDE 20 MEQ TAB CR PO SCH (10:35)
--- NOTE | 2017-07-27 12:43 | Progress Note ---
DATE: July 27, 2017 PULMONARY MEDICINE PROGRESS NOTE SUBJECTIVE: Mr. Rodas was seen and examined at bedside. He continues to have steady progress. Of note, sodium is going down. He is eating well. Actually, he has been getting up and he does not mention that he is. Continues on nasal cannula oxygen. REVIEW OF SYSTEMS: No headaches, no constipation. OBJECTIVE VITAL SIGNS: Afebrile. Vital signs noted per electronic record. GENERALLY: No acute distress, alert and calm. HEENT: Normocephalic, atraumatic. NECK: Supple. Throat midline. LUNGS: Bilateral air entry, decreased breath sounds at the base, decreased effort. CARDIOVASCULAR: S1 and S2. No murmurs, rubs or gallops. ABDOMINAL: Soft, nontender. EXTREMITIES: No clubbing, no cyanosis. There is no edema. INTEGUMENT: No rash. No purpura. LABS: Sodium 129, potassium 3.7, bicarbonate 32, creatinine 0.6. White count 154, hematocrit 28. IMPRESSION AND PLAN 1. Chronic lymphocytic leukemia. 2. Weakness/debility. 3. Pleural effusion, status post thoracentesis. 4. Fluid overload. Fluid overload continues to improve; so, will follow up on the diuretics. Intermittent x-rays will need to be done to ensure it stays within goal. Furthermore, daily weights is reasonable, but at least the patient should be weighed often when he gets out of the hospital. Requested PT and OT. Arrangements for rehabilitation are being made. Will follow along closely. Job#: [id number] EV
[2017-07-27] MEDS: HYDROCODONE/APAP 10MG-325MG TAB PO PRN (14:53)
[2017-07-27] MEDS ORDERED: BALSAM PERU/CASTOR OIL 60 GM OINT...G. TP PRN (16:00)
[2017-07-28] VITALS (7 sets, daily range): BP systolic 101–153; BP diastolic 55–71
[2017-07-28] MEDS: ACETAMINOPHEN 325 MG TAB PO PRN ×2 (00:11→20:56)
[2017-07-28] MEDS: IPRATROPIUM BROMIDE 0.02% 2.5 ML NEB NEB SCH ×6 (03:00→23:00)
[2017-07-28] MEDS: ALBUTEROL SULF 0.083% NEB SOLN 3 ML NEB NEB SCH ×6 (03:00→23:00)
[2017-07-28 06:43] LABS: ANION GAP 10.8 mmol/L (8-16); BLOOD UREA NITROGEN 9 mg/dL (7-26); BUN/CREATININE RATIO 15 (6-25); CALCIUM 8.2 mg/dL (8.4-10.2); CARBON DIOXIDE 33 mmol/L (22-29); CHLORIDE 91 mmol/L (98-107); EST GLOMERULAR FILTRATION RATE > 60 ML/MIN (60-); GLUCOSE 118 mg/dL (74-118); POTASSIUM 3.8 mmol/L (3.5-5.1); SODIUM 131 mmol/L (136-145)
[2017-07-28] MEDS: FUROSEMIDE 40 MG TAB PO SCH (09:34)
[2017-07-28] MEDS: POTASSIUM CHLORIDE 20 MEQ TAB CR PO SCH (09:35)
[2017-07-28] MEDS: CARVEDILOL 3.125 MG TAB PO SCH ×2 (11:22→17:31)
[2017-07-28] MEDS: LISINOPRIL 10 MG TAB PO SCH (11:23)
[2017-07-28] MEDS: HYDROCODONE/APAP 10MG-325MG TAB PO PRN (12:07)
--- NOTE | 2017-07-28 12:35 | Progress Note ---
DATE: July 28, 2017 PULMONARY MEDICINE PROGRESS NOTE SUBJECTIVE: Mr. Rodas was seen and examined at bedside. He continues to have steady improvement. He is slowly stronger. He is trying to decide on which rehab facility he wants to go to. Has 100% oxygen saturation on room air FiO2. One bowel movement. REVIEW OF SYSTEMS: No headaches, no diarrhea. OBJECTIVE VITAL SIGNS: Afebrile. Vital signs noted per electronic record. GENERALLY: No acute distress, alert and calm. HEENT: Normocephalic, atraumatic. NECK: Supple. Throat midline. LUNGS: Bilateral air entry, decreased breath sounds at the bases, CARDIOVASCULAR: S1 and S2. No murmurs, rubs or gallops. ABDOMEN: Soft, nontender. EXTREMITIES: No clubbing, no cyanosis. There is no edema. INTEGUMENT: No rash. No purpura. LABS: Sodium 131, 3.8 potassium, 9 BUN, 0.6 creatinine, 154 white count, 29 hematocrit, 134 platelets. IMPRESSION AND PLAN 1. Fluid overload. 2. Pleural effusion. 3. Weakness. 4. Chronic lymphocytic leukemia. 5. Systolic cardiomyopathy. Continue current treatment. Continue cardiac medications for heart failure. Continue diuretic. Repeat x-rays today as discharge planning is being done. Therefore, we will want to make sure the fluid is controlled before discharge. Intermittent electrolytes to make sure sodium and potassium are within range. Job#: [id number]
--- NOTE | 2017-07-28 13:18 | Diagnostic Imaging Report ---
PROCEDURE:CHEST SINGLE (PORTABLE) TECHNIQUE:Portable AP chest INDICATION:Fluid overload COMPARISON:[facility], DX, CHEST SINGLE (PORTABLE), 07/25/2017, 5:50. FINDINGS: Trace pleural effusions. Bibasilar air space opacity (left greater than right) with interval improvement relative to July 25. Stable cardiomediastinal silhouette, with upper limits of normal heart size for technique. Decreased central vascular congestion. Intact skeleton. CONCLUSION: Interval improvement in pulmonary edema and atelectasis relative to July 25, 2017. Small pleural effusions with bibasilar atelectasis. Dictated by: Joselito Miguel M.D. on 07/28/2017 at 13:20 Electronically approved by: Joselito Miguel M.D. on 07/28/2017 at 13:20
[2017-07-29 00:54] VITALS: BP 93/51
[2017-07-29] MEDS: ALBUTEROL SULF 0.083% NEB SOLN 3 ML NEB NEB SCH ×3 (03:00→11:00)
[2017-07-29] MEDS: IPRATROPIUM BROMIDE 0.02% 2.5 ML NEB NEB SCH ×3 (03:00→11:00)
[2017-07-29] MEDS: HYDROCODONE/APAP 10MG-325MG TAB PO PRN ×2 (05:14→10:42)
[2017-07-29 05:53] VITALS: BP 127/59
[2017-07-29 07:00] VITALS: BP 119/67
[2017-07-29 08:16] VITALS: BP 119/67
[2017-07-29] MEDS: CARVEDILOL 3.125 MG TAB PO SCH (09:24)
[2017-07-29] MEDS: FUROSEMIDE 40 MG TAB PO SCH (09:25)
[2017-07-29] MEDS: LISINOPRIL 10 MG TAB PO SCH (09:25)
[2017-07-29] MEDS: POTASSIUM CHLORIDE 20 MEQ TAB CR PO SCH (09:25)
--- NOTE | 2017-07-29 11:41 | Discharge Summary ---
PRIMARY CARE DOCTOR: Daron Chavira MD, at [facility]. FINAL DIAGNOSIS: Acute systolic congestive heart failure. SECONDARY DIAGNOSES 1. Presumed pneumonia, status post intravenous antibiotics. 2. Chronic lymphocytic leukemia. Patient does not want chemotherapy. CONSULTANTS 1. Dr. Fall, cardiology. 2. Dr. Álvarez, manager language. PROCEDURES/STUDIES PERFORMED: Thoracentesis. HISTORY: Per H and P. HOSPITAL COURSE: After a long discussion with and granddaughter, the decision was made to make him comfort care only. However, we could not send him back to [facility] under hospice care due to the fact that the family does not have the money to pay for the room and board. The cannot take care of him at home. Therefore, another skilled nursing was looked at. Finally, after 11 days, we were able to secure [facility] for hospice. CONDITION ON DISCHARGE: Hospice. DISCHARGE MEDICATIONS: Please see medication reconciliation form. The patient was seen and examined today. CHERYL COUCH M.D. Job#: [id number] cc:DARON CHAVIRA MD
[2017-07-29 11:51] VITALS: BP 91/50
--- NOTE | 2017-07-29 12:47 | Progress Note ---
DATE: July 29, 2017 PULMONARY MEDICINE PROGRESS NOTE SUBJECTIVE: Mr. Rodas was seen and examined at bedside. He continues to have steady progress. Potassium is better today. He still has shortness of breath and he awaits his rehabilitation. REVIEW OF SYSTEMS: No headaches, no double vision. OBJECTIVE VITALS: Afebrile. Vital signs noted per electronic record. GENERAL: No acute distress, alert and calm. HEENT: Normocephalic, atraumatic. NECK: Supple. Throat midline. LUNGS: Bilateral air entry, a few rhonchi. CARDIOVASCULAR: S1 and S2. No murmurs, rubs or gallops. ABDOMEN: Soft, nontender. EXTREMITIES: No clubbing, no cyanosis. There is only trace edema at the feet. INTEGUMENT: No rash. No purpura. IMPRESSION AND PLAN 1. Fluid overload. 2. Pleural effusion. 3. Weakness. 4. Chronic lymphocytic leukemia. 5. Systolic cardiomyopathy. Continue current treatment at this time. The patient has to get outpatient followup of his effusions or he may have to get diuretics increased or repeat thoracentesis. Continue strengthening his heart. I agree with the rehab evaluation and transfer. Continued electrolyte followup is recommended as well when he leaves the hospital. Job#: [id number]
== END 2017-07-29 13:11 | disposition hospice, inpatient (51) | DRG 291 ==
LOC: ER 17:32 → MED/SURG3 20:57
PROVIDERS: ADMIT Internal Medicine; ATTEND Internal Medicine
PROC: 0W9B3ZZ Drainage of Left Pleural Cavity, Percutaneous Approach (ICD-10-PCS; principal; 2017-07-22)
DX: I11.0 Hypertensive heart disease with heart failure (principal); J15.9 Unspecified bacterial pneumonia; J90 Pleural effusion, not elsewhere classified; E87.1 Hypo-osmolality and hyponatremia; C91.10 Chronic lymphocytic leukemia of B-cell type not having achieved remission; J91.8 Pleural effusion in other conditions classified elsewhere; I50.23 Acute on chronic systolic (congestive) heart failure; F03.90 Unspecified dementia, unspecified severity, without behavioral disturbance, psychotic disturbance, mood disturbance, and anxiety; R53.81 Other malaise; E87.70 Fluid overload, unspecified; E86.0 Dehydration; R09.02 Hypoxemia; E78.5 Hyperlipidemia, unspecified; Z87.891 Personal history of nicotine dependence; E87.6 Hypokalemia
CPT/HCPCS: 32555; 36415; 71045; 74470; 76604; 80048; 80053; 82550; 82553; 83605; 83615; 83735; 83880; 84100; 84157; 84478; 84484; 85025; 85610; 85730; 87040; 89051; 93005; 94640; 96361; 97139; 99284; J0692; J0696; J1940; J2543; J3370; J7030